=== PATIENT | male | born 1935 | race Caucasian/White ===

== ENCOUNTER → 2016-10-27 | Outpatient (CLI) | payer MEDICARE, OTHER ==
[~2016-10-27] MED LIST: ACET325T38 PO; ACET325T49 PO; ASP81CT; ASP81TEC PO; BETA1TAB15 PO; CIPR-225 PO; CLPD75T; DIGO250T PO; DLT180CCR; FENO54TA PO; FENO67CA PO; GABA600T2 PO; GBPN300C PO; HCT25T; HCT25T PO; HYDR-3583 PO; LEVO500T2 PO; LEVO500T69 PO; LSNP10T PO; MELA5CAP PO; METO-274 PO; METO100T5 PO; METO50TA7 PO; MTP100TCR; MULT-974 PO; NF-TYLARTH PO; NFNEB10T PO; NTR.4SL SL; PHEN-640 PO; PNT40TEC PO; RIVA20TA2 PO; ROSU10TA12; SIMV40TA4 PO; VLS80C; [UNRECOGNIZED DRUG - OTHER] PO; [UNRECOGNIZED DRUG - OTHER] PO; [UNRECOGNIZED DRUG - OTHER] PO
--- OUTSIDE RECORDS SUMMARY | 2016-10-27 11:17 | XMS REPORT | Continuity of Care Document ---
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 If you do not see the information that you expected, contact Release of Information in the Health Information Management department at [phone] for further assistance in locating additional records.[facility] Active Allergies and Adverse Reactions No Known [...] C-Vit Take 1 Cap by mouth Active Y-Xxpyzs-Eed-OM-3 daily. (OCUVITE) 440-57-3-150 qk-iiiw-xq-mg cap MULTIVITAMIN PO Take 1 Tab by [...] Encounters Date Type Specialty Providers Description 10/03/2016 [facility] Radiology Aron Gaines MD Encounter 10/03/2016 Office Visit Orthopedic Surgery Aron Gaines MD Postop check (Primary Dx) 09/29/2016 Orders Only Orthopedic Surgery Aron Gaines MD Surgery follow-up (Primary Dx) 08/29/2016 [facility] Radiology Aron Gaines MD Encounter 08/29/2016 Office Visit Orthopedic Surgery Aron Gaines MD Postop check (Primary Dx) 08/23/2016 Orders Only Orthopedic Surgery Aron Gaines MD Right foot pain (Primary Dx) 08/15/2016 [facility] Radiology Aron Gaines MD Encounter 08/15/2016 Office Visit Orthopedic Surgery Aron Gaines MD Postop check (Primary Dx) 08/11/2016 Orders Only Orthopedic Surgery Aron Gaines MD Right foot pain (Primary Dx) 08/09/2016 Anesthesia Anesthesiology Radha Bernardo MD Event 08/01/2016 [facility] Radiology Gabby Christina APRN Encounter 08/01/2016 Office [...] Taken Blood Pressure 142/95 08/15/2016 11:27 AM MAKE UP EDITOR Pulse 88 08/15/2016 11:27 AM MAKE UP EDITOR Temperature 36.3 C (97.4 F) 07/11/2016 11:05 AM CDT Respiratory Rate - - Height 1.676 m (5' 6") 08/29/2016 1:11 PM MAKE UP EDITOR Weight 92.987 kg (205 lb) 08/29/2016 1:11 PM MAKE UP EDITOR Body Mass Index 33.1 08/29/2016 1:11 PM MAKE UP EDITOR Oxygen Saturation 95% 07/11/2016 11:05 AM CDT Plan of Care Health Maintenance Due Date Last Done Comments Physical (Comprehensive) 1942 Exam Pertussis Vaccine 1945 Tetanus Vaccine 1951 Shingles Vaccine 1994 Prevnar/Pneumovax (#1) 1999 Influenza Vaccine 06/01/2016 Procedures from Last 3 Months Procedure Name Priority Date/Time Associated Diagnosis Comments ANESTHESIA PERIPHERAL Routine 08/09/2016 Results for this NERVE BLOCK 10:36 AM MAKE UP EDITOR procedure are in the results section. ANESTHESIA PERIPHERAL Routine 08/09/2016 Results for this NERVE BLOCK 10:36 AM MAKE UP EDITOR procedure are in the results section. Results [...] - Tue Oct 03, 2016 12:31 PM MAKE UP EDITOR AP, oblique, and lateral projections of the [...]
[2016-10-27 11:27] LABS: BASOPHILS # (AUTO) 0.1 10^3/uL (0.0-0.1); BASOPHILS % (AUTO) 1 % (0-10); EOSINOPHILS # (AUTO) 0.2 10^3/uL (0.0-0.3); EOSINOPHILS % (AUTO) 3 % (0-10); LYMPHOCYTES # (AUTO) 1.2 X 10^3 (1.0-4.0); LYMPHOCYTES % (AUTO) 21 % (12-44); MEAN CORPUSCULAR HEMOGLOBIN 30 PG (25-34); MEAN CORPUSCULAR HGB CONC 33 G/DL (32-36); MEAN CORPUSCULAR VOLUME 91 FL (80-99); MEAN PLATELET VOLUME 8.6 FL (7.4-10.4); MONOCYTES # (AUTO) 0.8 X 10^3 (0.0-1.0); MONOCYTES % (AUTO) 13 % (0-12); NEUTROPHILS # (AUTO) 3.5 X 10^3 (1.8-7.8); NEUTROPHILS % (AUTO) 62 % (42-75); PLATELET COUNT 212 10^3/uL (130-400); RED BLOOD COUNT 4.75 10^6/uL (4.35-5.85); RED CELL DISTRIBUTION WIDTH 13.1 % (10.0-14.5); WHITE BLOOD COUNT 5.7 10^3/uL (4.3-11.0)
[2016-10-27 11:45] LABS: ALANINE AMINOTRANSFERASE 20 U/L (0-55); ALBUMIN 4.4 G/DL (3.2-4.5); ANION GAP 8 MMOL/L (5-14); ASPARTATE AMINO TRANSFERASE 20 U/L (5-34); BILIRUBIN,TOTAL 0.7 MG/DL (0.1-1.0); BLOOD UREA NITROGEN 23 MG/DL (7-18); BUN/CREATININE RATIO 20; CALCIUM 9.3 MG/DL (8.5-10.1); CARBON DIOXIDE 27 MMOL/L (21-32); CHLORIDE 105 MMOL/L (98-107); CREATININE SERUM 1.14 MG/DL (0.60-1.30); GFR ESTIMATED > 60; GLUCOSE 108 MG/DL (70-105); POTASSIUM 4.2 MMOL/L (3.6-5.0); SODIUM 140 MMOL/L (135-145); TOTAL PROTEIN 6.9 G/DL (6.4-8.2)
--- NOTE | 2016-10-27 13:04 | Diagnostic Imaging Report ---
INDICATION: Claudication. TECHNIQUE: Noninvasive arterial study performed. FINDINGS: Segmental limb pressures showed no significant drop-off or abnormality of the waveforms. Ankle-brachial index was 1.0 on the left side and 0.91 on the right side. IMPRESSION: Slight diminishment in ankle brachial index of the right side. Segmental limb pressures showed no significant degradation of the waveform on this side. There is no other significant finding. Dictated by: Dictated on workstation # [id number]
[2016-10-28 07:58] LABS: ERYTHROCYTE SEDIMENTATION RATE 20 MM/HR
== END ==
LOC: RAD 11:12
PROVIDERS: ATTEND Internal Medicine
DX: I70.235 Atherosclerosis of native arteries of right leg with ulceration of other part of foot (principal)
CPT/HCPCS: 36415; 80053; 85025; 85652; 93923

== ENCOUNTER → 2017-01-18 | Outpatient (CLI) | payer MEDICARE, OTHER ==
[2017-01-18 09:36] LABS: BASOPHILS % (AUTO) 1 % (0-10); EOSINOPHILS # (AUTO) 0.1 10^3/uL (0.0-0.3); EOSINOPHILS % (AUTO) 3 % (0-10); LYMPHOCYTES # (AUTO) 1.1 X 10^3 (1.0-4.0); LYMPHOCYTES % (AUTO) 23 % (12-44); MEAN CORPUSCULAR HEMOGLOBIN 30 PG (25-34); MEAN CORPUSCULAR HGB CONC 33 G/DL (32-36); MEAN CORPUSCULAR VOLUME 91 FL (80-99); MONOCYTES # (AUTO) 0.7 X 10^3 (0.0-1.0); MONOCYTES % (AUTO) 15 % (0-12); NEUTROPHILS # (AUTO) 2.8 X 10^3 (1.8-7.8); NEUTROPHILS % (AUTO) 59 % (42-75); PLATELET COUNT 184 10^3/uL (130-400); RED BLOOD COUNT 4.79 10^6/uL (4.35-5.85); RED CELL DISTRIBUTION WIDTH 13.1 % (10.0-14.5); WHITE BLOOD COUNT 4.8 10^3/uL (4.3-11.0)
[2017-01-18 09:55] LABS: ERYTHROCYTE SEDIMENTATION RATE 5 MM/HR (0-30)
--- NOTE | 2017-01-18 12:48 | Diagnostic Imaging Report ---
3 views of the right foot. INDICATION: Nonhealing wound in the foot. FINDINGS: There is fusion hardware across the subtalar joints and proximal tarsal bones with plate and screws seen. There is suggestion of osseous fusion between the cuboid and calcaneus and at the subtalar joint. There is fusion hardware also between the talus and the navicular with uncertain fusion. Decreased bone density is seen overall as well as flattening of the plantar arch. There is bone destruction or focal erosion or periosteal reaction identified. No prior studies are available for comparison. No soft tissue air is seen. IMPRESSION: Post fusion changes in the hindfoot with suggestion of osteopenia and flattening of the plantar arch. No radiographic evidence of osteomyelitis. Dictated by: Dictated on workstation # [id number]
== END ==
LOC: RAD 09:03
PROVIDERS: ATTEND Internal Medicine
DX: I25.10 Atherosclerotic heart disease of native coronary artery without angina pectoris (principal); I70.235 Atherosclerosis of native arteries of right leg with ulceration of other part of foot; S91.301A Unspecified open wound, right foot, initial encounter; T81.31XA Disruption of external operation (surgical) wound, not elsewhere classified, initial encounter; R23.8 Other skin changes
CPT/HCPCS: 36415; 73630; 85025; 85652

== ENCOUNTER 2017-01-22 08:24 | Outpatient (RCR) | payer MEDICARE, OTHER ==
--- OUTSIDE RECORDS SUMMARY | 2016-10-26 08:09 | XMS REPORT | Continuity of Care Document ---
Author Author [facility] Organization [facility] 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 If you do not see the information that you expected, contact Release of Information in the Health Information Management department at [phone] for further assistance in locating additional records.[facility] Active Allergies and Adverse Reactions No Known Allergies Current Medications Prescription Sig. Disp. Refills Start End Date Status Date simvastatin (ZOCOR) 40 mg Take 40 mg by mouth 05/01/20 Active tablet daily. 16 XARELTO 20 mg tab tablet Take 20 mg by mouth at 03/28/20 Active bedtime daily. 16 metoprolol tartrate 100 mg twice daily. 03/02/20 Active (LOPRESSOR) 100 mg tablet 16 hydrochlorothiazide Take 12.5 mg by mouth 05/03/20 Active (HYDRODIURIL) 12.5 mg daily. 16 capsule gabapentin (NEURONTIN) 300 mg at bedtime daily. 03/02/20 Active 300 mg capsule 16 finasteride (PROSCAR) 5 Take 5 mg by mouth at 04/04/20 Active mg tablet bedtime daily. 16 fenofibrate(+) (TRIGLIDE) Take 54 mg by mouth at 03/02/20 Active 54 mg tablet bedtime daily. 16 aspirin EC 81 mg tablet Take 162 mg by mouth Active daily. Take with food. other medication Take 1 Dose by mouth Active daily. Arithomend losartan (COZAAR) 50 mg Take 50 mg by mouth Active tablet daily. Vit C-Vit Take 1 Cap by mouth Active G-Ymrgrq-Cta-OM-3 daily. (OCUVITE) 419-07-3-150 iu-krul-us-mg cap MULTIVITAMIN PO Take 1 Tab by mouth at Active bedtime daily. acetaminophen (TYLENOL) Take 2 Tabs by mouth 0 07/11/20 Active 325 mg tablet every 6 hours as needed. 16 oxyCODONE (ROXICODONE, Take 1-2 Tabs by mouth 110 Tab 0 07/11/20 Active OXY-IR) 5 mg tablet every 3 hours as needed 16 docusate (COLACE) 100 mg Take 1 Cap by mouth twice 180 Cap 3 07/11/20 Active capsule daily. 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 Most Recent Encounters Date Type Specialty Providers Description 10/03/2016 [facility] Radiology Aron Gaines MD Encounter 10/03/2016 Office Visit Orthopedic Surgery Aron Gaines MD Postop check (Primary Dx) 09/29/2016 Orders Only Orthopedic Surgery Aron Gaines MD Surgery follow-up (Primary Dx) 08/29/2016 [facility] Radiology Aron Gaines MD Encounter 08/29/2016 Office Visit Orthopedic Surgery Aron Gaines MD Postop check (Primary Dx) 08/23/2016 Orders Only Orthopedic Surgery Aron Gaines MD Right foot pain (Primary Dx) 08/15/2016 [facility] Radiology Aron Gaines MD Encounter 08/15/2016 Office Visit Orthopedic Surgery Aron Gaines MD Postop check (Primary Dx) 08/11/2016 Orders Only Orthopedic Surgery Aron Gaines MD Right foot pain (Primary Dx) 08/09/2016 Anesthesia Anesthesiology Radha Bernardo MD Event 08/01/2016 [facility] Radiology Gabby Christina APRN Encounter 08/01/2016 Office Visit Orthopedic Surgery Aron Gaines MD Postop check (Primary Dx) 07/28/2016 Orders Only Orthopedic Surgery Gabby Christina APRN Right foot pain (Primary Dx) Social History Tobacco Use Types Packs/Day Years Used Date Never Smoker Smokeless Tobacco: Never Used Alcohol Use Drinks/Week oz/Week Comments No Last Filed Vital Signs Vital Sign Reading Time Taken Blood Pressure 142/95 08/15/2016 11:27 AM COFFEE SHOP MANAGER Pulse 88 08/15/2016 11:27 AM COFFEE SHOP MANAGER Temperature 36.3 C (97.4 F) 07/11/2016 11:05 AM CDT Respiratory Rate - - Height 1.676 m (5' 6") 08/29/2016 1:11 PM COFFEE SHOP MANAGER Weight 92.987 kg (205 lb) 08/29/2016 1:11 PM COFFEE SHOP MANAGER Body Mass Index 33.1 08/29/2016 1:11 PM COFFEE SHOP MANAGER Oxygen Saturation 95% 07/11/2016 11:05 AM CDT Plan of Care Health Maintenance Due Date Last Done Comments Physical (Comprehensive) 1942 Exam Pertussis Vaccine 1945 Tetanus Vaccine 1951 Shingles Vaccine 1994 Prevnar/Pneumovax (#1) 1999 Influenza Vaccine 06/01/2016 Procedures from Last 3 Months Procedure Name Priority Date/Time Associated Diagnosis Comments ANESTHESIA PERIPHERAL Routine 08/09/2016 Results for this NERVE BLOCK 10:36 AM COFFEE SHOP MANAGER procedure are in the results section. ANESTHESIA PERIPHERAL Routine 08/09/2016 Results for this NERVE BLOCK 10:36 AM COFFEE SHOP MANAGER procedure are in the results section. Results from Last 3 Months FOOT COMP MIN 3 VIEWS RIGHT (10/03/2016 11:42 AM)Only the most recent of 4 results within the time period is included. 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 Joint line along the talonavicular and calcaneocuboid joints remains evident suggesting partial incomplete fusion. 2.Mild tibiotalar joint arthrosis. Arterial calcifications. 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 Osteopenia. Finalized by Collin Abdul M.D. on 10/03/2016 12:28 PM. Dictated by Collin Abdul M.D. on 10/03/2016 12:25 PM. Narrative AP, oblique, and lateral projections of the right foot. Clinical Indication: 81 years Male. Right foot surgical follow-up care. Comparison: Right foot radiographs 08/29/2016. Procedure Note Interface, Radiant Results - Tue Oct 03, 2016 12:31 PM COFFEE SHOP MANAGER AP, oblique, and lateral projections of the right foot. Clinical Indication: 81 years Male. Right foot surgical follow-up care. Comparison: Right foot radiographs 08/29/2016. IMPRESSION Findings/IMPRESSION: 1. 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 Joint line along the talonavicular and calcaneocuboid joints remains evident suggesting partial incomplete fusion. 2. Mild tibiotalar joint arthrosis. Arterial calcifications. 3. 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 Osteopenia. Finalized by Collin Abdul M.D. on 10/03/2016 12:28 PM. Dictated by Collin Abdul M.D. on 10/03/2016 12:25 PM. ANESTHESIA PERIPHERAL NERVE BLOCK (08/09/2016 10:36 AM) Narrative Radha Bernardo MD 08/09/2016 10:36 AM Anesthesia Procedure: Peripheral Nerve Block PERIPHERAL NERVE BLOCK Reason for block: at surgeon's request and post-op pain management Staff Anesthesiologist: RADHA BERNARDO Performed by: LESIA NELSON Preprocedure checklist performed: 2 patient identifiers, risks & benefits discussed, patient evaluated, timeout performed, consent obtained, patient being monitored and sterile drape Sterile technique: - Proper hand washing - Cap, mask - Sterile gloves - Skin prep for antisepsis Peripheral Nerve Block Procedure Patient position: supine Monitoring: BP, EKG and continuous pulse ox Block type: popliteal Laterality: right Injection technique: catheter Procedures: ultrasound guided Local infiltration: lidocaine Strength: 1%; Needle/cathether: Needle type: Tuohy Needle gauge: 18 G; Needle length: 3.5 in Needle location: ultrasound guidance Needle insertion depth: 4 cm Catheter at skin depth: 9 cm Procedure Outcome Injection assessment: incremental injection, negative aspiration for heme, no paresthesia on injection and local visualized surrounding nerve on ultrasound Observations: adequate block and patient sedated but conversant throughout block Additional notes: This is a late entry note, for a block that was done on the day of surgery 07/10/2016. Refer to nursing documentation for vitals and monitoring data during procedure. Anesthesia Procedure: Peripheral Nerve Block PERIPHERAL NERVE BLOCK Reason for block: at surgeon's request and post-op pain management Staff Anesthesiologist: RADHA BERNARDO Performed by: LESIA NELSON Preprocedure checklist performed: 2 patient identifiers, risks & benefits discussed, patient evaluated, timeout performed, consent obtained, patient being monitored and sterile drape Sterile technique: - Proper hand washing - Cap, mask - Sterile gloves - Skin prep for antisepsis Peripheral Nerve Block Procedure Patient position: supine Prep: ChloraPrep Monitoring: BP, EKG and continuous pulse ox Block type: saphenous Laterality: right Injection technique: single-shot Procedures: ultrasound guided Local infiltration: lidocaine Strength: 1%; Needle/cathether: Needle type: Tuohy Needle gauge: 18 G; Needle location: ultrasound guidance Procedure Outcome Injection assessment: negative aspiration for heme, no paresthesia on injection, incremental injection and local visualized surrounding nerve on ultrasound This is a late entry note, for a block that was done on the day of surgery 07/10/2016. ANESTHESIA PERIPHERAL NERVE BLOCK (08/09/2016 10:36 AM) Joe Bernardo MD 08/09/2016 10:36 AM Anesthesia Procedure: Peripheral Nerve Block PERIPHERAL NERVE BLOCK Reason for block: at surgeon's request and post-op pain management Staff Anesthesiologist: RADHA BERNARDO Performed by: LESIA NELSON Preprocedure checklist performed: 2 patient identifiers, risks & benefits discussed, patient evaluated, timeout performed, consent obtained, patient being monitored and sterile drape Sterile technique: - Proper hand washing - Cap, mask - Sterile gloves - Skin prep for antisepsis Peripheral Nerve Block Procedure Patient position: supine Monitoring: BP, EKG and continuous pulse ox Block type: popliteal Laterality: right Injection technique: catheter Procedures: ultrasound guided Local infiltration: lidocaine Strength: 1%; Needle/cathether: Needle type: Tuohy Needle gauge: 18 G; Needle length: 3.5 in Needle location: ultrasound guidance Needle insertion depth: 4 cm Catheter at skin depth: 9 cm Procedure Outcome Injection assessment: incremental injection, negative aspiration for heme, no paresthesia on injection and local visualized surrounding nerve on ultrasound Observations: adequate block and patient sedated but conversant throughout block Additional notes: This is a late entry note, for a block that was done on the day of surgery 07/10/2016. Refer to nursing documentation for vitals and monitoring data during procedure. Anesthesia Procedure: Peripheral Nerve Block PERIPHERAL NERVE BLOCK Reason for block: at surgeon's request and post-op pain management Staff Anesthesiologist: RADHA BERNARDO Performed by: LESIA NELSON Preprocedure checklist performed: 2 patient identifiers, risks & benefits discussed, patient evaluated, timeout performed, consent obtained, patient being monitored and sterile drape Sterile technique: - Proper hand washing - Cap, mask - Sterile gloves - Skin prep for antisepsis Peripheral Nerve Block Procedure Patient position: supine Prep: ChloraPrep Monitoring: BP, EKG and continuous pulse ox Block type: saphenous Laterality: right Injection technique: single-shot Procedures: ultrasound guided Local infiltration: lidocaine Strength: 1%; Needle/cathether: Needle type: Tuohy Needle gauge: 18 G; Needle location: ultrasound guidance Procedure Outcome Injection assessment: negative aspiration for heme, no paresthesia on injection, incremental injection and local visualized surrounding nerve on ultrasound This is a late entry note, for a block that was done on the day of surgery 07/10/2016.
[~2017-01-22 08:24] MED LIST changes: +RT-ALBUTEROL SULF 2.5 MG/3 ML PRE-MIX VIAL ONE
== END 2017-01-24 | disposition home or self-care (01) ==
LOC: WOUNDCARE 08:24
PROVIDERS: ATTEND Internal Medicine
DX: I25.10 Atherosclerotic heart disease of native coronary artery without angina pectoris (principal); I70.235 Atherosclerosis of native arteries of right leg with ulceration of other part of foot; T81.31XA Disruption of external operation (surgical) wound, not elsewhere classified, initial encounter
CPT/HCPCS: 11042; 11043; 15275; 87070; 87075; 87077; 87101; 87186; 87205; 97597; 99212

== ENCOUNTER 2017-03-01 08:32 | Outpatient (RCR) | payer MEDICARE, OTHER ==
[~2017-03-01 08:32] MED LIST changes: -RT-ALBUTEROL SULF 2.5 MG/3 ML PRE-MIX VIAL ONE
== END 2017-03-01 16:00 | disposition home or self-care (01) ==
LOC: WOUNDCARE 08:32
PROVIDERS: ATTEND Internal Medicine
DX: T81.31XA Disruption of external operation (surgical) wound, not elsewhere classified, initial encounter (principal); S91.301A Unspecified open wound, right foot, initial encounter; I70.235 Atherosclerosis of native arteries of right leg with ulceration of other part of foot; I25.10 Atherosclerotic heart disease of native coronary artery without angina pectoris
CPT/HCPCS: 15275; 99212

== ENCOUNTER 2017-05-07 04:53 | Inpatient (IN) | payer MEDICARE, OTHER ==
[~2017-05-07] VITALS: Ht 167.6 cm; Wt 101.3 kg
[2017-05-07] MEDS ORDERED: BETH25TA PO (05:02)
[2017-05-07] MEDS ORDERED: TAMS0.4C2 PO (05:02)
[2017-05-07] MEDS ORDERED: FINA5TAB6 PO (05:02)
[2017-05-07] MEDS ORDERED: RIVA20TA PO (05:02)
[2017-05-07] MEDS ORDERED: HYDR12.5 PO (05:02)
[2017-05-07] MEDS ORDERED: fentaNYL INJECTION 100 MCG/2 ML AMP IVP ONE (05:30)
--- NOTE | 2017-05-07 05:31 | ED Abdominal Pain ---
General Chief Complaint: Abdominal/GI Problems Stated Complaint: POSS DIVERTICULITIS Nursing Triage Note: c/o abdomen pain x 2 days Sepsis Screen: No Definite Risk Source of Information: Patient Exam Limitations: No Limitations (MEL JASON MD) History of Present Illness Time Seen By Provider: 05:06 Initial Comments This 81-year-old gentleman presents to the emergency room with diffuse abdominal pain that started on May 05. He had some vomiting that has now resolved. He denies any diarrhea or constipation. He is afebrile at present but reports a temperature of 100 yesterday. He reports having blood in his urine this morning. He is on Xarelto for history of A. fib. Pain is reported as 8/10. He denies any nausea at this time. He does have a history of diverticulitis and presumes this is the same. Patient has a history of colon cancer that was resected. He follows with Dr. Argueta at the cancer center. His wool brusher is Dr. Wilkerson in [place]. His primary care providers Dr. Duvall. (MEL JASON MD) Allergies and Home Medications Allergies Coded Allergies: NKANo Known Allergies (Verified Allergy, Unknown, 03/27/07) Home Medications Acetaminophen 325 Mg Tablet, 650 MG PO BID, (Reported) take 2 (325mg) tabs Bethanechol Chloride 25 Mg Tablet, #120 (Reported) Fenofibrate 54 Mg Tablet, 54 MG PO DAILY, (Reported) Finasteride 5 Mg Tablet, #90 (Reported) Gabapentin 300 Mg Cap, 300 MG PO BID, (Reported) Hydrochlorothiazide 12.5 Mg Capsule, #90 (Reported) Metoprolol Succinate 100 Mg Tab.er.24h, 100 MG PO BID, (Reported) Rivaroxaban 20 Mg Tablet, #90 (Reported) Simvastatin 40 Mg Tablet, 40 MG PO HS, (Reported) Tamsulosin HCl 0.4 Mg Cap.er.24h, #90 (Reported) Vit A/Vit C/Vit E/Zinc/Copper 1 Each Tablet, 1 EACH PO DAILY, (Reported) [Arithrimend] , 2 TAB PO DAILY OTC MED/TAKES FOR ARTHRITIS Prescribed by: ELAINE ACEVES on 04/28/15 1042 [Mk Men's Supplement] , 1 TAB PO DAILY OTC/LOCO CANDELARIO MEN'S VITAMIN Prescribed by: ELAINE ACEVES on 04/28/15 1042 Review of Systems Constitutional: see HPI EENTM: No Symptoms Reported Respiratory: No Symptoms Reported Cardiovascular: No Symptoms Reported Gastrointestinal: See HPI Genitourinary: See HPI Musculoskeletal: no symptoms reported Skin: no symptoms reported Psychiatric/Neurological: No Symptoms Reported Endocrine: No Symptoms Reported Hematologic/Lymphatic: See HPI (MEL JASON MD) Past Dffhqth-Wujvtg-Hpxnex Hx Patient Social History Alcohol Use: Denies Use Recreational Drug Use: No Smoking Status: Never a Smoker Recent Foreign Travel: No Contact w/Someone Who Travel: No Recent Infectious Disease Expo: No Recent Hopitalizations: No (MEL JASON MD) Immunizations Up To Date Tetanus Booster (TDap): Less than 5yrs PED Vaccines UTD: No Date of Pneumonia Vaccine: Jul 15, 2015 (MEL JASON MD) Seasonal Allergies Seasonal Allergies: No (MEL JASON MD) Surgeries HX Surgeries: Yes (hernia repair x 2, rt shoulder ball replaced, lt total shoulder, R foot sx, uro-lift prostate surgery) Surgeries: Bowel Surgery (colon cancer resection), Coronary Stent, Orthopedic (MEL JASON MD) Respiratory Hx Respiratory Disorders: Yes (CPAP at NOC, SOB WITH EXERTION R/T CARDIAC) Respiratory Disorders: Sleep Apnea (MEL JASON MD) Cardiovascular Hx Cardiac Disorders: Yes Cardiac Disorders: Atrial Fibrillation, Coronary Artery Disease, Heart Attack (MEL JASON MD) Neurological Hx Neurological Disorders: No (MEL JASON MD) Reproductive System Hx Reproductive Disorders: No (MEL JASON MD) Genitourinary Hx Genitourinary Disorders: Yes (urinary retention and "slow" to start) Genitourinary Disorders: Prostate Problems (MEL JASON MD) Gastrointestinal Hx Gastrointestinal Disorders: Yes (history of bowel resection from colon cancer. History of colitis.) Gastrointestinal Disorders: Diverticulosis (MEL JASON MD) Musculoskeletal Hx Musculoskeletal Disorders: Yes Musculoskeletal Disorders: Arthritis, Back Injury, Chronic Back Pain (MEL JASON MD) Endocrine Hx Endocrine Disorders: No (MEL JASON MD) HEENT HX ENT Disorders: Yes (bilateral cataracts removed) HEENT Disorders: Cataract (MEL JASON MD) Cancer Hx Cancer: Yes (hx of colon resection) Cancer: Colon (MEL JASON MD) Psychosocial Hx Psychiatric Problems: No (MEL JASON MD) Integumentary HX Skin/Integumentary Disorder: No (MEL JASON MD) Blood Transfusions Hx Blood Disorders: No (MEL JASON MD) Family Medical History Significant Family History: Heart Disease, Hypertension (MEL JASON MD) Physical Exam Vital Signs VS - Last 72 Hours, by Label 05/07/17 04:59 Temp 99.0 Pulse 96 Resp 18 B/P (MAP) 151/117 Pulse Ox 95 O2 Delivery Room Air (SARMAD BETANCOURT MD) Vital Signs Capillary Refill : Less Than 3 Seconds (MEL JASON MD) General Appearance: WD/WN, no apparent distress HEENT: PERRL/EOMI, normal ENT inspection Neck: normal inspection Respiratory: lungs clear, normal breath sounds, no respiratory distress, no accessory muscle use Cardiovascular: regular rate, rhythm, no edema, no murmur Gastrointestinal: normal bowel sounds, soft, tenderness (diffuse severe tenderness even to light percussion) Extremities: normal inspection, no pedal edema Neurologic/Psychiatric: lead mechanical 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 II-XII nml as tested, no motor/sensory deficits, alert, normal mood/affect, oriented x 3 Skin: normal color, warm/dry (MEL JASON MD) Focused Exam Lactic Acid Level Laboratory Tests Test 05/07/17 07:36 Lactic Acid Level 1.22 MMOL/L (0.50-2.00) (SARMAD BETANCOURT MD) Progress/Results/Core Measures Results/Orders Lab Results Laboratory Tests Test 05/07/17 05:25 05/07/17 06:04 05/07/17 07:36 Range/Units White Blood Count 17.5 H 4.3-11.0 10^3/uL Red Blood Count 4.88 4.35-5.85 10^6/uL Hemoglobin 14.7 13.3-17.7 G/DL Hematocrit 44 40-54 % Mean Corpuscular Volume 90 80-99 FL Mean Corpuscular Hemoglobin 30 25-34 PG Mean Corpuscular Hemoglobin Concent 34 32-36 G/DL Red Cell Distribution Width 13.3 10.0-14.5 % Platelet Count 163 130-400 10^3/uL Mean Platelet Volume 9.5 7.4-10.4 FL Neutrophils (%) (Auto) 86 H 42-75 % Lymphocytes (%) (Auto) 3 L 12-44 % Monocytes (%) (Auto) 10 0-12 % Eosinophils (%) (Auto) 0 0-10 % Basophils (%) (Auto) 0 0-10 % Neutrophils # (Auto) 15.1 H 1.8-7.8 X 10^3 Lymphocytes # (Auto) 0.6 L 1.0-4.0 X 10^3 Monocytes # (Auto) 1.8 H 0.0-1.0 X 10^3 Eosinophils # (Auto) 0.0 0.0-0.3 10^3/uL Basophils # (Auto) 0.0 0.0-0.1 10^3/uL Neutrophils % (Manual) 87 % Lymphocytes % (Manual) 1 % Monocytes % (Manual) 10 % Eosinophils % (Manual) 0 % Basophils % (Manual) 0 % Band Neutrophils 1 % Reactive Lymphocytes 1 % Blood Morphology Comment NORMAL Sodium Level 136 135-145 MMOL/L Potassium Level 3.7 3.6-5.0 MMOL/L Chloride Level 100 98-107 MMOL/L Carbon Dioxide Level 24 21-32 MMOL/L Anion Gap 12 5-14 MMOL/L Blood Urea Nitrogen 16 7-18 MG/DL Creatinine 1.11 0.60-1.30 MG/DL Estimat Glomerular Filtration Rate > 60 BUN/Creatinine Ratio 14 Glucose Level 112 H 70-105 MG/DL Calcium Level 9.5 8.5-10.1 MG/DL Total Bilirubin 3.6 H 0.1-1.0 MG/DL Aspartate Amino Transf (AST/SGOT) 28 5-34 U/L Alanine Aminotransferase (ALT/SGPT) 28 0-55 U/L Alkaline Phosphatase 92 40-136 U/L C-Reactive Protein High Sensitivity 23.99 H 0.00-0.50 MG/DL Total Protein 6.9 6.4-8.2 GM/DL Albumin 4.0 3.2-4.5 GM/DL Lipase 17 8-78 U/L Urine Color YELLOW Urine Clarity SLIGHTLY CLOUDY Urine pH 8 5-9 Urine Specific [place] 1.015 L 1.016-1.022 Urine Protein 1+ H NEGATIVE Urine Glucose (UA) NEGATIVE NEGATIVE Urine Ketones NEGATIVE NEGATIVE Urine Nitrite POSITIVE H NEGATIVE Urine Bilirubin NEGATIVE NEGATIVE Urine Urobilinogen NORMAL NORMAL MG/DL Urine Leukocyte Esterase 3+ H NEGATIVE Urine RBC (Auto) 1+ H NEGATIVE Urine RBC RARE /HPF Urine WBC 50-100 H /HPF Urine Squamous Epithelial Cells 2-5 /HPF Urine Crystals NONE /LPF Urine Bacteria LARGE H /HPF Urine Casts NONE /LPF Urine Mucus NEGATIVE /LPF Urine Culture Indicated YES Lactic Acid Level 1.22 0.50-2.00 MMOL/L (SARMAD BETANCOURT MD) My Orders Orders - SARMAD BETANCOURT MD Ct Abdomen/Pelvis W (05/07/17 06:26) Iohexol Injection (Omnipaque 350 Mg/Ml 1 (05/07/17 07:30) Blood Culture (05/07/17 07:27) Lactic Acid Analyzer (05/07/17 07:27) Us Gallbladder [id number] (05/07/17 07:30) Fentanyl Injection (Sublimaze Injection (05/07/17 07:35) Ceftriaxone Injection (Rocephin Injectio (05/07/17 08:15) (SARMAD BETANCOURT MD) Medications Given in ED Current Medications Medications Dose Ordered Sig/Partha Route Start Time Stop Time Status Last Admin Dose Admin Ceftriaxone Sodium 1000 mg/ Sodium Chloride 50 ml @ 100 mls/hr ONCE ONCE IV 05/07/17 08:15 05/07/17 08:44 DC 05/07/17 08:24 100 MLS/HR Fentanyl Citrate 50 mcg ONCE ONCE IVP 05/07/17 05:30 05/07/17 05:32 DC 05/07/17 05:29 50 MCG Iohexol 100 ml ONCE ONCE IV 05/07/17 07:30 05/07/17 07:31 DC 05/07/17 07:19 100 ML Sodium Chloride 1,000 ml @ 0 mls/hr Q0M ONCE IV 05/07/17 05:52 05/07/17 05:54 DC 05/07/17 06:07 0 MLS/HR (SARMAD BETANCOURT MD) Vital Signs/I&O Vital Sign - Last 12Hours 05/07/17 04:59 Temp 99.0 Pulse 96 Resp 18 B/P (MAP) 151/117 Pulse Ox 95 O2 Delivery Room Air (SARMAD BETANCOURT MD) Blood Pressure Mean: 128 Progress Note : Time: 05:37 Progress Note Patient's pain is now tolerable after fentanyl. Imaging will be determined after review of labs. (MEL JASON MD) Progress Note : Progress Note Assumed care from Dr. Urrutia at 0615. Patient reexamined and history obtained. Patient with continued pain. Labs pending. 0630: CT abdomen pelvis ordered. Monitor patient. 0725: CT report pending but gallstones noted on my review. We will add a gallbladder ultrasound. Patient has significant urinary tract infection with markedly elevated white count and CRP which may be both UTI and cholecystitis. Blood cultures and lactic acid ordered. We will initiate Rocephin IV after blood cultures drawn. Fentanyl 50 g IV ordered. Monitor patient. 0820: Gallbladder ultrasound shows multiple stones but unable to visualize common bile duct. There does appear to be a stone stuck at the gallbladder neck. I did discuss the case with Dr. Duvall, patient's primary care doctor. We will get surgical consult but she accepts patient for admission , inpatient status. Dr. Burgos paged. 0905: Discussed case with Dr. Burgos and he except consult. Patient and family agree with plan. (SARMAD BETANCOURT MD) Diagnostic Imaging Diagonstic Imaging: CT Plain Films/CT/US/NM/MRI: abdomen, pelvis Comments Cholelithiasis as before but with new mild to moderate gallbladder dilation and right upper quadrant fat stranding likely centered on the gallbladder, and a 5 mm stone possibly lodged within the gallbladder neck, proximal cystic duct. Mild circumferential wall thickening of the markedly distended urinary bladder without significant. Cystic fat stranding; mild prostatomegaly. Reviewed: Reviewed Night [facility] Study Diagonstic Imaging: Ultrasound Plain Films/CT/US/NM/MRI: abdomen Comments VIA [facility]. [place], [place] NAME: MICHELINE ORTIZ [facility] REC#: [id number] PT STATUS: REG ER : 1935 PHYSICIAN: SARMAD BETANCOURT MD ADMIT DATE: 05/07/17/ER Draft Date of Exam:05/07/17 US GALLBLADDER [id number] PROCEDURE: US Gallbladder. TECHNIQUE: Multiple Real-time grayscale images were obtained over the right upper quadrant in various projections. INDICATION: Right upper quadrant pain. COMPARISON: None. DISCUSSION: Sonographic evaluation of the right upper quadrant was performed. The liver appears normal in echotexture and size. No hepatic mass identified. Multiple stones are noted within the gallbladder including small non-mobile stones within the neck. No gallbladder wall thickening or pericholecystic fluid. No evidence of intrahepatic biliary duct dilatation. The common bile duct and pancreas are obscured due to overlying bowel gas. A positive sonographic Jackson sign was reported. The right kidney appears normal in echotexture and size without evidence of hydronephrosis or renal mass. The right kidney measures 11.9 cm. There is no ascites or abnormal bowel loops identified. IMPRESSION: Cholelithiasis with a positive sonographic Jackson sign. The common bile duct is obscured by bowel gas. There is no gallbladder wall thickening or pericholecystic fluid. The findings are nonspecific for acute cholecystitis. Recommend clinical correlation. A HIDA scan may be of further benefit. Dictated on workstation # [id number] Dict: 05/07/17 0831 Trans: 05/07/17 0835 [id number] Interpreted by: SUZANNE PARRY MD Electronically signed by: 7 on Sunday (SARMAD BETANCOURT MD) Departure Communication Time/Spoke to Admitting Phy: 08:20 Time/Spoke to Consulting Physi: 09:05 (SARMAD BETANCOURT MD) Impression Impression: Primary Impression: Urinary tract infection Qualified Codes: N30.00 - Acute cystitis without hematuria Additional Impression: Cholelithiasis with obstruction Qualified Codes: K80.21 - Calculus of gallbladder without cholecystitis with obstruction Disposition: ADMITTED INPATIENT Condition: Stable Decision to Admit Reason: Admit from ER (General) Decision to Admit/Date: May 07, 2017 Time/Decision to Admit Time: 08:20 (SARMAD BETANCOURT MD) Departure-Patient Inst. Referrals: TEQUILA DUVALL MD (PCP/Family) Primary Care Physician MEL JASON MD May 07, 2017 05:31 SARMAD BETANCOURT MD May 07, 2017 07:47
[2017-05-07 05:47] LABS: BASOPHILS % (AUTO) 0 % (0-10); EOSINOPHILS % (AUTO) 0 % (0-10); LYMPHOCYTES # (AUTO) 0.6 X 10^3 (1.0-4.0); LYMPHOCYTES % (AUTO) 3 % (12-44); MEAN CORPUSCULAR HEMOGLOBIN 30 PG (25-34); MEAN CORPUSCULAR HGB CONC 34 G/DL (32-36); MEAN CORPUSCULAR VOLUME 90 FL (80-99); MEAN PLATELET VOLUME 9.5 FL (7.4-10.4); MONOCYTES # (AUTO) 1.8 X 10^3 (0.0-1.0); MONOCYTES % (AUTO) 10 % (0-12); NEUTROPHILS # (AUTO) 15.1 X 10^3 (1.8-7.8); NEUTROPHILS % (AUTO) 86 % (42-75); PLATELET COUNT 163 10^3/uL (130-400); RED BLOOD COUNT 4.88 10^6/uL (4.35-5.85); RED CELL DISTRIBUTION WIDTH 13.3 % (10.0-14.5); WHITE BLOOD COUNT 17.5 10^3/uL (4.3-11.0)
[2017-05-07] MEDS ORDERED: NS IV 1000 ML 1,000 ML IV ONE (05:52)
[2017-05-07 06:03] LABS: BAND NEUTROPHILS 1 %; BASOPHILS % (MANUAL) 0 %; EOSINOPHILS % (MANUAL) 0 %; LYMPHOCYTES % (MANUAL) 1 %; NEUTROPHILS % (MANUAL) 87 %; REACTIVE LYMPHOCYTES 1 %
[2017-05-07 06:11] LABS: BILIRUBIN,URINE NEGATIVE (NEGATIVE); KETONES,URINE NEGATIVE (NEGATIVE); LEUKOCYTE ESTERASE ,URINE 3+ (NEGATIVE); NITRITE,URINE POSITIVE (NEGATIVE); PH,URINE 8 (5-9); PROTEIN,URINE 1+ (NEGATIVE); UROBILINOGEN,URINE NORMAL (NORMAL)
[2017-05-07 06:13] LABS: ALANINE AMINOTRANSFERASE 28 U/L (0-55); ANION GAP 12 MMOL/L (5-14); ASPARTATE AMINO TRANSFERASE 28 U/L (5-34); BILIRUBIN,TOTAL 3.6 MG/DL (0.1-1.0); BLOOD UREA NITROGEN 16 MG/DL (7-18); BUN/CREATININE RATIO 14; CALCIUM 9.5 MG/DL (8.5-10.1); CARBON DIOXIDE 24 MMOL/L (21-32); CHLORIDE 100 MMOL/L (98-107); CREATININE SERUM 1.11 MG/DL (0.60-1.30); GFR ESTIMATED > 60; GLUCOSE 112 MG/DL (70-105); LIPASE 17 U/L (8-78); POTASSIUM 3.7 MMOL/L (3.6-5.0); SODIUM 136 MMOL/L (135-145); TOTAL PROTEIN 6.9 GM/DL (6.4-8.2); hs C REACTIVE PROTEIN 23.99 MG/DL (0.00-0.50)
[2017-05-07 06:18] LABS: WBC,URINE 50-100 /HPF
[2017-05-07] MEDS ORDERED: IOHEXOL 350 MG/ML 100 ML (OMNIPAQUE 350) VIAL IV ONE (07:30)
[2017-05-07] MEDS ORDERED: fentaNYL INJECTION 100 MCG/2 ML AMP IVP STA (07:35)
[2017-05-07] MEDS ORDERED: cefTRIAXone INJECTION 1,000 MG in NS (IVPB) 50 ML IV ONE (08:15)
--- NOTE | 2017-05-07 08:35 | Diagnostic Imaging Report ---
PROCEDURE: US Gallbladder. TECHNIQUE: Multiple Real-time grayscale images were obtained over the right upper quadrant in various projections. INDICATION: Right upper quadrant pain. COMPARISON: None. DISCUSSION: Sonographic evaluation of the right upper quadrant was performed. The liver appears normal in echotexture and size. No hepatic mass identified. Multiple stones are noted within the gallbladder including small non-mobile stones within the neck. No gallbladder wall thickening or pericholecystic fluid. No evidence of intrahepatic biliary duct dilatation. The common bile duct and pancreas are obscured due to overlying bowel gas. A positive sonographic Jackson sign was reported. The right kidney appears normal in echotexture and size without evidence of hydronephrosis or renal mass. The right kidney measures 11.9 cm. There is no ascites or abnormal bowel loops identified. IMPRESSION: Cholelithiasis with a positive sonographic Jackson sign. The common bile duct is obscured by bowel gas. There is no gallbladder wall thickening or pericholecystic fluid. The findings are nonspecific for acute cholecystitis. Recommend clinical correlation. A HIDA scan may be of further benefit. Dictated by: Dictated on workstation # [id number]
--- NOTE | 2017-05-07 09:12 | Diagnostic Imaging Report ---
PROCEDURE: CT abdomen and pelvis with contrast. TECHNIQUE: Multiple contiguous axial images were obtained through the abdomen and pelvis after administration of intravenous contrast. INDICATION: Abdominal pain. FINDINGS: The lung bases demonstrate minimal atelectasis. The liver contour is lobulated which could relate to underlying chronic liver disease. The gallbladder is dilated with the multiple stones identified including a stone in the neck of the gallbladder. There is a fatty stranding and minimal amount of free fluid in the along the inferior aspect of the gallbladder. No significant wall thickening. The findings are concerning for early acute cholecystitis. The spleen is not enlarged. The adrenal glands and the pancreas appear unremarkable. The kidneys have symmetric enhancement and contrast excretion. There is a simple renal cyst measuring 2.5 cm in size. The abdominal aorta is normal in caliber. No para-aortic significantly enlarged lymph nodes are seen. The urinary bladder is mildly dilated. The prostate gland appears mildly enlarged with fiducial markers probably related to prostate cancer therapy in the past. There is a colonic anastomosis in the sigmoid region. No bowel obstruction. The appendix is normal. There is a tiny indirect left inguinal hernia. The osseous structures demonstrate prominent degenerative changes. IMPRESSION: 1. There are multiple gallstones including gallstone in the gallbladder neck. The gallbladder is dilated with surrounding fatty stranding concerning for early cholecystitis. 2. Hepatic steatosis. Dictated by: Dictated on workstation # [id number]
--- NOTE | 2017-05-07 09:36 | History & Physicial ---
History of Present Illness History of Present Illness Reason for visit/HPI PT IS AN 81 Y/O MALE WHO IS KNOWN TO ME FROM CLINIC. HE REPORTS THAT HE WAS FEELING POORLY ON SUNDAY. HE REPORTS NAUSEA, ABDOMINAL PAIN AND THEN IT STARTED TO IMPROVE, THEN LATE SUNDAY NIGHT, EARLY SUNDAY MORNING HE HAD A RECURRENCE OF HIS ABDOMINAL PAIN, NAUSEA, FEVER. HIS INSISTED ON LETICIA GOING TO THE EMERGENCY DEPARTMENT WHERE HE WAS FOUND TO HAVE ACUTE CHOLELITHIASIS WITH A STONE IN THE NECK OF THE GALLBLADDER, AND AN ACUTE URINARY TRACT INFECTION WITH ELEVATED CRP OF 23 AND WHITE COUNT OF 17, AND ELEVATED BILIRUBIN WELL. Date of Admission May 07, 2017 at 08:20 Date Seen by Provider: May 08, 2017 Time Seen by Provider: 18:30 I consulted on this patient on 05/07/17 18:30 Attending Physician Tequila Webster MD Admitting Physician Tequila Webster MD Consult Allergies and Home Medications Allergies Coded Allergies: NKANo Known Allergies (Verified Allergy, Unknown, 05/07/17) Home Medications Acetaminophen 325 Mg Tablet, 650 MG PO BID, (Reported) TAKES 2 (325MG) TABLETS Aspirin 81 Mg Tablet.dr, 162 MG PO DAILY, (Reported) TAKES 2 (81MG) TABLETS Bethanechol Chloride 25 Mg Tablet, 25 MG PO QID, (Reported) Fenofibrate 54 Mg Tablet, 54 MG PO HS, (Reported) Finasteride 5 Mg Tablet, 5 MG PO HS, (Reported) Gabapentin 300 Mg Capsule, 300 MG PO HS, (Reported) Hydrochlorothiazide 12.5 Mg Capsule, 12.5 MG PO DAILY, (Reported) Metoprolol Tartrate 100 Mg Tablet, 100 MG PO BID, (Reported) Rivaroxaban 20 Mg Tablet, 20 MG PO HS, (Reported) Simvastatin 40 Mg Tablet, 40 MG PO HS, (Reported) Tamsulosin HCl 0.4 Mg Cap.er.24h, 0.4 MG PO DAILY, (Reported) Vit C/Vit E/Lutein/Min/Interior-3 1 Each Capsule, 1 CAP PO DAILY, (Reported) [Arithrimend] , 2 TAB PO DAILY, (Reported) [[place] Men's Vit] , 1 TAB PO HS, (Reported) Past Vwcouns-Nsepmx-Sfjkjd Hx Patient Social History Marrital Status: Living Status: LIVES AT HOME WITH HIS SPOUSE Employed/Student: part-time employed ([employer]), retired ([employer]) Alcohol Use: Denies Use Recreational Drug Use: No Smoking Status: Never a Smoker 2nd Hand Smoke Exposure: No Physical Abuse Screen: No Sexual Abuse: No Recent Foreign Travel: No Contact w/other who traveled: No Recent Hopitalizations: No Recent Infectious Disease Expo: No Immunizations Up To Date Tetanus Booster (TDap): Less than 5yrs Date of Pneumonia Vaccine: Jul 15, 2015 Seasonal Allergies Seasonal Allergies: No Surgeries HX Surgeries: Yes (hernia repair x 2, rt shoulder ball replaced, lt total shoulder, R foot sx, uro-lift prostate surgery) Surgeries: Bowel Surgery (colon cancer resection), Coronary Stent, Orthopedic Respiratory Hx Respiratory Disorders: Yes (CPAP at NOC, SOB WITH EXERTION R/T CARDIAC) Cardiovascular Hx Cardiovascular Disorders: Yes Cardiac Disorders: Atrial Fibrillation, Coronary Artery Disease, Heart Attack Neurological Hx Neurological Disorders: No Reproductive System Hx Reproductive Disorders: No Sexually Transmitted Disease: No HIV/AIDS: No Genitourinary Hx Genitourinary Disorders: Yes (urinary retention and "slow" to start) Genitourinary Disorders: Prostate Problems Gastrointestinal Hx Gastrointestinal Disorders: Yes (history of bowel resection from colon cancer. History of colitis.) Gastrointestinal Disorders: Diverticulosis Musculoskeletal Hx Musculoskeletal Disorders: Yes Musculoskeletal Disorders: Arthritis, Back Injury, Chronic Back Pain Endocrine Hx Endocrine Disorders: No HEENT HX ENT Disorders: Yes (bilateral cataracts removed) HEENT Disorders: Cataract Cancer Hx Cancer: Yes (hx of colon resection) Cancer: Colon Psychosocial Hx Psychiatric Problems: No Integumentary HX Skin/Integumentary Disorder: No Blood Transfusions Hx Blood Disorders: No Adverse Reaction to a Blood Tr: No Reviewed Nursing Assessment Reviewed/Agree w Nursing PMH: Yes Family Medical History Significant Family History: Heart Disease, Hypertension Constitutional: chills, diaphoresis, fever, weakness EENTM: No hoarseness, No throat pain, No throat swelling Respiratory: No cough, No dyspnea on exertion, No short of breath Cardiovascular: No chest pain, No edema, No palpitations Gastrointestinal: RUQ, RLQ, abdominal pain, nausea Genitourinary: hematuria Musculoskeletal: No back pain, No joint pain, No muscle weakness Skin: No dryness, No rash Psychiatric/Neurological: Denies Anxiety, Denies Depressed, Weakness All Other Systems Reviewed Negative Unless Noted: Yes Physical Exam Vital Signs Vital Sign - Last 12Hours 05/07/17 04:59 Temp 99.0 Pulse 96 Resp 18 B/P (MAP) 151/117 Pulse Ox 95 O2 Delivery Room Air Capillary Refill : Less Than 3 Seconds General Appearance: No Apparent Distress, WD/WN Eyes: Bilateral Eye EOMI, Bilateral Eye Normal Inspection, Bilateral Eye PERRL HEENT: PERRL/EOMI, Pharynx Normal Neck: Full Range of Motion, Supple Respiratory: Chest Non Tender, Lungs Clear, Normal Breath Sounds, No Accessory Muscle Use, No Respiratory Distress Cardiovascular: Regular Rate, Rhythm, No Edema Gastrointestinal: Normal Bowel Sounds, Soft, Tenderness (RUQ, EPIGASTRIUM RLQ) Rectal: Deferred Back: No Vertebral Tenderness Extremity: Normal Capillary Refill, Non Tender, No Calf Tenderness, No Pedal Edema Neurologic/Psychiatric: Alert, Oriented x3, No Motor/Sensory Deficits, Normal Mood/Affect, fruit 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 BREWER - PLAN FOR HOLDING XARELTO X 48 HOURS, WAIT ON BILIRUBIN LEVELS, DR. BREWER HAS DISCUSSED WITH GI SPECIALIST - PLAN TO SEE IF BILIRUBIN LEVEL IMPROVES TOMORROW TO DETERMINE NEED FOR PRE-OPERATIVE ERCP. IF BILIRUBIN LEVEL IMPROVES, THEN WILL DO SURGERY FOR CHOLECYSTECTOMY AND INTRAOPERATIVE CHOLANGIOGRAM ON Sunday05/09/17. URINARY TRACT INFECTION - ON ROCEPHIN, MONITOR URINE CULTURE REPORT. ELEVATED CRP AND LEUKOCYTOSIS DUE TO ACUTE CHOLELITHIASIS AND UTI. HYPERTENSION - CONTINUE WITH METOPROLOL HYPERLIPIDEMIA - CONTINUE STATIN ATRIAL FIBRILLATION - HOLD XARELTO - CONTINUE WITH LOVENOX, RESTART XARELTO DAY AFTER SURGERY. CHRONIC ANTICOAGULANT USE (NOAC USE - XARELTO) - HOLD WHILE PLANNING ON SURGERY - RESTART DAY AFTER SURGERY. GI PROPHYLAXIS - PPI DVT PROPHYLAXIS - LOVENOX, SCD'S Problems: Admission Diagnosis ACUTE CHOLECYSTITIS CHOLELITHIASIS HYPERBILIRUBINEMIA URINARY TRACT INFECTION ELEVATED CRP LEUKOCYTOSIS HYPERTENSION HYPERLIPIDEMIA ATRIAL FIBRILLATION CHRONIC ANTICOAGULANT USE (NOAC USE - XARELTO) TEQUILA WEBSTER MD May 07, 2017 09:36
[2017-05-07] MEDS ORDERED: ONDANSETRON 4 MG/2 ML (SDV) Z0FRAN IVP PRN (09:45)
[2017-05-07] MEDS ORDERED: PROMETHAZINE INJ 25 MG/ML (PHENERGAN) AMP IVP PRN (09:45)
[2017-05-07] MEDS: NS IV 1000 ML 1,000 ML IV SCH ×2 (10:05→17:56)
[2017-05-07 10:10] VITALS: BP 150/82
[2017-05-07] MEDS ORDERED: SIMV40TA4 PO (10:14)
[2017-05-07] MEDS ORDERED: GABA-488 PO (10:14)
[2017-05-07] MEDS ORDERED: FENO54TA PO (10:14)
[2017-05-07] MEDS ORDERED: METO100T2 PO (10:14)
[2017-05-07] MEDS ORDERED: [UNRECOGNIZED DRUG - OTHER] PO (10:17)
[2017-05-07] MEDS ORDERED: ASPI-983 PO (10:27)
[2017-05-07] MEDS ORDERED: VIT1CAPS9 PO (10:27)
[2017-05-07] MEDS ORDERED: [UNRECOGNIZED DRUG - OTHER] PO (10:27)
[2017-05-07 12:13] VITALS: BP 118/73
[2017-05-07] MEDS: fentaNYL INJECTION 100 MCG/2 ML AMP IVP PRN (15:51)
[2017-05-07 16:00] VITALS: BP 125/71
[2017-05-07] MEDS: KETOROLAC 15 MG/ML VIAL IVP PRN ×2 (16:33→23:57)
[2017-05-07] MEDS: ALFUZOSIN HCL 10 MG TAB (UROXATRAL) PO SCH (17:56)
[2017-05-07] MEDS: ENOXAPARIN 40 MG/0.4 ML (LOVENOX) SYR SC SCH (17:56)
[2017-05-07] MEDS: BETHANECHOL 25 MG (URECHOLINE) TAB PO SCH ×2 (17:56→20:20)
[2017-05-07] MEDS ORDERED: PIPERACILLIN/TAZOBACTAM 4.5 GM/NS 100 ML IV NR ×2 (18:00)
--- NOTE | 2017-05-07 18:00 | Consultation ---
History of Present Illness History of Present Illness Patient Consulted On(amisha/time) 05/07/17 17:56 Date Seen by Provider: May 07, 2017 Time Seen by Provider: 16:25 Reason for Visit: abdominal pain fever and chills History of Present Illness acute onset of diffuse abdominal pain 3 days ago, followed by fever and chills, resulting in ER visit. Evaluation is indicative of possible urinary tract infection with complicated gallstone disease.bilirubin is elevated with normal transaminases and alkaline phosphatase. Allergies and Home Medications Allergies Coded Allergies: NKANo Known Allergies (Verified Allergy, Unknown, 05/07/17) Home Medications Acetaminophen 325 Mg Tablet, 650 MG PO BID, (Reported) TAKES 2 (325MG) TABLETS Aspirin 81 Mg Tablet.dr, 162 MG PO DAILY, (Reported) TAKES 2 (81MG) TABLETS Bethanechol Chloride 25 Mg Tablet, 25 MG PO QID, (Reported) Fenofibrate 54 Mg Tablet, 54 MG PO HS, (Reported) Finasteride 5 Mg Tablet, 5 MG PO HS, (Reported) Gabapentin 300 Mg Capsule, 300 MG PO HS, (Reported) Hydrochlorothiazide 12.5 Mg Capsule, 12.5 MG PO DAILY, (Reported) Metoprolol Tartrate 100 Mg Tablet, 100 MG PO BID, (Reported) Rivaroxaban 20 Mg Tablet, 20 MG PO HS, (Reported) Simvastatin 40 Mg Tablet, 40 MG PO HS, (Reported) Tamsulosin HCl 0.4 Mg Cap.er.24h, 0.4 MG PO DAILY, (Reported) Vit C/Vit E/Lutein/Min/[place]-3 1 Each Capsule, 1 CAP PO DAILY, (Reported) [Arithrimend] , 2 TAB PO DAILY, (Reported) [Seble Henley Men's Vit] , 1 TAB PO HS, (Reported) Past Cfqtzbf-Wcistg-Vdyvim Hx Patient Social History Alcohol Use: Denies Use Recreational Drug Use: No Smoking Status: Never a Smoker Recent Foreign Travel: No Contact w/Someone Who Travel: No Recent Infectious Disease Expo: No Recent Hopitalizations: Yes (JULY AT FOOT SURGERY RIGHT FOOT) Physical Abuse Screen: No Sexual Abuse: No Immunizations Up To Date Tetanus Booster (TDap): Less than 5yrs PED Vaccines UTD: No Date of Pneumonia Vaccine: Jul 15, 2015 Seasonal Allergies Seasonal Allergies: No Surgeries HX Surgeries: Yes (hernia repair x 2, rt shoulder ball replaced, lt total shoulder, R foot sx, uro-lift prostate surgery) Surgeries: Bowel Surgery (colon cancer resection), Coronary Stent, Orthopedic Respiratory Hx Respiratory Disorders: Yes (CPAP at NOC, SOB WITH EXERTION R/T CARDIAC) Respiratory Disorders: Sleep Apnea Cardiovascular Hx Cardiac Disorders: Yes Cardiac Disorders: Atrial Fibrillation, Coronary Artery Disease, Heart Attack Neurological Hx Neurological Disorders: No Reproductive System Hx Reproductive Disorders: No Genitourinary Hx Genitourinary Disorders: Yes (urinary retention and "slow" to start) Genitourinary Disorders: Prostate Problems Gastrointestinal Hx Gastrointestinal Disorders: Yes (history of bowel resection from colon cancer. History of colitis.) Gastrointestinal Disorders: Diverticulosis Musculoskeletal Hx Musculoskeletal Disorders: Yes Musculoskeletal Disorders: Arthritis, Back Injury, Chronic Back Pain Endocrine Hx Endocrine Disorders: No HEENT HX ENT Disorders: Yes (bilateral cataracts removed) HEENT Disorders: Cataract Cancer Hx Cancer: Yes (hx of colon resection) Cancer: Colon Psychosocial Hx Psychiatric Problems: No Integumentary HX Skin/Integumentary Disorder: No Blood Transfusions Hx Blood Disorders: No Family Medical History Significant Family History: Heart Disease, Hypertension Family Medial History: ALS (amyotrophic lateral sclerosis) 19 FATHER G8 BROTHER G8 SISTER Alzheimer's disease 19 FATHER FH: Alzheimers disease 19 FATHER Myocardial infarction 19 MOTHER Review of Systems-General Constitutional: chills, fever, malaise EENTM: no symptoms reported Respiratory: no symptoms reported Cardiovascular: no symptoms reported Gastrointestinal: RLQ, abdominal pain (RUQ) Genitourinary: dysuria, frequency Musculoskeletal: joint pain Skin: change in color Psychiatric/Neurological: No Symptoms Reported Physical Exam-General Problems Physical Exam Vital Signs Vital Sign - Last 12Hours 05/07/17 04:59 Temp 99.0 Pulse 96 Resp 18 B/P (MAP) 151/117 Pulse Ox 95 O2 Delivery Room Air Capillary Refill : Less Than 3 Seconds General Appearance: no apparent distress HEENT: normal ENT inspection Neck: non-tender Respiratory: lungs clear Cardiovascular: no JVD, irregularly irregular Gastrointestinal: non tender, soft, other Extremities: non-tender Neurologic/Psychiatric: alert, oriented x 3 Skin: jaundice Comments laparoscopic scars without any incisional hernia. No mass palpable Assessment/Plan Assessment/Plan Admission Diagnosis/Plan gentleman with gallstones and elevated bilirubin. Possible choledocholithiasis with early cholangitis to be considered. UTI, cultures pending. Reasonable to continue IV antibiotics and repeat his liver function tests in the morning. Should bilirubin returned to normal, he would undergo cholecystectomy; otherwise, endoscopic ultrasound plus or minus ERCP would be performed first. Clinical Quality Measures DVT/VTE Risk/Contraindication: VTE Present on Admission: No Risk Factor Score Per Nursin RFS Level Per Nursing on Admit: 4+=Very High ABDULAZIZ BREWER MD May 07, 2017 6:00 pm
[2017-05-07 19:53] VITALS: BP 103/61
[2017-05-07] MEDS: SIMvastatin 40 MG (ZOCOR) TAB PO SCH (20:19)
[2017-05-07] MEDS: FINASTERIDE (PROSCAR) 5 MG TAB PO SCH (20:20)
[2017-05-07] MEDS: meTOprolol TARTRATE 50 MG (LOPRESSOR) TAB PO SCH (20:20)
[2017-05-07] MEDS: ACETAMINOPHEN 325 MG TABLET/CAPLET (TYLENOL) PO SCH (20:20)
[2017-05-07] MEDS: PIPERACILLIN SODIUM/TAZOBACTAM 4.5 GM in NS (IVPB) 100 ML IV SCH (23:49)
[2017-05-08] VITALS: BP 105/63
[2017-05-08] MEDS: NS IV 1000 ML 1,000 ML IV SCH ×3 (02:08→15:22)
[2017-05-08 04:00] VITALS: BP 113/73
[2017-05-08 06:22] LABS: BASOPHILS % (AUTO) 0 % (0-10); EOSINOPHILS # (AUTO) 0.1 10^3/uL (0.0-0.3); EOSINOPHILS % (AUTO) 1 % (0-10); LYMPHOCYTES # (AUTO) 0.6 X 10^3 (1.0-4.0); LYMPHOCYTES % (AUTO) 5 % (12-44); MEAN CORPUSCULAR HEMOGLOBIN 30 PG (25-34); MEAN CORPUSCULAR HGB CONC 33 G/DL (32-36); MEAN CORPUSCULAR VOLUME 91 FL (80-99); MEAN PLATELET VOLUME 10.1 FL (7.4-10.4); MONOCYTES # (AUTO) 1.2 X 10^3 (0.0-1.0); MONOCYTES % (AUTO) 9 % (0-12); NEUTROPHILS # (AUTO) 10.5 X 10^3 (1.8-7.8); NEUTROPHILS % (AUTO) 85 % (42-75); PLATELET COUNT 133 10^3/uL (130-400); RED BLOOD COUNT 4.24 10^6/uL (4.35-5.85); RED CELL DISTRIBUTION WIDTH 13.4 % (10.0-14.5); WHITE BLOOD COUNT 12.4 10^3/uL (4.3-11.0)
[2017-05-08 06:49] LABS: ALBUMIN 3.2 GM/DL (3.2-4.5); BILIRUBIN,TOTAL 2.8 MG/DL (0.1-1.0); CALCIUM 8.7 MG/DL (8.5-10.1); CREATININE SERUM 1.29 MG/DL (0.60-1.30); POTASSIUM 3.9 MMOL/L (3.6-5.0); TOTAL PROTEIN 5.9 GM/DL (6.4-8.2)
[2017-05-08] MEDS: meTOprolol TARTRATE 50 MG (LOPRESSOR) TAB PO SCH ×2 (07:51→20:20)
[2017-05-08] MEDS: PIPERACILLIN SODIUM/TAZOBACTAM 4.5 GM in NS (IVPB) 100 ML IV SCH ×3 (07:51→23:20)
[2017-05-08] MEDS: ACETAMINOPHEN 325 MG TABLET/CAPLET (TYLENOL) PO SCH ×2 (07:51→20:20)
[2017-05-08] MEDS: BETHANECHOL 25 MG (URECHOLINE) TAB PO SCH ×4 (07:51→20:21)
[2017-05-08 08:00] VITALS: BP 151/69
--- NOTE | 2017-05-08 08:31 | Progress Note (SOAP) ---
Subjective Date Seen by Provider: May 08, 2017 Time Seen by Provider: 08:31 Subjective/Events-last exam PT REPORTS THAT HE IS FEELING A LITTLE BETTER, HE STILL HAS ABDOMINAL PAIN, MILD NAUSEA. STAFF REPORTS A FEVER LAST NIGHT, IMPROVED WITH TYLENOL AND TORADOL. Review of Systems General: Fatigue HEENT: No Head Aches Pulmonary: No Dyspnea, No Cough Cardiovascular: No: Chest Pain, Palpitations Gastrointestinal: Abdominal Pain, Nausea Genitourinary: No Dysuria Neurological: Weakness, No: Confusion Objective Exam Vital Signs Date Time Temp Pulse Resp B/P (MAP) Pulse Ox O2 Delivery O2 Flow Rate FiO2 05/08/17 04:00 97.8 77 16 113/73 95 NIV CPAP 05/08/17 00:00 98.3 77 20 105/63 96 NIV CPAP 05/07/17 21:00 99.3 05/07/17 19:53 99.5 96 20 103/61 92 Room Air 05/07/17 17:57 99.5 05/07/17 17:00 100.0 05/07/17 16:33 100.9 05/07/17 16:00 101.1 102 19 125/71 93 Room Air 05/07/17 12:13 100.7 85 18 118/73 90 Room Air 05/07/17 10:30 Room Air 05/07/17 10:10 99.7 64 20 150/82 91 Room Air 05/07/17 09:20 68 16 99 I & O 05/08/17 07:00 Intake Total 1885 ml Output Total 800 ml Balance 1085 ml Capillary Refill : Less Than 3 Seconds General Appearance: No Apparent Distress, WD/WN HEENT: PERRL/EOMI, Pharynx Normal Neck: Full Range of Motion, Supple Respiratory: Chest Non Tender, Lungs Clear, Normal Breath Sounds, No Respiratory Distress Cardiovascular: Regular Rate, Rhythm, No Edema Gastrointestinal: normal bowel sounds, tenderness (RUQ, RLQ, EPIGASTRIUM) Extremity: Normal Capillary Refill, No Calf Tenderness, No Pedal Edema Neurologic/Psychiatric: Alert, Oriented x3, No Motor/Sensory Deficits, Normal Mood/Affect Skin: Normal Color, Warm/Dry Lymphatic: No Adenopathy Results Lab Laboratory Tests 05/08/17 05:20: White Blood Count 12.4H, Red Blood Count 4.24L, Hemoglobin 12.7L, Hematocrit 39L , Mean Corpuscular Volume 91, Mean Corpuscular Hemoglobin 30, Mean Corpuscular Hemoglobin Concent 33, Red Cell Distribution Width 13.4, Platelet Count 133, Mean Platelet Volume 10.1, Neutrophils (%) (Auto) 85H, Lymphocytes (%) (Auto) 5L , Monocytes (%) (Auto) 9, Eosinophils (%) (Auto) 1, Basophils (%) (Auto) 0, Neutrophils # (Auto) 10.5H, Lymphocytes # (Auto) 0.6L, Monocytes # (Auto) 1.2H, Eosinophils # (Auto) 0.1, Basophils # (Auto) 0.0, Sodium Level 137, Potassium Level 3.9, Chloride Level 104, Carbon Dioxide Level 22, Anion Gap 11, Blood Urea Nitrogen 21H, Creatinine 1.29, Estimat Glomerular Filtration Rate 53, BUN/ Creatinine Ratio 16, Glucose Level 94, Calcium Level 8.7, Total Bilirubin 2.8H, Aspartate Amino Transf (AST/SGOT) 20, Alanine Aminotransferase (ALT/SGPT) 19, Alkaline Phosphatase 102, Total Protein 5.9L, Albumin 3.2 Microbiology 05/07/17 Urine Culture - Preliminary, Resulted Gram Negative David Probable Enterococcus Species Assessment/Plan Assessment/Plan Assess & Plan/Chief Complaint ACUTE CHOLECYSTITIS CHOLELITHIASIS HYPERBILIRUBINEMIA URINARY TRACT INFECTION ELEVATED CRP LEUKOCYTOSIS HYPERTENSION HYPERLIPIDEMIA ATRIAL FIBRILLATION 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 BREWER - PLAN FOR HOLDING XARELTO X 48 HOURS, WAIT ON BILIRUBIN LEVELS, DR. BREWER HAS DISCUSSED WITH GI SPECIALIST - WITH IMPROVED BILIRUBIN LEVEL TODAY, THE PLAN IS TO GO FORWARD WITH SURGERY FOR CHOLECYSTECTOMY AND INTRAOPERATIVE CHOLANGIOGRAM ON Sunday05/09/17. ENTEROCOCCAL URINARY TRACT INFECTION - ON ZOSYN MONITOR URINE SENSITIVITY ELEVATED CRP AND LEUKOCYTOSIS DUE TO ACUTE CHOLELITHIASIS AND UTI - IMPROVED WHITE COUNT. HYPERTENSION - CONTINUE WITH METOPROLOL HYPERLIPIDEMIA - CONTINUE STATIN ATRIAL FIBRILLATION - HOLD XARELTO - CONTINUE WITH LOVENOX, RESTART XARELTO DAY AFTER SURGERY. CHRONIC ANTICOAGULANT USE (NOAC USE - XARELTO) - HOLD WHILE PLANNING ON SURGERY - RESTART DAY AFTER SURGERY. GI PROPHYLAXIS - PPI DVT PROPHYLAXIS - LOVENOX, SCD'S Clinical Quality Measures DVT/VTE Risk/Contraindication: VTE Present on Admission: No Risk Factor Score Per Nursin RFS Level Per Nursing on Admit: 4+=Very High TEQUILA WEBSTER MD May 08, 2017 08:31
--- NOTE | 2017-05-08 08:53 | Progress Note (SOAP) ---
Subjective Date Seen by Provider: May 08, 2017 Time Seen by Provider: 08:15 Subjective/Events-last exam fever last night. Enterococcus cultured from urine. Sensitivity pending. Review of Systems General: Malaise HEENT: No Head Aches, No Eye Pain, No Ear Pain, No Dysphasia, No Sinus Congestion, No Post Nasal Drip, No Sore Throat Pulmonary: No Dyspnea, No Cough, No Pleuritic Chest Pain Cardiovascular: No: Chest Pain, Edema, Lt Headedness, Orthopnea, Palpitations, Paroxysmal Noc. Dyspnea Gastrointestinal: No: Abdominal Pain, Constipation, Diarrhea, Hematochezia, Melena, Nausea, Vomiting Genitourinary: Frequency Musculoskeletal: No: arm pain, back pain, foot pain, hand pain, leg pain, neck pain, other, shoulder pain Neurological: No: Change in speech, Confusion, Incoordination, Numbness, Other , Seizures, Weakness Objective Exam Vital Signs Date Time Temp Pulse Resp B/P (MAP) Pulse Ox O2 Delivery O2 Flow Rate FiO2 05/08/17 08:00 99.8 96 20 151/69 95 Room Air 05/08/17 04:00 97.8 77 16 113/73 95 NIV CPAP 05/08/17 00:00 98.3 77 20 105/63 96 NIV CPAP 05/07/17 21:00 99.3 05/07/17 19:53 99.5 96 20 103/61 92 Room Air 05/07/17 17:57 99.5 05/07/17 17:00 100.0 05/07/17 16:33 100.9 05/07/17 16:00 101.1 102 19 125/71 93 Room Air 05/07/17 12:13 100.7 85 18 118/73 90 Room Air 05/07/17 10:30 Room Air 05/07/17 10:10 99.7 64 20 150/82 91 Room Air 05/07/17 09:20 68 16 99 I & O 05/08/17 07:00 Intake Total 1885 ml Output Total 800 ml Balance 1085 ml Capillary Refill : Less Than 3 Seconds General Appearance: No Apparent Distress HEENT: Normal ENT Inspection Neck: Normal Inspection, Supple Respiratory: Lungs Clear Cardiovascular: Irregularly Irregular Gastrointestinal: non tender, soft Extremity: Normal Inspection Neurologic/Psychiatric: Alert, Oriented x3 Skin: Normal Color, Warm/Dry Results Lab Laboratory Tests 05/08/17 05:20: White Blood Count 12.4H, Red Blood Count 4.24L, Hemoglobin 12.7L, Hematocrit 39L , Mean Corpuscular Volume 91, Mean Corpuscular Hemoglobin 30, Mean Corpuscular Hemoglobin Concent 33, Red Cell Distribution Width 13.4, Platelet Count 133, Mean Platelet Volume 10.1, Neutrophils (%) (Auto) 85H, Lymphocytes (%) (Auto) 5L , Monocytes (%) (Auto) 9, Eosinophils (%) (Auto) 1, Basophils (%) (Auto) 0, Neutrophils # (Auto) 10.5H, Lymphocytes # (Auto) 0.6L, Monocytes # (Auto) 1.2H, Eosinophils # (Auto) 0.1, Basophils # (Auto) 0.0, Sodium Level 137, Potassium Level 3.9, Chloride Level 104, Carbon Dioxide Level 22, Anion Gap 11, Blood Urea Nitrogen 21H, Creatinine 1.29, Estimat Glomerular Filtration Rate 53, BUN/ Creatinine Ratio 16, Glucose Level 94, Calcium Level 8.7, Total Bilirubin 2.8H, Aspartate Amino Transf (AST/SGOT) 20, Alanine Aminotransferase (ALT/SGPT) 19, Alkaline Phosphatase 102, Total Protein 5.9L, Albumin 3.2 Microbiology 05/07/17 Urine Culture - Preliminary, Resulted Gram Negative David Probable Enterococcus Species Assessment/Plan Assessment/Plan Assess & Plan/Chief Complaint gentleman with gallstones and elevated bilirubin. Possible choledocholithiasis with early cholangitis to be considered. UTI, cultures pending. Reasonable to continue IV antibiotics and repeat his liver function tests in the morning. Should bilirubin returned to normal, he would undergo cholecystectomy; otherwise, endoscopic ultrasound plus or minus ERCP would be performed first. enterococcus UTI. On antibiotics. Gallstones with elevated bilirubin. I discussed the role of endoscopic ultrasound and preoperative ERCP with Dr. Farrukh Lockhart, one of the gastroenterologists in this area. He feels that it'll be reasonable to proceed with cholecystectomy and cholangiogram first. Should stones be discovered intraoperatively, he will be referred for therapeutic ERCP. Final Diagnosis gallstones. Elevated bilirubin. Urinary tract infection. Clinical Quality Measures DVT/VTE Risk/Contraindication: VTE Present on Admission: No Risk Factor Score Per Nursin RFS Level Per Nursing on Admit: 4+=Very High ABDULAZIZ BREWER MD May 08, 2017 8:53 am
[2017-05-08] MEDS ORDERED: cefTRIAXone INJECTION 1,000 MG in NS (IVPB) 50 ML IV SCH (09:00)
[2017-05-08] MEDS: PANTOPRAZOLE 40 MG/10 ML (PROTONIX) VIAL IV SCH (09:49)
[2017-05-08] MEDS: LACTOBACILLUS Acidoph/Bulgar (LACTINEX/FLORANEX) TAB PO SCH ×2 (11:26→15:22)
[2017-05-08 12:00] VITALS: BP 132/75
[2017-05-08] MEDS: KETOROLAC 15 MG/ML VIAL IVP PRN ×2 (13:49→20:20)
[2017-05-08] MEDS: fentaNYL INJECTION 100 MCG/2 ML AMP IVP PRN (14:38)
[2017-05-08 16:00] VITALS: BP 111/74
[2017-05-08] MEDS: ALFUZOSIN HCL 10 MG TAB (UROXATRAL) PO SCH (17:30)
[2017-05-08] MEDS: ENOXAPARIN 40 MG/0.4 ML (LOVENOX) SYR SC SCH (17:30)
[2017-05-08 20:00] VITALS: BP 110/67
[2017-05-08] MEDS: SIMvastatin 40 MG (ZOCOR) TAB PO SCH (20:21)
[2017-05-08] MEDS: FINASTERIDE (PROSCAR) 5 MG TAB PO SCH (20:21)
[2017-05-08] MEDS: GABAPENTIN 300 MG (NEURONTIN) CAP PO SCH (20:21)
[2017-05-09] VITALS (7 sets, daily range): BP systolic 110–172; BP diastolic 62–98
[2017-05-09] MEDS: NS IV 1000 ML 1,000 ML IV SCH ×3 (02:15→16:27)
[2017-05-09 05:43] LABS: MEAN PLATELET VOLUME 9.7 FL (7.4-10.4); RED BLOOD COUNT 4.32 10^6/uL (4.35-5.85); RED CELL DISTRIBUTION WIDTH 13.6 % (10.0-14.5); WHITE BLOOD COUNT 11.2 10^3/uL (4.3-11.0)
[2017-05-09 06:04] LABS: ALBUMIN 3.4 GM/DL (3.2-4.5); BILIRUBIN,TOTAL 2.9 MG/DL (0.1-1.0); CALCIUM 8.8 MG/DL (8.5-10.1); CREATININE SERUM 1.32 MG/DL (0.60-1.30); POTASSIUM 3.3 MMOL/L (3.6-5.0); TOTAL PROTEIN 6.6 GM/DL (6.4-8.2)
[2017-05-09] MEDS: LACTOBACILLUS Acidoph/Bulgar (LACTINEX/FLORANEX) TAB PO SCH ×3 (06:33→16:27)
[2017-05-09] MEDS: PIPERACILLIN SODIUM/TAZOBACTAM 4.5 GM in NS (IVPB) 100 ML IV SCH ×3 (07:41→23:07)
[2017-05-09] MEDS ORDERED: metroNIDAZOLE 500MG/100ML IVPB 100 ML IV NR (08:00)
[2017-05-09] MEDS ORDERED: ceFAZolin INJECTION 1,000 MG in NS (IVPB) 50 ML IV NR (08:00)
[2017-05-09] MEDS: PANTOPRAZOLE 40 MG/10 ML (PROTONIX) VIAL IV SCH (08:30)
--- NOTE | 2017-05-09 08:36 | Progress Note (SOAP) ---
Subjective Date Seen by Provider: May 09, 2017 Time Seen by Provider: 08:30 Subjective/Events-last exam PT REPORTS THAT HE IS STILL FEEING QUITE A BIT OF DISCOMFORT IN HIS ABDOMEN, BUT IT IS BETTER SINCE HE HAS NOT EATEN SINCE MIDNIGHT. HE REPORTS NO CHEST PAIN, NO SHORTNESS OF BREATH, NO DIZZINESS, NO HEADACHES, NO SENSATION OF FEVER. Review of Systems General: Fatigue HEENT: No Head Aches, No Dysphasia, No Sore Throat Pulmonary: No Dyspnea, No Cough Cardiovascular: No: Chest Pain, Edema Gastrointestinal: Abdominal Pain, No: Nausea Genitourinary: No Dysuria Musculoskeletal: No: back pain Neurological: Weakness, No: Confusion Objective Exam Vital Signs Date Time Temp Pulse Resp B/P (MAP) Pulse Ox O2 Delivery O2 Flow Rate FiO2 05/09/17 04:00 97.6 76 24 121/73 96 Room Air 05/09/17 00:00 98.0 68 20 110/66 93 NIV CPAP 05/08/17 20:20 101.2 05/08/17 20:00 101.2 89 20 110/67 94 Room Air 05/08/17 16:40 99.1 05/08/17 16:00 100.0 96 19 111/74 93 Room Air 05/08/17 15:25 100.0 05/08/17 13:49 100.9 05/08/17 12:00 99.7 90 24 132/75 96 Room Air I & O 05/09/17 07:00 Intake Total 3790 ml Output Total 150 ml Balance 3640 ml Capillary Refill : Less Than 3 Seconds General Appearance: No Apparent Distress, WD/WN HEENT: PERRL/EOMI, Pharynx Normal Neck: Full Range of Motion, Supple Respiratory: Chest Non Tender, Lungs Clear, Normal Breath Sounds Cardiovascular: Regular Rate, Rhythm Gastrointestinal: normal bowel sounds, soft, tenderness (OVER EPIGASTRIUM) Extremity: Normal Capillary Refill, No Calf Tenderness, No Pedal Edema Neurologic/Psychiatric: Alert, Oriented x3, No Motor/Sensory Deficits, Normal Mood/Affect Skin: Warm/Dry Lymphatic: No Adenopathy Results Lab Laboratory Tests 05/09/17 05:19: White Blood Count 11.2H, Red Blood Count 4.32L, Hemoglobin 12.8L, Hematocrit 39L , Mean Corpuscular Volume 90, Mean Corpuscular Hemoglobin 30, Mean Corpuscular Hemoglobin Concent 33, Red Cell Distribution Width 13.6, Platelet Count 164, Mean Platelet Volume 9.7, Sodium Level 137, Potassium Level 3.3L, Chloride Level 106, Carbon Dioxide Level 20L, Anion Gap 11, Blood Urea Nitrogen 28H, Creatinine 1.32H, Estimat Glomerular Filtration Rate 52, BUN/Creatinine Ratio 21 , Glucose Level 103, Calcium Level 8.8, Total Bilirubin 2.9H, Aspartate Amino Transf (AST/SGOT) 27, Alanine Aminotransferase (ALT/SGPT) 24, Alkaline Phosphatase 141H, Total Protein 6.6, Albumin 3.4 Microbiology 05/07/17 Blood Culture - Preliminary, Resulted No growth 05/07/17 Urine Culture - Final, Complete Escherichia Coli Enterococcus Faecalis Assessment/Plan Assessment/Plan Assess & Plan/Chief Complaint ACUTE CHOLECYSTITIS CHOLELITHIASIS HYPERBILIRUBINEMIA URINARY TRACT INFECTION - ENTEROCOCCAL AND ECOLI ELEVATED CRP LEUKOCYTOSIS HYPERTENSION HYPERLIPIDEMIA ATRIAL FIBRILLATION 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 BREWER - PLAN FOR HOLDING XARELTO X 48 HOURS, WAIT ON BILIRUBIN LEVELS, DR. BREWER HAS DISCUSSED WITH GI SPECIALIST - WITH IMPROVED BILIRUBIN LEVEL TODAY, THE PLAN IS TO GO FORWARD WITH SURGERY FOR CHOLECYSTECTOMY AND INTRAOPERATIVE CHOLANGIOGRAM TODAY (Sunday05/09/17). ENTEROCOCCAL AND ECOLI URINARY TRACT INFECTION - ON ZOSYN AND ADD LEVAQUIN ELEVATED CRP AND LEUKOCYTOSIS DUE TO ACUTE CHOLELITHIASIS AND UTI - IMPROVED WHITE COUNT. HYPERTENSION - CONTINUE WITH METOPROLOL HYPERLIPIDEMIA - CONTINUE STATIN ATRIAL FIBRILLATION - HOLD XARELTO - CONTINUE WITH LOVENOX, RESTART XARELTO DAY AFTER SURGERY. CHRONIC ANTICOAGULANT USE (NOAC USE - XARELTO) - HOLD WHILE PLANNING ON SURGERY - RESTART DAY AFTER SURGERY. GI PROPHYLAXIS - PPI DVT PROPHYLAXIS - LOVENOX, SCD'S Clinical Quality Measures DVT/VTE Risk/Contraindication: VTE Present on Admission: No Risk Factor Score Per Nursin RFS Level Per Nursing on Admit: 4+=Very High TEQUILA WEBSTER MD May 09, 2017 08:36
[2017-05-09] MEDS ORDERED: LEVOFLOXACIN 500 MG/100 ML IV 100 ML IV NR (09:00)
--- NOTE | 2017-05-09 09:01 | Progress Note-Pre Operative ---
Pre-Operative Progress Note H&P Reviewed The H&P was reviewed, patient examined and no changes noted. Date Seen by Provider: May 08, 2017 Time Seen by Provider: 08:12 Date H&P Reviewed: May 09, 2017 Time H&P Reviewed: 09:01 Pre-Operative Diagnosis: gallstones with elevated liver enzymes ABDULAZIZ BREWER MD May 09, 2017 9:01 am
[2017-05-09] MEDS ORDERED: BUP/EPI 0.5% 1:200,000 (MARCAINE) 10ML VIAL IJ ONE ×2 (09:15→10:59)
[2017-05-09] MEDS ORDERED: ROCURONIUM 50 MG/5 ML (ZEMURON) VIAL IV ONE (10:24)
[2017-05-09] MEDS ORDERED: LIDOCAINE JELLY 2% (XYLOCAINE) 5 ML TUBE ONE (10:24)
[2017-05-09] MEDS ORDERED: LIDOCAINE PF 2% 5 ML (XYLOCAINE) VIAL ONE (10:24)
[2017-05-09] MEDS ORDERED: LACTATED RINGERS 1,000 ML IV ONE ×2 (10:24→11:14)
[2017-05-09] MEDS ORDERED: proPOfol 200 MG/20 ML (DIPRIVAN) VIAL IV ONE (10:24)
[2017-05-09] MEDS ORDERED: ONDANSETRON 4 MG/2 ML (SDV) Z0FRAN ONE ×2 (10:24→13:08)
[2017-05-09] MEDS ORDERED: MIDAZOLAM 2 MG/2 ML (VERSED) VIAL ONE (10:25)
[2017-05-09] MEDS: LACTATED RINGERS 1,000 ML IV PRN ×2 (10:25→11:32)
[2017-05-09] MEDS ORDERED: fentaNYL INJECTION 100 MCG/2 ML AMP ONE ×2 (10:26→11:01)
[2017-05-09] MEDS ORDERED: LABETALOL HCL 20 MG/4 ML VIAL ONE (11:07)
[2017-05-09] MEDS ORDERED: ISOFLURANE (FORANE) 15 ML/15 MIN INHALATION ONE ×2 (12:18→12:26)
[2017-05-09] MEDS ORDERED: NEOSTIGMINE (BLOXIVERZ ) 1 MG/1ML 10 ML VIAL ONE (12:32)
[2017-05-09] MEDS ORDERED: morphine INJ 10 MG/ML 1ML (SYR OR VIAL) ONE (12:32)
[2017-05-09] MEDS ORDERED: GLYCOPYRROLATE 0.2 MG/ML (ROBINUL) 2 ML VIAL ONE (12:32)
[2017-05-09] MEDS: meTOprolol TARTRATE 50 MG (LOPRESSOR) TAB PO SCH ×2 (12:49→20:01)
[2017-05-09] MEDS: BETHANECHOL 25 MG (URECHOLINE) TAB PO SCH ×4 (12:50→20:01)
[2017-05-09] MEDS: ACETAMINOPHEN 325 MG TABLET/CAPLET (TYLENOL) PO SCH ×2 (12:50→20:01)
[2017-05-09] MEDS ORDERED: MEPERIDINE (DEMEROL) INJ 50 MG/ML IVP PRN (13:00)
[2017-05-09] MEDS ORDERED: ONDANSETRON 4 MG/2 ML (SDV) Z0FRAN IVP PRN (13:00)
[2017-05-09] MEDS: morphine INJ 10 MG/ML 1ML (SYR OR VIAL) IVP PRN ×2 (13:18→13:23)
--- NOTE | 2017-05-09 14:39 | Operative Report ---
Operative Report Date of Procedure/Surgery May 09, 2017 Surgeon (s) ABDULAZIZ BREWER MD Title Searcher (s): not applicable Post-Operative Diagnosis gangrenous cholecystitis with a phlegmon Procedure Performed robotic-assisted cholecystectomy Description of Procedure Anesthesia Type: General Estimated blood loss (mL): 400 mL Specimen(s) collected/removed gangrenous gallbladder Description of the Procedure Indication for procedure: This gentleman has been admitted with a combination of enterococcus UTI and gallstones. With regard to the latter, he was offered cholecystectomy with minimally invasive technique and robotic assistance, combined possibly with cholangiogram and depending on the anatomic features. It is notable that his bilirubin was elevated with a tendency to improve. Informed consent was obtained after reviewing the operative details and complications of postoperative bile leak, bleeding due to the use of coagulants and the potential for postoperative ERCP. Description of the procedure: He was placed supine on the operative table and general anesthesia induced using an endotracheal tube. Ancef and Flagyl were administered intravenously as prophylaxis against wound infection. Abdomen was prepared and draped in the usual sterile manner. Due to previous surgery around his umbilicus, I elected to establish pneumoperitoneum using a Veress needle introduced over the left subcostal margin. Intra-abdominal pressure was maintained at 15 mmHg, using carbon dioxide insufflation. A 5 mm trocar was placed and anatomy visualized using a 30, conventional laparoscope. Omentum was adherent to the undersurface of the mesh, that had been used for hernia repair. Under direct view, I placed an 8 mm trocar over the left-sided abdomen and took down the omental adhesions. Subsequently, I was able to place a 12 mm trocar inferior to the umbilicus to facilitate using the robotic dimensional camera. An additional 8 mm trocar was placed over the right side of abdomen and the patient turned in the reverse Trendelenburg position. The robotic system was docked in place. Laparoscopic survey confirmed a phlegmon over the right subhepatic region. By gentle blunt dissection, I was able to displace the omentum and revealed an acutely gangrenous gallbladder. It was decompressed to facilitate dissection. Turbid bile was encountered. By a combination of blunt and sharp dissection, the neck of the gallbladder was isolated leading to the cystic duct. Thickened tissue around this region was controlled using the vessel sealing device. Cystic duct was rather sharp and controlled using locking clips. Cystic artery itself was thrombosed and managed using the vessel sealing device. Cholecystectomy was completed using a combination of cautery and the vessel sealer gallbladder was then placed in an Endo Catch bag and removed via the subumbilical trocar site. The fascia over this incision had to be extended to the right lateral side, to facilitate retrieving the large gallbladder. A 15 Swiss Marcelino-Reina drain was left in the subhepatic space, in anticipation of bile leak. It was secured with 2-0 silk sutures. The fascia over the subumbilical incision was closed using #1 Vicryl. Skin incisions were closed using 4-0 Vicryl, in a subcuticular fashion. 0.25 percent Marcaine with epinephrine was infiltrated along the incisions, both pre-preemptively and at the conclusion of the operation. He tolerated the procedure well, was extubated in the operating room and taken to the recovery room in a stable condition Findings of the Procedure see operative report Allergies and Home Medications Allergies Coded Allergies: NKANo Known Allergies (Verified Allergy, Unknown, 05/07/17) Home Medications Acetaminophen 325 Mg Tablet, 650 MG PO BID, (Reported) TAKES 2 (325MG) TABLETS Aspirin 81 Mg Tablet.dr, 162 MG PO DAILY, (Reported) TAKES 2 (81MG) TABLETS Bethanechol Chloride 25 Mg Tablet, 25 MG PO QID, (Reported) Fenofibrate 54 Mg Tablet, 54 MG PO HS, (Reported) Finasteride 5 Mg Tablet, 5 MG PO HS, (Reported) Gabapentin 300 Mg Capsule, 300 MG PO HS, (Reported) Hydrochlorothiazide 12.5 Mg Capsule, 12.5 MG PO DAILY, (Reported) Metoprolol Tartrate 100 Mg Tablet, 100 MG PO BID, (Reported) Rivaroxaban 20 Mg Tablet, 20 MG PO HS, (Reported) Simvastatin 40 Mg Tablet, 40 MG PO HS, (Reported) Tamsulosin HCl 0.4 Mg Cap.er.24h, 0.4 MG PO DAILY, (Reported) Vit C/Vit E/Lutein/Min/[place]-3 1 Each Capsule, 1 CAP PO DAILY, (Reported) [Arithrimend] , 2 TAB PO DAILY, (Reported) [Seble Reyna's Vit] , 1 TAB PO HS, (Reported) ABDULAZIZ BREWER MD May 09, 2017 2:39 pm
[2017-05-09] MEDS: ENOXAPARIN 40 MG/0.4 ML (LOVENOX) SYR SC SCH (17:35)
[2017-05-09] MEDS: ALFUZOSIN HCL 10 MG TAB (UROXATRAL) PO SCH (17:35)
[2017-05-09] MEDS: GABAPENTIN 300 MG (NEURONTIN) CAP PO SCH (20:01)
[2017-05-09] MEDS: FINASTERIDE (PROSCAR) 5 MG TAB PO SCH (20:01)
[2017-05-09] MEDS: KETOROLAC 15 MG/ML VIAL IVP PRN (20:01)
[2017-05-09] MEDS: SIMvastatin 40 MG (ZOCOR) TAB PO SCH (20:01)
[2017-05-10] MEDS: NS IV 1000 ML 1,000 ML IV SCH (01:36)
[2017-05-10] MEDS: KETOROLAC 15 MG/ML VIAL IVP PRN (02:07)
[2017-05-10 04:18] VITALS: BP 108/72
[2017-05-10] MEDS: LACTOBACILLUS Acidoph/Bulgar (LACTINEX/FLORANEX) TAB PO SCH ×3 (05:34→16:40)
[2017-05-10 06:20] LABS: MEAN PLATELET VOLUME 9.7 FL (7.4-10.4); RED BLOOD COUNT 3.7 10^6/uL (4.35-5.85); RED CELL DISTRIBUTION WIDTH 13.7 % (10.0-14.5); WHITE BLOOD COUNT 6.5 10^3/uL (4.3-11.0)
[2017-05-10 06:39] LABS: ALANINE AMINOTRANSFERASE 30 U/L (0-55); ALBUMIN 2.9 GM/DL (3.2-4.5); ANION GAP 10 MMOL/L (5-14); ASPARTATE AMINO TRANSFERASE 46 U/L (5-34); BILIRUBIN,TOTAL 2.3 MG/DL (0.1-1.0); BLOOD UREA NITROGEN 26 MG/DL (7-18); BUN/CREATININE RATIO 25; CALCIUM 8.5 MG/DL (8.5-10.1); CARBON DIOXIDE 19 MMOL/L (21-32); CHLORIDE 109 MMOL/L (98-107); CREATININE SERUM 1.05 MG/DL (0.60-1.30); GFR ESTIMATED > 60; GLUCOSE 96 MG/DL (70-105); SODIUM 138 MMOL/L (135-145); TOTAL PROTEIN 5.5 GM/DL (6.4-8.2)
[2017-05-10 08:00] VITALS: BP 123/71
[2017-05-10] MEDS: meTOprolol TARTRATE 50 MG (LOPRESSOR) TAB PO SCH ×2 (08:03→20:09)
[2017-05-10] MEDS: BETHANECHOL 25 MG (URECHOLINE) TAB PO SCH ×4 (08:03→20:09)
[2017-05-10] MEDS: ACETAMINOPHEN 325 MG TABLET/CAPLET (TYLENOL) PO SCH ×2 (08:03→20:08)
[2017-05-10] MEDS: PIPERACILLIN SODIUM/TAZOBACTAM 4.5 GM in NS (IVPB) 100 ML IV SCH ×2 (08:25→16:40)
[2017-05-10] MEDS: PANTOPRAZOLE 40 MG (PROTONIX) TAB PO SCH (08:25)
--- NOTE | 2017-05-10 08:56 | Progress Note (SOAP) ---
Subjective Date Seen by Provider: May 10, 2017 Time Seen by Provider: 08:56 Subjective/Events-last exam PT STATES THAT HE IS FEELING A LITTLE BETTER. HE STATES THAT HIS PAIN IS IMPROVED. HE REPORTS THAT HIS NAUSEA IS BETTER, HIS ABDOMINAL PAIN IS BETTER OVERALL. Review of Systems General: No Chills, Fatigue HEENT: No Head Aches Pulmonary: No Dyspnea, Cough Cardiovascular: No: Chest Pain Gastrointestinal: Abdominal Pain, No: Nausea Genitourinary: No Dysuria Neurological: Weakness Objective Exam Vital Signs Date Time Temp Pulse Resp B/P (MAP) Pulse Ox O2 Delivery O2 Flow Rate FiO2 05/10/17 08:00 94 Room Air 05/10/17 08:00 98.1 93 20 123/71 94 Room Air 05/10/17 04:18 98.6 77 16 108/72 94 NIV CPAP 05/09/17 23:03 96.2 86 16 110/62 96 NIV CPAP 05/09/17 22:03 97.4 90 05/09/17 21:00 96 Nasal Cannula 3.00 05/09/17 20:44 100.1 103 05/09/17 20:43 100.1 05/09/17 20:43 100.1 05/09/17 20:01 101.7 05/09/17 19:42 101.7 108 20 155/88 96 Nasal Cannula 3.00 05/09/17 15:44 Nasal Cannula 3.00 05/09/17 15:39 100.0 113 19 115/84 96 Room Air 05/09/17 13:55 98.9 106 20 172/98 97 Room Air I & O 05/10/17 07:00 Intake Total 3750 ml Output Total 550 ml Balance 3200 ml Capillary Refill : Less Than 3 Seconds General Appearance: No Apparent Distress, WD/WN HEENT: PERRL/EOMI, Pharynx Normal Neck: Full Range of Motion, Supple Respiratory: Chest Non Tender, Lungs Clear, Normal Breath Sounds Cardiovascular: Regular Rate, Rhythm Gastrointestinal: soft, other (FAINT BOWEL SOUNDS) Extremity: No Pedal Edema Neurologic/Psychiatric: Alert, Oriented x3, No Motor/Sensory Deficits, Normal Mood/Affect Skin: Warm/Dry Lymphatic: No Adenopathy Results Lab Laboratory Tests 05/10/17 05:18: White Blood Count 6.5, Red Blood Count 3.70L, Hemoglobin 10.9L, Hematocrit 34L, Mean Corpuscular Volume 91, Mean Corpuscular Hemoglobin 30, Mean Corpuscular Hemoglobin Concent 32, Red Cell Distribution Width 13.7, Platelet Count 167, Mean Platelet Volume 9.7, Sodium Level 138, Potassium Level 4.0, Chloride Level 109H, Carbon Dioxide Level 19L, Anion Gap 10, Blood Urea Nitrogen 26H, Creatinine 1.05, Estimat Glomerular Filtration Rate > 60, BUN/Creatinine Ratio 25, Glucose Level 96, Calcium Level 8.5, Total Bilirubin 2.3H, Aspartate Amino Transf (AST/SGOT) 46H, Alanine Aminotransferase (ALT/SGPT) 30, Alkaline Phosphatase 109, Total Protein 5.5L, Albumin 2.9L Microbiology 05/07/17 Blood Culture - Preliminary, Resulted No growth 05/08/17 MRSA Screen - Final, Complete MRSA not isolated 05/07/17 Urine Culture - Final, Complete Escherichia Coli Enterococcus Faecalis Assessment/Plan Assessment/Plan Assess & Plan/Chief Complaint ACUTE CHOLECYSTITIS CHOLELITHIASIS HYPERBILIRUBINEMIA URINARY TRACT INFECTION - ENTEROCOCCAL AND ECOLI ELEVATED CRP LEUKOCYTOSIS HYPERTENSION HYPERLIPIDEMIA ATRIAL FIBRILLATION 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 BREWER - PLAN FOR HOLDING XARELTO X 48 HOURS, WAIT ON BILIRUBIN LEVELS, DR. BREWER HAS DISCUSSED WITH GI SPECIALIST - WITH IMPROVED BILIRUBIN LEVEL POST OP DAY #1. ENTEROCOCCAL AND ECOLI URINARY TRACT INFECTION - ON ZOSYN ELEVATED CRP AND LEUKOCYTOSIS DUE TO ACUTE CHOLELITHIASIS AND UTI - IMPROVED WHITE COUNT. HYPERTENSION - CONTINUE WITH METOPROLOL HYPERLIPIDEMIA - CONTINUE STATIN ATRIAL FIBRILLATION - HOLD XARELTO - CONTINUE WITH LOVENOX, RESTART XARELTO. CHRONIC ANTICOAGULANT USE (NOAC USE - XARELTO) - RESTART ON 05/11/17 GI PROPHYLAXIS - PPI DVT PROPHYLAXIS - LOVENOX, SCD'S Clinical Quality Measures DVT/VTE Risk/Contraindication: VTE Present on Admission: No Risk Factor Score Per Nursin RFS Level Per Nursing on Admit: 4+=Very High TEQUILA WEBSTER MD May 10, 2017 08:56
[2017-05-10] MEDS ORDERED: LEVOFLOXACIN 250 MG/50 ML IVPB 50 ML IV SCH (09:00)
--- NOTE | 2017-05-10 09:58 | Progress Note-Standard ---
Standard Progress Note Progress Notes/Assess & Plan Date Seen by Provider: May 10, 2017 Time Seen by Provider: 09:21 Progress/Assessment & Plan doing well. No bile in the drain. LFTs improving. Minimal postoperative tenderness along the incisions. Possible discharge tomorrow with drain in place. Final Diagnosis Escherichia coli urinary infection. Gangrenous cholecystitis ABDULAZIZ BREWER MD May 10, 2017 9:58 am
[2017-05-10] MEDS ORDERED: LEVOFLOXACIN 250 MG TAB (LEVAQUIN) PO SCH (11:00)
[2017-05-10 12:00] VITALS: BP 137/93
--- NOTE | 2017-05-10 13:22 | Anesthesia-General Post-Op ---
General Patient Condition Mental Status/LOC: Same as Preop Cardiovascular: Satisfactory Nausea/Vomiting: Absent Respiratory: Satisfactory Pain: Controlled Complications: Absent Post Op Complications Complications None Follow Up Care/Instructions Patient Instructions None needed. Anesthesia/Patient Condition Patient Condition Patient is doing well, no complaints, stable vital signs, no apparent adverse anesthesia problems. No complications reported per nursing. FRANTZ STOREY CRNA May 10, 2017 13:22
[2017-05-10 15:35] VITALS: BP 151/89
[2017-05-10] MEDS: ENOXAPARIN 40 MG/0.4 ML (LOVENOX) SYR SC SCH (17:50)
[2017-05-10] MEDS: ALFUZOSIN HCL 10 MG TAB (UROXATRAL) PO SCH (17:50)
[2017-05-10 19:42] VITALS: BP 132/81
[2017-05-10] MEDS: GABAPENTIN 300 MG (NEURONTIN) CAP PO SCH (20:08)
[2017-05-10] MEDS: SIMvastatin 40 MG (ZOCOR) TAB PO SCH (20:09)
[2017-05-10] MEDS: FINASTERIDE (PROSCAR) 5 MG TAB PO SCH (20:09)
[2017-05-11 00:03] VITALS: BP 135/85
[2017-05-11 04:00] VITALS: BP 138/94
[2017-05-11 05:14] LABS: MEAN PLATELET VOLUME 9.4 FL (7.4-10.4); RED BLOOD COUNT 3.63 10^6/uL (4.35-5.85); RED CELL DISTRIBUTION WIDTH 13.6 % (10.0-14.5); WHITE BLOOD COUNT 6.4 10^3/uL (4.3-11.0)
[2017-05-11 05:45] LABS: ALANINE AMINOTRANSFERASE 34 U/L (0-55); ALBUMIN 2.8 GM/DL (3.2-4.5); ANION GAP 9 MMOL/L (5-14); ASPARTATE AMINO TRANSFERASE 39 U/L (5-34); BILIRUBIN,TOTAL 1.4 MG/DL (0.1-1.0); BLOOD UREA NITROGEN 23 MG/DL (7-18); BUN/CREATININE RATIO 24; CALCIUM 8.4 MG/DL (8.5-10.1); CARBON DIOXIDE 20 MMOL/L (21-32); CHLORIDE 111 MMOL/L (98-107); CREATININE SERUM 0.95 MG/DL (0.60-1.30); GFR ESTIMATED > 60; GLUCOSE 91 MG/DL (70-105); SODIUM 140 MMOL/L (135-145); TOTAL PROTEIN 5.5 GM/DL (6.4-8.2)
[2017-05-11] MEDS: LACTOBACILLUS Acidoph/Bulgar (LACTINEX/FLORANEX) TAB PO SCH (06:02)
[2017-05-11] MEDS: PANTOPRAZOLE 40 MG (PROTONIX) TAB PO SCH (06:02)
[2017-05-11 07:36] VITALS: BP 136/81
[2017-05-11] MEDS: BETHANECHOL 25 MG (URECHOLINE) TAB PO SCH (08:20)
[2017-05-11] MEDS: PIPERACILLIN SODIUM/TAZOBACTAM 4.5 GM in NS (IVPB) 100 ML IV SCH ×3 (08:20)
[2017-05-11] MEDS: meTOprolol TARTRATE 50 MG (LOPRESSOR) TAB PO SCH (08:20)
[2017-05-11] MEDS: ACETAMINOPHEN 325 MG TABLET/CAPLET (TYLENOL) PO SCH (08:21)
--- NOTE | 2017-05-11 10:30 | Discharge Summary ---
Diagnosis/Chief Complaint Date of Admission May 07, 2017 at 08:20 Date of Discharge Discharge Date: May 11, 2017 Discharge Time: 1030 Admission Diagnosis Admission Diagnosis ACUTE CHOLECYSTITIS CHOLELITHIASIS HYPERBILIRUBINEMIA URINARY TRACT INFECTION ELEVATED CRP LEUKOCYTOSIS HYPERTENSION HYPERLIPIDEMIA ATRIAL FIBRILLATION CHRONIC ANTICOAGULANT USE (NOAC USE - XARELTO) Discharge Diagnosis ACUTE CHOLECYSTITIS CHOLELITHIASIS HYPERBILIRUBINEMIA URINARY TRACT INFECTION - ENTEROCOCCAL AND ECOLI ELEVATED CRP LEUKOCYTOSIS HYPERTENSION HYPERLIPIDEMIA ATRIAL FIBRILLATION CHRONIC ANTICOAGULANT USE (NOAC USE - XARELTO) Reason Hospital Visit PT IS AN 81 Y/O MALE WHO IS KNOWN TO ME FROM CLINIC. HE REPORTS THAT HE WAS FEELING POORLY ON SUNDAY. HE REPORTS NAUSEA, ABDOMINAL PAIN AND THEN IT STARTED TO IMPROVE, THEN LATE SUNDAY NIGHT, EARLY SUNDAY MORNING HE HAD A RECURRENCE OF HIS ABDOMINAL PAIN, NAUSEA, FEVER. HIS INSISTED ON LETICIA GOING TO THE EMERGENCY DEPARTMENT WHERE HE WAS FOUND TO HAVE ACUTE CHOLELITHIASIS WITH A STONE IN THE NECK OF THE GALLBLADDER, AND AN ACUTE URINARY TRACT INFECTION WITH ELEVATED CRP OF 23 AND WHITE COUNT OF 17, AND ELEVATED BILIRUBIN WELL. Discharge Summary Consultations DR. BREWER Discharge Physical Examination Allergies: Coded Allergies: NKANo Known Allergies (Verified Allergy, Unknown, 05/07/17) Vitals & I&Os Vital Signs Date Time Temp Pulse Resp B/P (MAP) Pulse Ox O2 Delivery O2 Flow Rate FiO2 05/11/17 07:36 99.4 95 20 136/81 93 Room Air 05/09/17 21:00 3.00 General Appearance: Alert, Oriented X3, Cooperative, No Acute Distress HEENT: Atraumatic, PERRLA, Mucous Memb Moist/[place] Respiratory: Clear to Auscultation, Normal Air Movement Cardiovascular: Regular Rate Abdominal: Normal Bowel Sounds, Soft, No Tenderness Extremities: No Clubbing, No Cyanosis Skin: Other (ERYTHEMA AROUND WOUNDS) Neuro: Cranial Nerves 3-12 NL Psych/Mental Status: Mental Status NL, Mood NL Hospital Course ACUTE CHOLECYSTITIS CHOLELITHIASIS HYPERBILIRUBINEMIA URINARY TRACT INFECTION - ENTEROCOCCAL AND ECOLI ELEVATED CRP LEUKOCYTOSIS HYPERTENSION HYPERLIPIDEMIA ATRIAL FIBRILLATION 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 BREWER -POST OP DAY #2 - PLAN TO KEEP IN HOSPITAL FOR CONTINUED IV ANTIBIOTICS AND THERAPY - DISCHARGE TO SWING BED TODAY. ENTEROCOCCAL AND ECOLI URINARY TRACT INFECTION - ON ZOSYN ELEVATED CRP AND LEUKOCYTOSIS DUE TO ACUTE CHOLELITHIASIS AND UTI - IMPROVED WHITE COUNT. HYPERTENSION - CONTINUE WITH METOPROLOL HYPERLIPIDEMIA - CONTINUE STATIN ATRIAL FIBRILLATION - HOLD XARELTO - CONTINUE WITH LOVENOX, RESTART XARELTO. CHRONIC ANTICOAGULANT USE (NOAC USE - XARELTO) - RESTART ON 05/11/17 GI PROPHYLAXIS - PPI DVT PROPHYLAXIS - LOVENOX, SCD'S Pending Labs Laboratory Tests 05/11/17 04:50: White Blood Count 6.4, Red Blood Count 3.63, Hemoglobin 10.8, Hematocrit 33, Mean Corpuscular Volume 90, Mean Corpuscular Hemoglobin 30, Mean Corpuscular Hemoglobin Concent 33, Red Cell Distribution Width 13.6, Platelet Count 181, Mean Platelet Volume 9.4, Sodium Level 140, Potassium Level 4.0, Chloride Level 111, Carbon Dioxide Level 20, Anion Gap 9, Blood Urea Nitrogen 23, Creatinine 0.95, Estimat Glomerular Filtration Rate > 60, BUN/Creatinine Ratio 24, Glucose Level 91, Calcium Level 8.4, Total Bilirubin 1.4, Aspartate Amino Transf (AST/ SGOT) 39, Alanine Aminotransferase (ALT/SGPT) 34, Alkaline Phosphatase 132, Total Protein 5.5, Albumin 2.8 Discharge Condition at discharge IMPROVING Instructions to patient/family Please see electonic discharge instructions given to patient. Discharge Medications Reviewed and agree with Discharge Medication list on patient's Discharge Instruction sheet Clinical Quality Measures DVT/VTE Risk/Contraindication: VTE Present on Admission: No Risk Factor Score Per Nursin RFS Level Per Nursing on Admit: 4+=Very High TEQUILA WEBSTER MD May 11, 2017 10:30
== END 2017-05-11 10:13 | disposition swing bed (61) | DRG 418 ==
LOC: EDUNIT# 04:53 → ER 04:56 → 4TH 08:20 → ENPENDDIS 05-11 10:30
PROVIDERS: ADMIT Family Medicine; ATTEND Family Medicine
PROC: 8E0W4CZ Robotic Assisted Procedure of Trunk Region, Percutaneous Endoscopic Approach (ICD-10-PCS; 2017-05-09)
PROC: 0FT44ZZ Resection of Gallbladder, Percutaneous Endoscopic Approach (ICD-10-PCS; principal; 2017-05-09 10:38)
DX: K80.00 Calculus of gallbladder with acute cholecystitis without obstruction (principal); N39.0 Urinary tract infection, site not specified; B95.2 Enterococcus as the cause of diseases classified elsewhere; I48.91 Unspecified atrial fibrillation; K57.90 Diverticulosis of intestine, part unspecified, without perforation or abscess without bleeding; I25.10 Atherosclerotic heart disease of native coronary artery without angina pectoris; I25.2 Old myocardial infarction; G47.30 Sleep apnea, unspecified; N42.9 Disorder of prostate, unspecified; R33.9 Retention of urine, unspecified; R39.11 Hesitancy of micturition; M19.91 Primary osteoarthritis, unspecified site; M54.9 Dorsalgia, unspecified; Z85.038 Personal history of other malignant neoplasm of large intestine; Z87.19 Personal history of other diseases of the digestive system; Z79.01 Long term (current) use of anticoagulants; Z95.5 Presence of coronary angioplasty implant and graft; Z96.612 Presence of left artificial shoulder joint
CPT/HCPCS: 36415; 74177; 76705; 80053; 81000; 83605; 83690; 85007; 85025; 85027; 86141; 87040; 87077; 87081; 87088; 87186; 88304; 94664; 96361; 96374; 96375; 96376

== ENCOUNTER 2017-05-11 10:00 | Inpatient (IN) | payer MEDICARE, OTHER ==
[~2017-05-11] VITALS: Ht 167.6 cm; Wt 101.3 kg
[~2017-05-11 10:00] MED LIST changes: +ASPI-983 PO; +BETH25TA PO; +FINA5TAB6 PO; +GABA-488 PO; +HYDR12.5 PO; +METO100T2 PO; +RIVA20TA PO; +TAMS0.4C2 PO; +VIT1CAPS9 PO; +[UNRECOGNIZED DRUG - OTHER] PO
[2017-05-11] MEDS ORDERED: ONDANSETRON 4 MG/2 ML (SDV) Z0FRAN IVP PRN (10:45)
[2017-05-11] MEDS ORDERED: fentaNYL INJECTION 100 MCG/2 ML AMP IVP PRN (10:45)
[2017-05-11] MEDS ORDERED: PIPERACILLIN SODIUM/TAZOBACTAM 4.5 GM in NS (IVPB) 100 ML IV SCH (10:45)
[2017-05-11] MEDS ORDERED: PROMETHAZINE INJ 25 MG/ML (PHENERGAN) AMP IVP PRN (10:45)
--- NOTE | 2017-05-11 10:47 | History & Physicial ---
History of Present Illness History of Present Illness Reason for visit/HPI PT IS AN 81 Y/O MALE WHO IS KNOWN TO ME FROM CLINIC. HE REPORTS THAT HE WAS FEELING POORLY ON SUNDAY. HE REPORTS NAUSEA, ABDOMINAL PAIN AND THEN IT STARTED TO IMPROVE, THEN LATE SUNDAY NIGHT, EARLY SUNDAY MORNING HE HAD A RECURRENCE OF HIS ABDOMINAL PAIN, NAUSEA, FEVER. HIS INSISTED ON LETICIA GOING TO THE EMERGENCY DEPARTMENT WHERE HE WAS FOUND TO HAVE ACUTE CHOLELITHIASIS WITH A STONE IN THE NECK OF THE GALLBLADDER, AND AN ACUTE URINARY TRACT INFECTION WITH ELEVATED CRP OF 23 AND WHITE COUNT OF 17, AND ELEVATED BILIRUBIN WELL. Date of Admission 05/11/17 Date Seen by Provider: May 11, 2017 Time Seen by Provider: 10:43 I consulted on this patient on 05/11/17 10:42 Attending Physician Mary Ann Duvall MD Admitting Physician Mary Ann Duvall MD Consult Allergies and Home Medications Allergies Coded Allergies: NKANo Known Allergies (Verified Allergy, Unknown, 05/07/17) Home Medications Acetaminophen 325 Mg Tablet, 650 MG PO BID, (Reported) TAKES 2 (325MG) TABLETS Aspirin 81 Mg Tablet.dr, 162 MG PO DAILY, (Reported) TAKES 2 (81MG) TABLETS Bethanechol Chloride 25 Mg Tablet, 25 MG PO QID, (Reported) Fenofibrate 54 Mg Tablet, 54 MG PO HS, (Reported) Finasteride 5 Mg Tablet, 5 MG PO HS, (Reported) Gabapentin 300 Mg Capsule, 300 MG PO HS, (Reported) Hydrochlorothiazide 12.5 Mg Capsule, 12.5 MG PO DAILY, (Reported) Metoprolol Tartrate 100 Mg Tablet, 100 MG PO BID, (Reported) Rivaroxaban 20 Mg Tablet, 20 MG PO HS, (Reported) Simvastatin 40 Mg Tablet, 40 MG PO HS, (Reported) Tamsulosin HCl 0.4 Mg Cap.er.24h, 0.4 MG PO DAILY, (Reported) Vit C/Vit E/Lutein/Min/[place]-3 1 Each Capsule, 1 CAP PO DAILY, (Reported) [Arithrimend] , 2 TAB PO DAILY, (Reported) [Shanika Men's Vit] , 1 TAB PO HS, (Reported) Past Wshyxoq-Gtonuy-Yyamsm Hx Patient Social History Marrital Status: Living Status: LIVES AT HOME WITH SPOUSE Employed/Student: part-time employed ([employer]), retired 2nd Hand Smoke Exposure: No Physical Abuse Screen: No Sexual Abuse: No Recent Foreign Travel: No Contact w/other who traveled: No Recent Hopitalizations: Yes (JULY AT FOOT SURGERY RIGHT FOOT) Recent Infectious Disease Expo: No Immunizations Up To Date Tetanus Booster (TDap): Less than 5yrs Date of Pneumonia Vaccine: Jul 15, 2015 Seasonal Allergies Seasonal Allergies: No Surgeries HX Surgeries: Yes Surgeries: Bowel Surgery, Coronary Stent, Gallbladder, Orthopedic Respiratory Hx Respiratory Disorders: Yes (CPAP at NOC, SOB WITH EXERTION R/T CARDIAC) Cardiovascular Hx Cardiovascular Disorders: Yes Cardiac Disorders: Atrial Fibrillation, Coronary Artery Disease, Heart Attack Neurological Hx Neurological Disorders: No Reproductive System Hx Reproductive Disorders: No Sexually Transmitted Disease: No HIV/AIDS: No Genitourinary Hx Genitourinary Disorders: Yes (urinary retention and "slow" to start) Genitourinary Disorders: Prostate Problems Gastrointestinal Hx Gastrointestinal Disorders: Yes (history of bowel resection from colon cancer. History of colitis.) Gastrointestinal Disorders: Diverticulosis Musculoskeletal Hx Musculoskeletal Disorders: Yes Musculoskeletal Disorders: Arthritis, Back Injury, Chronic Back Pain Endocrine Hx Endocrine Disorders: No HEENT HX ENT Disorders: Yes (bilateral cataracts removed) HEENT Disorders: Cataract Cancer Hx Cancer: Yes (hx of colon resection) Cancer: Colon Psychosocial Hx Psychiatric Problems: No Integumentary HX Skin/Integumentary Disorder: No Blood Transfusions Hx Blood Disorders: No Adverse Reaction to a Blood Tr: No Reviewed Nursing Assessment Reviewed/Agree w Nursing PMH: Yes Family Medical History Significant Family History: Heart Disease, Hypertension Family Hx: ALS (amyotrophic lateral sclerosis) 19 FATHER G8 BROTHER G8 SISTER Alzheimer's disease 19 FATHER FH: Alzheimers disease 19 FATHER Myocardial infarction 19 MOTHER Constitutional: No dizziness, fever, No malaise, No weakness EENTM: No hoarseness, No mouth pain, No mouth swelling, No throat swelling Respiratory: cough, No dyspnea on exertion Cardiovascular: No chest pain, No edema Gastrointestinal: abdominal pain, No constipation, No diarrhea, No nausea Genitourinary: no symptoms reported Skin: other (REDNESS AROUND INCISION SITES) Psychiatric/Neurological: Denies Anxiety All Other Systems Reviewed Negative Unless Noted: Yes Physical Exam Vital Signs Capillary Refill : General Appearance: No Apparent Distress, WD/WN Eyes: Bilateral Eye EOMI, Bilateral Eye Normal Inspection, Bilateral Eye PERRL HEENT: PERRL/EOMI, Pharynx Normal Neck: Full Range of Motion, Supple Respiratory: Chest Non Tender, Lungs Clear, Normal Breath Sounds, No Accessory Muscle Use, No Respiratory Distress Cardiovascular: Regular Rate, Rhythm Gastrointestinal: Normal Bowel Sounds, Soft, Other (TTP OVER INCISION SITES) Rectal: Deferred Back: Normal Inspection, No CVA Tenderness, No Vertebral Tenderness Extremity: Normal Capillary Refill, Non Tender, No Calf Tenderness, No Pedal Edema Neurologic/Psychiatric: Alert, Oriented x3, No Motor/Sensory Deficits, Normal Mood/Affect, community recreation coordinator II-XII Norm as Tested Skin: Erythema (AROUND INCISION SITES) Lymphatic: No Adenopathy Assessment/Plan Assessment and Plan ACUTE CHOLECYSTITIS CHOLELITHIASIS HYPERBILIRUBINEMIA URINARY TRACT INFECTION - ENTEROCOCCAL AND ECOLI ELEVATED CRP LEUKOCYTOSIS HYPERTENSION HYPERLIPIDEMIA ATRIAL FIBRILLATION 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 BREWER - - WITH IMPROVED BILIRUBIN LEVEL POST OP DAY #2 ON 05/11/17. - PATIENT TO START ON SWING BED WITH PHYSICAL THERAPY, REC THERAPY. ENTEROCOCCAL AND ECOLI URINARY TRACT INFECTION - ON ZOSYN ELEVATED CRP AND LEUKOCYTOSIS DUE TO ACUTE CHOLELITHIASIS AND UTI - IMPROVED WHITE COUNT. HYPERTENSION - CONTINUE WITH METOPROLOL HYPERLIPIDEMIA - CONTINUE STATIN ATRIAL FIBRILLATION - RESTART XARELTO. CHRONIC ANTICOAGULANT USE (NOAC USE - XARELTO) - RESTARTED ON 05/11/17 GI PROPHYLAXIS - PPI DVT PROPHYLAXIS - , SCD'S Problems: Admission Diagnosis ACUTE CHOLECYSTITIS CHOLELITHIASIS HYPERBILIRUBINEMIA URINARY TRACT INFECTION - ENTEROCOCCAL AND ECOLI ELEVATED CRP LEUKOCYTOSIS HYPERTENSION HYPERLIPIDEMIA ATRIAL FIBRILLATION CHRONIC ANTICOAGULANT USE (NOAC USE - XARELTO) MARY ANN DUVALL MD May 11, 2017 10:47
--- OUTSIDE RECORDS SUMMARY | 2017-05-11 10:56 | XMS REPORT | Clinical Summary ---
Author Author [facility] Organization [facility] Address Unknown Phone Unavailable Care Team Providers Care Textile Machine Operator Name Role Phone PCP Unavailable Source Comments Some departments are not documenting in the electronic medical record. If you do not see the information that you expected, contact Release of Information in the Health Information Management department at [phone] for further assistance in locating additional records.[facility] Allergies No Known Allergies Current Medications Prescription Sig. [...] C-Vit Take 1 Cap by mouth Active O-Gglgah-Kwh-OM-3 daily. (OCUVITE) [id number] yk-slxq-sp-mg cap MULTIVITAMIN PO Take 1 Tab by [...] 07/10/2016 Traumatic arthritis of right foot 05/18/2016 Social History Tobacco Use Types Packs/Day Years Used Date Never Smoker Smokeless Tobacco: Never Used Alcohol Use Drinks/Week oz/Week Comments No Sex Assigned at Date Recorded Not on file Last Filed Vital Signs Vital Sign Reading Time Taken Blood Pressure 142/95 08/15/2016 11:27 AM DRY CHAIN OFFBEARER Pulse 88 08/15/2016 11:27 AM DRY CHAIN OFFBEARER Temperature 36.3 C (97.4 F) 07/11/2016 11:05 AM CDT Respiratory Rate - - Oxygen Saturation 95% 07/11/2016 11:05 AM CDT Inhaled Oxygen - - Concentration Weight 93 kg (205 lb) 08/29/2016 1:11 PM DRY CHAIN OFFBEARER Height 167.6 cm (5' 6") 08/29/2016 1:11 PM DRY CHAIN OFFBEARER Body Mass Index 33.09 08/29/2016 1:11 PM DRY CHAIN OFFBEARER Plan of Treatment Health Maintenance Due Date Last Done Comments PHYSICAL (COMPREHENSIVE) 1941 EXAM PERTUSSIS VACCINE 1945 TETANUS VACCINE 1951 SHINGLES VACCINE 1994 PREVNAR/PNEUMOVAX (#1) 1999 INFLUENZA VACCINE 06/01/2017 Implants Implanted Type Area Dairy Feed Sales Consultant Device Expiration Model / Identifier Date Serial / Lot Medtronic Pacemaker Bone Screw 3.5mm X 26mm Right: DARCI:DARCI [id number] / Implanted: Qty: 1 on 07/10/2016 by Foot INSTR N/A / Aron Gaines MD N/A Screw Bone T10 3.5 X 30mm Right: DARCI [id number] / Implanted: Qty: 1 on 07/10/2016 by Foot N/A / Aron Gaines MD N/A 4.1x40 Cp Screw Right: DARCI [id number] / Implanted: Qty: 1 on 07/10/2016 by Foot N/A / Aron Gaines MD N/A Midfoot Cp Plate-Short Right: DARCI [id number] / Implanted: Qty: 1 on 07/10/2016 by Foot N/A / Aron Gaines MD N/A Midfoot Cp Plate-Long Right: DARCI [id number] / Implanted: Qty: 1 on 07/10/2016 by Foot N/A / Aron Gaines MD N/A Filler Bone Void 3ml Cancellous Right: [employer] 11/20/2016 ABS-2004-0 Demineralized Bone Matrix Foot 3 / Implanted: Qty: 1 on 07/10/2016 by [id number] Aron Gaines MD 8 / [id number] Graft Bone Augment 3cc Right: [facility] 05/31/2017 [id number] Implanted: Qty: 1 on 07/10/2016 by Foot 0 / Aron Gaines MD [id number] / [id number] Screw Bone 6/7mm 4mm 80mm Acutrak Right: [employer] 10/17/2022 AP- [id number] Titanium .094in Femur Foot GRP:ACUMED / Implanted: Qty: 2 on 07/10/2016 by [id number] / Aron Gaines MD [id number] Screw Locking T10 3.5 X 28mm Right: DARCI [id number] / Implanted: Qty: 1 on 07/10/2016 by Foot N/A / Aron Gaines MD N/A 3.5x26 Locking Screw Right: DARCI [id number] / Implanted: Qty: 2 on 07/10/2016 by Foot N/A / Aron Gaines MD N/A Screw Bone T10 Full Thread 3.5mm / Right: DARCI:DARCI [id number] / L24mm Foot INSTR N/A / Implanted: Qty: 1 on 07/10/2016 by N/A Aron Gaines MD Screw Bone T10 Full Thread 3.5mm / Right: DARCI:DARCI [id number] / L28mm Foot INSTR N/A / Implanted: Qty: 1 on 07/10/2016 by N/A Aron Gaines MD 4.1x36 Cp Screw Right: DARCI [id number] / Implanted: Qty: 1 on 07/10/2016 by Foot N/A / Aron Gaines MD N/A Screw Locking T10 3.5 X 24mm Right: DARCI [id number] / Implanted: Qty: 1 on 07/10/2016 by Foot N/A / Aron Gaines MD N/A Results Not on filefrom Last 3 Months
--- NOTE | 2017-05-11 11:40 | Physical Therapy Evaluation ---
PT Evaluation-General Medical Diagnosis Admission Date May 11, 2017 at 10:14 Medical Diagnosis: cholecystectomy Onset Date: May 04, 2017 Therapy Diagnosis Therapy Diagnosis: impaired mobility, strength, endurance Height/Weight Height (Feet): 5 Height (Inches): 6.00 Weight (Pounds): 223 Weight (Ounces): 5.0 Referral Physician: Mary Ann Duvall MD Reason for Referral: Evaluation/Treatment Medical History Pertinent Medical History: Atrial Fib, Arthritis, CAD, [place] Additional Medical History prostate problems, bowel resection for colon CA, colitis, diverticulosis, back injury, chronic back pain, cataracts, surg (bowel, coronary stent, gallbladder, orthopedic) Current History went to ER with nausea, pain, fever, had acute cholelethiasis and UTI Reviewed History: Yes Social History Current Living Status: Spouse Entry Into Home: Stairs With Railing PT Steps Into Home: 3 Prior/Core FIM Prior Level of Function Functional [place] Measure 0=Not Assessed/NA 4=Minimal Assistance 1=Total Assistance 5=Supervision or Setup 2=Maximal Assistance 6=Modified [place] 3=Moderate Assistance 7=Complete [place] Bed Mobility: 7 Transfers (B,C,W/C) (FIM): 7 Gait: 7 PT Evaluation-Current Subjective Patient in bed pre tx, agrees to PT, has pain of 2/10 in abdomen. Pt/Family Goals Patient in recliner post tx with nurse call, ludivina, in the room. Objective Patient Orientation: Normal For Age Attachments: IV ROM/Strength ROM Lower Extremities WNL Strenght Lower Extremities 4/5 gross bilateral lower extremities Neuromuscular (Tone, Coordination, Reflexes) WNL Sensory Vision: Functional Hearing: Functional Sensation Right Lower Extremit: Intact Sensation Left Lower Extremity: Intact Transfers Functional [place] Measure 0=Not Assessed/NA 4=Minimal Assistance 1=Total Assistance 5=Supervision or Setup 2=Maximal Assistance 6=Modified [place] 3=Moderate Assistance 7=Complete [place] Transfers (B, C, W/C) (FIM): 5 Scootin Rollin Supine to/from Sit: 6 Sit to/from Stand: 5 Sit to Lying (QC): 6 Lying to Sitting/Side of Bed(Q: 6 Sit to Stand (QC): 4 Patient performs bed mobility with mod I, sit to stand with SBA Gait Does the Patient Walk?: Yes Mode of Locomotion: Walk Anticipated Mode of Locomotion: Walk Gait (FIM): 5 Distance: 400' Walk 50 ft with 2 Turns(QC): 4 Walk 150 ft (QC): 4 Gait Level of Assist: 5 Gait Persons Needed: 1 Gait Assistive Device: None Comments/Gait Description Patient can ambulate 400' with only pushing his IV pole with SBA, including 50' with at least 2 turns of 90 degrees. Balance Sitting Static: Normal Sitting Dynamic: Normal Standing Static: Good Standing Dynamic: Good Treatment seated lower extremity exercises x20 (AP, LAQ, hip flexion) Assessment/Needs Patient has impaired mobility, strength, endurance post abdominal surgery. Rehab Potential: Fair PT Care Home Goals Single Stayer Operator Goals PT Care Home Goals Time Frame: May 18, 2017 Transfers (B,C,W/C) (FIM): 6 Sit to Lying (QC): 6 Lying-Sitting on Side/Bed(QC): 6 Sit to Stand (QC): 6 Rollin Chair/Rbr-ql-Hafms Xfer(QC): 6 Gait (FIM): 7 Distance: 500' Walk 50ft with 2 Turns (QC): 6 Walk 150 ft (QC): 6 Gait Assistive Device: None PT Plan Problem List Problem List: Activity Tolerance, Functional Strength, Safety, Balance, Gait, Transfer Treatment/Plan Treatment Plan: Continue Plan of Care Treatment Plan: Bed Mobility, Education, Functional Activity [place], Functional Strength, Gait, Safety, Therapeutic Exercise, Transfers Treatment Duration: May 18, 2017 Frequency: 6 times per week Estimated Hrs Per Day: .25 hour per day (15-30 min) Patient and/or Family Agrees t: Yes Safety Risks/Education Patient Education: Gait Training, Transfer Techniques, Correct Positioning, Safety Issues Teaching Recipient: Patient Teaching Methods: Demonstration, Discussion Response to Teaching: Reinforcement Needed Discharge Recommendations Plan Patient will perform bed mobility and transfer training, balance and endurance training, functional strengthening, stair training, gait training, and education , to improve functional mobility and independence at home. Therapy D/C Recommendations: Home w/ Family Support Time/GCodes Time In: 1115 Time Out: 1145 Total Billed Treatment Time: 30 Total Billed Treatment 1 visit EVL 15' GT 15' KATHERINE SEAY PT May 11, 2017 11:40
--- NOTE | 2017-05-11 11:41 | Progress Note-Standard ---
Standard Progress Note Progress Notes/Assess & Plan Date Seen by Provider: May 11, 2017 Time Seen by Provider: 11:41 Progress/Assessment & Plan continues to improve. Afebrile. Tolerating diet. No bile in the drain. Liver function improving. Final Diagnosis acute gangrenous cholecystitis. Enterococcus and Escherichia coli UTI. ABDULAZIZ BREWER MD May 11, 2017 11:41 am
[2017-05-11] MEDS: LACTOBACILLUS Acidoph/Bulgar (LACTINEX/FLORANEX) TAB PO SCH ×2 (11:44→16:30)
[2017-05-11] MEDS: BETHANECHOL 25 MG (URECHOLINE) TAB PO SCH ×3 (13:22→22:27)
--- NOTE | 2017-05-11 15:58 | Diagnostic Imaging Report ---
INDICATION: Cough. COMPARISON: 08/18/2013. FINDINGS: Trace right pleural effusion. Patchy bibasilar airspace opacities are greater on the left. No pneumothorax. Stable cardiomegaly with left pectoral transvenous pacemaker. Bilateral shoulder arthroplasties are noted. IMPRESSION: 1. Patchy bibasilar airspace opacities are likely due to atelectasis; however, an infectious bronchiolitis could have this appearance. 2. Trace right pleural effusion. Dictated by: Dictated on workstation # [id number]
[2017-05-11] MEDS: PIPERACILLIN SODIUM/TAZOBACTAM 4.5 GM in NS (IVPB) 100 ML IV SCH ×2 (16:32→23:55)
[2017-05-11] MEDS: ALFUZOSIN HCL 10 MG TAB (UROXATRAL) PO SCH (19:21)
[2017-05-11] MEDS: RIVAROXABAN 20 MG TABLET (XARELTO) PO SCH (19:21)
[2017-05-11 22:25] VITALS: BP 150/88
[2017-05-11] MEDS: meTOprolol TARTRATE 50 MG (LOPRESSOR) TAB PO SCH (22:27)
[2017-05-11] MEDS: SIMvastatin 40 MG (ZOCOR) TAB PO SCH (22:27)
[2017-05-11] MEDS: FINASTERIDE (PROSCAR) 5 MG TAB PO SCH (22:27)
[2017-05-11] MEDS: GABAPENTIN 300 MG (NEURONTIN) CAP PO SCH (22:27)
[2017-05-11] MEDS: ACETAMINOPHEN 325 MG TABLET/CAPLET (TYLENOL) PO SCH (22:28)
[2017-05-12 05:25] LABS: RED BLOOD COUNT 3.82 10^6/uL (4.35-5.85); RED CELL DISTRIBUTION WIDTH 13.8 % (10.0-14.5); WHITE BLOOD COUNT 7.5 10^3/uL (4.3-11.0)
[2017-05-12 05:51] LABS: ALANINE AMINOTRANSFERASE 37 U/L (0-55); ALBUMIN 3.1 GM/DL (3.2-4.5); ANION GAP 11 MMOL/L (5-14); ASPARTATE AMINO TRANSFERASE 36 U/L (5-34); BILIRUBIN,TOTAL 1.6 MG/DL (0.1-1.0); BLOOD UREA NITROGEN 18 MG/DL (7-18); BUN/CREATININE RATIO 22; CALCIUM 8.8 MG/DL (8.5-10.1); CARBON DIOXIDE 21 MMOL/L (21-32); CHLORIDE 110 MMOL/L (98-107); CREATININE SERUM 0.81 MG/DL (0.60-1.30); GFR ESTIMATED > 60; GLUCOSE 95 MG/DL (70-105); POTASSIUM 3.8 MMOL/L (3.6-5.0); SODIUM 142 MMOL/L (135-145); TOTAL PROTEIN 5.9 GM/DL (6.4-8.2)
[2017-05-12 06:00] VITALS: BP 160/80
[2017-05-12] MEDS: PANTOPRAZOLE 40 MG (PROTONIX) TAB PO SCH (06:07)
[2017-05-12] MEDS: LACTOBACILLUS Acidoph/Bulgar (LACTINEX/FLORANEX) TAB PO SCH ×3 (06:07→17:29)
[2017-05-12] MEDS: PIPERACILLIN SODIUM/TAZOBACTAM 4.5 GM in NS (IVPB) 100 ML IV SCH ×2 (08:59→17:30)
[2017-05-12] MEDS: BETHANECHOL 25 MG (URECHOLINE) TAB PO SCH ×4 (08:59→21:21)
[2017-05-12] MEDS: meTOprolol TARTRATE 50 MG (LOPRESSOR) TAB PO SCH ×2 (08:59→21:21)
[2017-05-12] MEDS: ACETAMINOPHEN 325 MG TABLET/CAPLET (TYLENOL) PO SCH ×2 (08:59→21:21)
--- NOTE | 2017-05-12 08:59 | Progress Note (SOAP) ---
Subjective Time Seen by Provider: 08:55 Subjective/Events-last exam tingling in his gallbladder. UTI. Patient feeling much better. Patient in atrial fibrillation and has been on xarelta for a long time. Patient voices no complaints Objective Exam Vital Signs Date Time Temp Pulse Resp B/P (MAP) Pulse Ox O2 Delivery O2 Flow Rate FiO2 05/12/17 06:00 97.7 76 18 160/80 96 Room Air 05/11/17 22:25 78 150/88 05/11/17 20:00 Room Air 05/11/17 18:29 18 Room Air I & O 05/12/17 07:00 Intake Total 1600 ml Output Total 18 ml Balance 1582 ml Capillary Refill : General Appearance: No Apparent Distress, WD/WN HEENT: Normal ENT Inspection Neck: Full Range of Motion, Normal Inspection Respiratory: Lungs Clear, Normal Breath Sounds, No Accessory Muscle Use, No Respiratory Distress Cardiovascular: Irregularly Irregular Results Lab Laboratory Tests 05/12/17 04:59: White Blood Count 7.5, Red Blood Count 3.82L, Hemoglobin 11.3L, Hematocrit 35L, Mean Corpuscular Volume 91, Mean Corpuscular Hemoglobin 30, Mean Corpuscular Hemoglobin Concent 32, Red Cell Distribution Width 13.8, Platelet Count 229, Mean Platelet Volume 9.0, Sodium Level 142, Potassium Level 3.8, Chloride Level 110H, Carbon Dioxide Level 21, Anion Gap 11, Blood Urea Nitrogen 18, Creatinine 0.81, Estimat Glomerular Filtration Rate > 60, BUN/Creatinine Ratio 22, Glucose Level 95, Calcium Level 8.8, Total Bilirubin 1.6H, Aspartate Amino Transf (AST/ SGOT) 36H, Alanine Aminotransferase (ALT/SGPT) 37, Alkaline Phosphatase 163H, Total Protein 5.9L, Albumin 3.1L Assessment/Plan Assessment/Plan Assess & Plan/Chief Complaint gangrenous gallbladder. Atrial fibrillation.. Atelectasis versus bronchiolitis LAI WALKER DO May 12, 2017 08:59
--- NOTE | 2017-05-12 11:29 | Physical Therapy Daily Note ---
PT Daily Note-Current Subjective Pt. states he is doing well and expects to go home Mon. No pain, but not sleeping well here at the hospital Pain Numeric Pain Scale: 0-No Pain Mental Status Patient Orientation: Normal For Age Transfers Functional Price Measure 0=Not Assessed/NA 4=Minimal Assistance 1=Total Assistance 5=Supervision or Setup 2=Maximal Assistance 6=Modified [place] 3=Moderate Assistance 7=Complete IndependenceIRFPAI Quality Coding Scale 6 Independent with activity with or without an assistive device 5 Patient requires set up or clean up by helper. Patient completes activity by themselves 4 Supervision or touching assist (CGA). [place] provide cues , steadying assist 3 The helper provides less than half the effort to complete the activity 2 The helper provides more than half the effort to complete the activity 1 Dependent. The helper does all the effort to complete an activity 7 Patient refused to complete or attempt activity 9 The patient did not perform the activity before the current illness or injury 88 Not attempted due to Medical conditions or safety concerns all TRFs Mod I. Gait Training no AD. pt pushes IV indep, needed min assist to tex one shoe. Has slight wind swept gait but no LOB, 400ft. in bed after Rx sitting EOB Exercises Supine Ex: Heel Slides, Hip abd/add Supine Reps: 10 Seated Therapy Exercises: Ankle pumps, Sit to stand, Long arc quads, Hip flexion Seated Reps: 10 Assessment Current Status: Excellent Progress good safe mobility PT Cyanide Furnace Operator Goals Cyanide Furnace Operator Goals PT Nursing Home Goals Time Frame: May 18, 2017 Transfers (B,C,W/C) (FIM): 6 Gait (FIM): 7 Distance: 500' Gait Assistive Device: None PT Plan Treatment/Plan Treatment Plan: Continue Plan of Care Treatment Plan: Bed Mobility, Education, Functional Activity [place], Functional Strength, Gait, Safety, Therapeutic Exercise, Transfers Treatment Duration: May 18, 2017 Frequency: 6 times per week Estimated Hrs Per Day: .25 hour per day (15-30 min) Patient and/or Family Agrees t: Yes Safety Risks/Education Patient Education: Gait Training, Transfer Techniques, Safety Issues (gait with IV safety) Teaching Recipient: Patient Teaching Methods: Demonstration, Discussion Response to Teaching: Verbalize Understanding, Return Demonstration Time/GCodes Time In: 1105 Time Out: 1120 Total Billed Treatment Time: 15 Total Billed Treatment 1,GT15m G Codes Necessary: No BETH KHAN SWIMMING POOL INSTALLER AND SERVICER May 12, 2017 11:29
--- NOTE | 2017-05-12 12:19 | Progress Note-Standard ---
Standard Progress Note Progress Notes/Assess & Plan Date Seen by Provider: May 12, 2017 Time Seen by Provider: 12:19 Progress/Assessment & Plan continues to improve. Afebrile. Tolerating diet. No bile in the drain. Liver function improving. clinically much improved. No bile in the drain but bilirubin and alkaline phosphatase are elevated. The concern for choledocholithiasis is real and therefore endoscopic ultrasound would be arranged as an outpatient during the beginning of the week. Final Diagnosis gangrenous cholecystitis. UTI. ABDULAZIZ BREWER MD May 12, 2017 12:19 pm
[2017-05-12] MEDS: ALFUZOSIN HCL 10 MG TAB (UROXATRAL) PO SCH (17:29)
[2017-05-12] MEDS: RIVAROXABAN 20 MG TABLET (XARELTO) PO SCH (17:29)
[2017-05-12 18:19] VITALS: BP 138/94
[2017-05-12 21:17] VITALS: BP 156/82
[2017-05-12] MEDS: FINASTERIDE (PROSCAR) 5 MG TAB PO SCH (21:21)
[2017-05-12] MEDS: SIMvastatin 40 MG (ZOCOR) TAB PO SCH (21:21)
[2017-05-12] MEDS: GABAPENTIN 300 MG (NEURONTIN) CAP PO SCH (21:21)
[2017-05-13] MEDS: PIPERACILLIN SODIUM/TAZOBACTAM 4.5 GM in NS (IVPB) 100 ML IV SCH ×4 (01:32→23:18)
[2017-05-13 06:00] VITALS: BP 154/94
[2017-05-13 06:29] LABS: BASOPHILS % (AUTO) 1 % (0-10); EOSINOPHILS # (AUTO) 0.3 10^3/uL (0.0-0.3); EOSINOPHILS % (AUTO) 4 % (0-10); LYMPHOCYTES # (AUTO) 0.7 X 10^3 (1.0-4.0); LYMPHOCYTES % (AUTO) 10 % (12-44); MEAN CORPUSCULAR HEMOGLOBIN 30 PG (25-34); MEAN CORPUSCULAR HGB CONC 33 G/DL (32-36); MEAN CORPUSCULAR VOLUME 91 FL (80-99); MEAN PLATELET VOLUME 8.8 FL (7.4-10.4); MONOCYTES # (AUTO) 0.8 X 10^3 (0.0-1.0); MONOCYTES % (AUTO) 11 % (0-12); NEUTROPHILS # (AUTO) 5.3 X 10^3 (1.8-7.8); NEUTROPHILS % (AUTO) 75 % (42-75); PLATELET COUNT 241 10^3/uL (130-400); RED BLOOD COUNT 3.82 10^6/uL (4.35-5.85); WHITE BLOOD COUNT 7.1 10^3/uL (4.3-11.0)
[2017-05-13] MEDS: PANTOPRAZOLE 40 MG (PROTONIX) TAB PO SCH (06:43)
[2017-05-13] MEDS: LACTOBACILLUS Acidoph/Bulgar (LACTINEX/FLORANEX) TAB PO SCH ×3 (06:43→16:14)
[2017-05-13 06:50] LABS: ALANINE AMINOTRANSFERASE 35 U/L (0-55); ALBUMIN 3.1 GM/DL (3.2-4.5); ANION GAP 11 MMOL/L (5-14); ASPARTATE AMINO TRANSFERASE 28 U/L (5-34); BILIRUBIN,TOTAL 1.4 MG/DL (0.1-1.0); BLOOD UREA NITROGEN 13 MG/DL (7-18); BUN/CREATININE RATIO 16; CALCIUM 8.8 MG/DL (8.5-10.1); CARBON DIOXIDE 21 MMOL/L (21-32); CHLORIDE 107 MMOL/L (98-107); GFR ESTIMATED > 60; GLUCOSE 91 MG/DL (70-105); POTASSIUM 3.8 MMOL/L (3.6-5.0); SODIUM 139 MMOL/L (135-145)
--- NOTE | 2017-05-13 08:16 | Progress Note (SOAP) ---
Subjective Time Seen by Provider: 08:15 Subjective/Events-last exam patient clinically feeling better and doing better. Gangrenous gallbladder. UTI. patient still getting drainage from the drain. Blood tests improving. To get a chest x-ray today Objective Exam Vital Signs Date Time Temp Pulse Resp B/P (MAP) Pulse Ox O2 Delivery O2 Flow Rate FiO2 05/13/17 06:00 99.1 93 18 154/94 94 Room Air 05/12/17 21:17 80 156/82 05/12/17 19:45 Room Air 05/12/17 18:19 99.5 78 18 138/94 95 Room Air I & O 05/13/17 07:00 Intake Total 1120 ml Output Total 50 ml Balance 1070 ml Capillary Refill : General Appearance: No Apparent Distress, WD/WN HEENT: Normal ENT Inspection Neck: Full Range of Motion, Normal Inspection Respiratory: Lungs Clear, Normal Breath Sounds, No Accessory Muscle Use, No Respiratory Distress, Other (uses BiPAP) Cardiovascular: Regular Rate, Rhythm, No Murmur Results Lab Laboratory Tests 05/13/17 05:45 Laboratory Tests 05/13/17 05:45: White Blood Count 7.1, Red Blood Count 3.82L, Hemoglobin 11.5L, Hematocrit 35L, Mean Corpuscular Volume 91, Mean Corpuscular Hemoglobin 30, Mean Corpuscular Hemoglobin Concent 33, Red Cell Distribution Width 14.0, Platelet Count 241, Mean Platelet Volume 8.8, Neutrophils (%) (Auto) 75, Lymphocytes (%) (Auto) 10L , Monocytes (%) (Auto) 11, Eosinophils (%) (Auto) 4, Basophils (%) (Auto) 1, Neutrophils # (Auto) 5.3, Lymphocytes # (Auto) 0.7L, Monocytes # (Auto) 0.8, Eosinophils # (Auto) 0.3, Basophils # (Auto) 0.0, Sodium Level 139, Potassium Level 3.8, Chloride Level 107, Carbon Dioxide Level 21, Anion Gap 11, Blood Urea Nitrogen 13, Creatinine 0.80, Estimat Glomerular Filtration Rate > 60, BUN/ Creatinine Ratio 16, Glucose Level 91, Calcium Level 8.8, Total Bilirubin 1.4H, Aspartate Amino Transf (AST/SGOT) 28, Alanine Aminotransferase (ALT/SGPT) 35, Alkaline Phosphatase 170H, Total Protein 6.0L, Albumin 3.1L Radiology NAME: MICHELINE ORTIZ [facility] REC#: [id number] PT STATUS: ADM IN : 1935 PHYSICIAN: TEQUILA WEBSTER MD ADMIT DATE: 05/11/17/ Signed Date of Exam: 05/11/17 CHEST PA/LAT (2 VIEW) INDICATION: Cough. COMPARISON: 08/18/2013. FINDINGS: Trace right pleural effusion. Patchy bibasilar airspace opacities are greater on the left. No pneumothorax. Stable cardiomegaly with left pectoral transvenous pacemaker. Bilateral shoulder arthroplasties are noted. IMPRESSION: 1. Patchy bibasilar airspace opacities are likely due to atelectasis; however, an infectious bronchiolitis could have this appearance. 2. Trace right pleural effusion. Dictated by: Dictated on workstation # [id number] Dict: 05/11/17 1554 Trans: 05/11/17 1614 Interpreted by: GUILLE SMITH MD Electronically signed by: GUILLE SMITH MD 05/11/17 1614 Assessment/Plan Assessment/Plan Assess & Plan/Chief Complaint gangrenous gallbladder. Atrial fibrillation.. Atelectasis versus bronchiolitis. . 05/13. Patient moving his gallbladder. Atrial fibrillation. Patient feeling better. Atelectasis versus bronchiolitis. Chest x-ray ordered today LAI WALKER DO May 13, 2017 08:16
[2017-05-13] MEDS: ACETAMINOPHEN 325 MG TABLET/CAPLET (TYLENOL) PO SCH ×2 (08:33→20:26)
[2017-05-13] MEDS: meTOprolol TARTRATE 50 MG (LOPRESSOR) TAB PO SCH ×2 (08:33→20:26)
[2017-05-13] MEDS: BETHANECHOL 25 MG (URECHOLINE) TAB PO SCH ×4 (08:33→20:26)
--- NOTE | 2017-05-13 10:29 | Diagnostic Imaging Report ---
INDICATION: Atelectasis versus pneumonia COMPARISON STUDY: Chest from 2 days ago. FINDINGS: Frontal and lateral views of the chest demonstrate improving atelectasis in the left lung base. Small pleural effusions are present. Cardiomegaly is stable. Cardiac pacemaker remains in place. The vascularity is normal. Postoperative changes are present in both shoulders. IMPRESSION: The mild atelectasis has improved. Cardiomegaly and small pleural effusions are stable. Dictated by: Dictated on workstation # [id number]
[2017-05-13] MEDS: ALFUZOSIN HCL 10 MG TAB (UROXATRAL) PO SCH (17:08)
[2017-05-13] MEDS: RIVAROXABAN 20 MG TABLET (XARELTO) PO SCH (17:08)
[2017-05-13 17:13] VITALS: BP 160/85
--- NOTE | 2017-05-13 20:03 | Progress Note-Standard ---
Standard Progress Note Progress Notes/Assess & Plan Date Seen by Provider: May 13, 2017 Time Seen by Provider: 19:15 Progress/Assessment & Plan continues to improve. Afebrile. Tolerating diet. No bile in the drain. Liver function improving. clinically much improved. No bile in the drain but bilirubin and alkaline phosphatase are elevated. The concern for choledocholithiasis is real and therefore endoscopic ultrasound would be arranged as an outpatient during the beginning of the week. no bile in the drain. Discharge tomorrow morning with plans for endoscopic ultrasound on Sunday Final Diagnosis gangrenous cholecystitis. Elevated liver enzymes. UTI. ABDULAZIZ BREWER MD May 13, 2017 8:03 pm
[2017-05-13] MEDS: SIMvastatin 40 MG (ZOCOR) TAB PO SCH (20:26)
[2017-05-13] MEDS: GABAPENTIN 300 MG (NEURONTIN) CAP PO SCH (20:26)
[2017-05-13] MEDS: FINASTERIDE (PROSCAR) 5 MG TAB PO SCH (20:44)
[2017-05-14] MEDS: PANTOPRAZOLE 40 MG (PROTONIX) TAB PO SCH (05:07)
[2017-05-14] MEDS: LACTOBACILLUS Acidoph/Bulgar (LACTINEX/FLORANEX) TAB PO SCH (05:07)
[2017-05-14 05:51] VITALS: BP 165/83
[2017-05-14 06:48] LABS: BASOPHILS % (AUTO) 1 % (0-10); EOSINOPHILS # (AUTO) 0.2 10^3/uL (0.0-0.3); EOSINOPHILS % (AUTO) 3 % (0-10); LYMPHOCYTES # (AUTO) 0.8 X 10^3 (1.0-4.0); LYMPHOCYTES % (AUTO) 11 % (12-44); MEAN CORPUSCULAR HEMOGLOBIN 30 PG (25-34); MEAN CORPUSCULAR HGB CONC 32 G/DL (32-36); MEAN CORPUSCULAR VOLUME 91 FL (80-99); MEAN PLATELET VOLUME 8.8 FL (7.4-10.4); MONOCYTES # (AUTO) 0.8 X 10^3 (0.0-1.0); MONOCYTES % (AUTO) 10 % (0-12); NEUTROPHILS # (AUTO) 5.5 X 10^3 (1.8-7.8); NEUTROPHILS % (AUTO) 75 % (42-75); PLATELET COUNT 274 10^3/uL (130-400); RED BLOOD COUNT 3.63 10^6/uL (4.35-5.85); RED CELL DISTRIBUTION WIDTH 13.8 % (10.0-14.5); WHITE BLOOD COUNT 7.4 10^3/uL (4.3-11.0)
[2017-05-14 07:07] LABS: ALANINE AMINOTRANSFERASE 26 U/L (0-55); ALBUMIN 3.1 GM/DL (3.2-4.5); ANION GAP 10 MMOL/L (5-14); ASPARTATE AMINO TRANSFERASE 20 U/L (5-34); BILIRUBIN,TOTAL 0.9 MG/DL (0.1-1.0); BLOOD UREA NITROGEN 11 MG/DL (7-18); BUN/CREATININE RATIO 14; CALCIUM 8.8 MG/DL (8.5-10.1); CARBON DIOXIDE 21 MMOL/L (21-32); CHLORIDE 108 MMOL/L (98-107); CREATININE SERUM 0.77 MG/DL (0.60-1.30); GFR ESTIMATED > 60; GLUCOSE 95 MG/DL (70-105); POTASSIUM 3.8 MMOL/L (3.6-5.0); SODIUM 139 MMOL/L (135-145); TOTAL PROTEIN 5.7 GM/DL (6.4-8.2)
[2017-05-14] MEDS ORDERED: LEVO500T2 PO (08:36)
[2017-05-14] MEDS ORDERED: ACID1TAB PO (08:36)
[2017-05-14] MEDS ORDERED: CEFT1VIA58 IM (08:36)
--- NOTE | 2017-05-14 08:41 | D/C HH Face to Face Order ---
D/C Face to Face Orders Instructions for Patient Patient Instructions/FollowUp: FOLLOW UP WITH DR. BREWER ON SUNDAY FOLLOW UP WITH DR. KOVACS ON SUNDAY - FOR OUTPATIENT ERCP FOLLOW UP WITH DR. WEBSTER IN 2 WEEKS Physician to follow Patient: DARIN Discharge Diet for Home: Low Fat/Low Cholesterol Patient Data-Allergies,Ht & Wt Patient Allergies: Coded Allergies: NKANo Known Allergies (Verified Allergy, Unknown, 05/07/17) Height (Feet): 5 Height (Inches): 6.00 Weight (Pounds): 223 Weight (Ounces): 5.0 Home Health Need/Face to Face Date of Face to Face: May 14, 2017 Clinical Findings: Generalized weakness and fatigue I have seen Pt [id number]: Yes Discharged To: Home Diagnosis/Conditions: CHOLELITHIASIS ELEVATED ALKALINE PHOSPHATASE HYPERTENSION WEAKNESS AMER[place] DRAIN IN PLACE RIGHT UPPER QUAD Problems/Diagnosis/Condition: Patient is Homebound due to: Muscle weakness Homebound Status Due to the above stated illness, injury or surgical procedure (medical condition or diagnosis) and associated clinical findings, the patient is homebound because of his/her inability to leave home except with aid of a supportive device and/or person AND leaving the home requires a considerable and taxing effort or is medically contraindicated. Pt req the following assistanc: Aid of another person Home Health Nursing Orders Home Health Services Order: Nursing Services, Physical Therapy-Evaluate & Treat PT NEEDS ROCEPHIN INJECTION 1 GRAM DAILY X 3 DAYS - STARTING ON 05/15/17 HOME HEALTH NURSE TO TEACH FAMILY HOW TO EMPTY AMERICO DRAIN IN RIGHT UPPER ABDOMEN, RECORD DRAIN OUTPUT, CHANGE DRESSING PRN Home Health Infusion Therapy Line Start Date: May 13, 2017 Line Start Time: 729 Certify Stmt I certify that this patient is under my care and that I, a nurse practitioner or a physician; a desk assistant working with me, had a face to face encounter that - meets the physician face to face encounter requirements with this patient as dated. TEQUILA WEBSTER MD May 14, 2017 08:41
[2017-05-14] MEDS: PIPERACILLIN SODIUM/TAZOBACTAM 4.5 GM in NS (IVPB) 100 ML IV SCH (08:51)
[2017-05-14] MEDS: meTOprolol TARTRATE 50 MG (LOPRESSOR) TAB PO SCH (08:52)
[2017-05-14] MEDS: BETHANECHOL 25 MG (URECHOLINE) TAB PO SCH (08:52)
[2017-05-14] MEDS: ACETAMINOPHEN 325 MG TABLET/CAPLET (TYLENOL) PO SCH (08:52)
--- NOTE | 2017-05-14 09:14 | Discharge Summary ---
Diagnosis/Chief Complaint Date of Admission May 11, 2017 at 10:14 Date of Discharge Discharge Date: May 14, 2017 Discharge Time: 1030 Admission Diagnosis Admission Diagnosis ACUTE CHOLECYSTITIS CHOLELITHIASIS HYPERBILIRUBINEMIA URINARY TRACT INFECTION - ENTEROCOCCAL AND ECOLI ELEVATED CRP LEUKOCYTOSIS HYPERTENSION HYPERLIPIDEMIA ATRIAL FIBRILLATION CHRONIC ANTICOAGULANT USE (NOAC USE - XARELTO) Discharge Diagnosis ACUTE CHOLECYSTITIS CHOLELITHIASIS HYPERBILIRUBINEMIA ELEVATED ALKALINE PHOSPHATASE URINARY TRACT INFECTION - ENTEROCOCCAL AND ECOLI ELEVATED CRP LEUKOCYTOSIS HYPERTENSION HYPERLIPIDEMIA ATRIAL FIBRILLATION CHRONIC ANTICOAGULANT USE (NOAC USE - XARELTO) Reason Hospital Visit PT IS AN 81 Y/O MALE WHO IS KNOWN TO ME FROM CLINIC. HE REPORTS THAT HE WAS FEELING POORLY ON SUNDAY. HE REPORTS NAUSEA, ABDOMINAL PAIN AND THEN IT STARTED TO IMPROVE, THEN LATE SUNDAY NIGHT, EARLY SUNDAY MORNING HE HAD A RECURRENCE OF HIS ABDOMINAL PAIN, NAUSEA, FEVER. HIS INSISTED ON LETICIA GOING TO THE EMERGENCY DEPARTMENT WHERE HE WAS FOUND TO HAVE ACUTE CHOLELITHIASIS WITH A STONE IN THE NECK OF THE GALLBLADDER, AND AN ACUTE URINARY TRACT INFECTION WITH ELEVATED CRP OF 23 AND WHITE COUNT OF 17, AND ELEVATED BILIRUBIN WELL. Discharge Summary Procedures: CHOLECYSTECTOMY, INTRAOPERATIVE CHOLANGIOGRAM Consultations DR. BREWER Discharge Physical Examination Allergies: Coded Allergies: NKANo Known Allergies (Verified Allergy, Unknown, 05/07/17) Vitals & I&Os Vital Signs Date Time Temp Pulse Resp B/P (MAP) Pulse Ox O2 Delivery O2 Flow Rate FiO2 05/14/17 05:51 97.8 72 20 165/83 95 Room Air 05/13/17 19:46 2.50 General Appearance: Alert, Oriented X3, Cooperative HEENT: Atraumatic, PERRLA Respiratory: Clear to Auscultation, Normal Air Movement Cardiovascular: Regular Rate Abdominal: Normal Bowel Sounds, Soft Extremities: No Clubbing, Normal Pulses Skin: No Rashes Neuro: Normal Speech, Cranial Nerves 3-12 NL Psych/Mental Status: Mental Status NL, Mood NL Hospital Course ACUTE CHOLECYSTITIS CHOLELITHIASIS HYPERBILIRUBINEMIA URINARY TRACT INFECTION - ENTEROCOCCAL AND ECOLI ELEVATED CRP LEUKOCYTOSIS HYPERTENSION HYPERLIPIDEMIA ATRIAL FIBRILLATION 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 BREWER - - WITH IMPROVED BILIRUBIN LEVEL POST OP DAY #2 ON 05/11/17 - THEN THE NUMBERS INCREASED ON POST-OP DAY #2 AND 3, AND HAS IMPROVED ON DAY OF DISCHARGE DOWN TO NORMAL, WITH AN ALKALINE PHOSPHATASE THAT IS STILL SLIGHTLY ELEVATED. PT WAS PLACED ON SWING BED WITH CONTINUED NEED FOR ANTIBIOTICS, PHYSICAL THERAPY, REC THERAPY AND HE HAS HAD IMPROVEMENT IN HIS SYMPTOMS. ENTEROCOCCAL AND ECOLI URINARY TRACT INFECTION - ON ZOSYN INPATIENT - DAY #7 OF ANTIBIOTICS - WILL USE ROCEPHIN INJECTIONS AND LEVAQUIN ORALLY X 3 MORE DAYS FOR A TOTAL OF 10 DAYS ANTIBIOTIC THERAPY. ELEVATED CRP AND LEUKOCYTOSIS DUE TO ACUTE CHOLELITHIASIS AND UTI - IMPROVED WHITE COUNT - DOWN TO NORMAL LEVELS. HYPERTENSION - CONTINUE WITH METOPROLOL HYPERLIPIDEMIA - CONTINUE STATIN ATRIAL FIBRILLATION - RESTARTED XARELTO - HOWEVER, WITH PLANS FOR ERCP TOMORROW - WILL HAVE PATIENT HOLD XARELTO AND ASPIRIN TONIGHT (05/14/17) AND TOMORROW (05/15/17). CHRONIC ANTICOAGULANT USE (NOAC USE - XARELTO) - RESTARTED ON 05/11/17 - HOLD AND 05/15 GI PROPHYLAXIS - PPI DVT PROPHYLAXIS - , SCD'S WHILE IN HOSPITAL, PT ON XARELTO ORALLY CHRONICALLY DISCHARGE TO HOME WITH HOME HEALTH FOR ROCEPHIN INJECTIONS, DRAIN MONITORING AND PHYSICAL THERAPY - WHEN DISCHARGED FROM HOME HEALTH WILL RESTART THERAPY AT [facility]. Pending Labs Laboratory Tests 05/14/17 06:09: White Blood Count 7.4, Red Blood Count 3.63, Hemoglobin 10.7, Hematocrit 33, Mean Corpuscular Volume 91, Mean Corpuscular Hemoglobin 30, Mean Corpuscular Hemoglobin Concent 32, Red Cell Distribution Width 13.8, Platelet Count 274, Mean Platelet Volume 8.8, Neutrophils (%) (Auto) 75, Lymphocytes (%) (Auto) 11, Monocytes (%) (Auto) 10, Eosinophils (%) (Auto) 3, Basophils (%) (Auto) 1, Neutrophils # (Auto) 5.5, Lymphocytes # (Auto) 0.8, Monocytes # (Auto) 0.8, Eosinophils # (Auto) 0.2, Basophils # (Auto) 0.0, Sodium Level 139, Potassium Level 3.8, Chloride Level 108, Carbon Dioxide Level 21, Anion Gap 10, Blood Urea Nitrogen 11, Creatinine 0.77, Estimat Glomerular Filtration Rate > 60, BUN/ Creatinine Ratio 14, Glucose Level 95, Calcium Level 8.8, Total Bilirubin 0.9, Aspartate Amino Transf (AST/SGOT) 20, Alanine Aminotransferase (ALT/SGPT) 26, Alkaline Phosphatase 172, Total Protein 5.7, Albumin 3.1 Discharge Condition at discharge IMPROVING Instructions to patient/family Please see electonic discharge instructions given to patient. Discharge Medications Reviewed and agree with Discharge Medication list on patient's Discharge Instruction sheet Medication List: Active Scripts Active Floranex Tablet (L. Acidophilus/Bulgaricus) 1 Each Tablet 1 Tab.chew PO AC 10 Days Ceftriaxone (Ceftriaxone Sodium) 1 Gm Vial 1 Gm IM DAILY 3 Days TO BE ADMINISTERED BY DR. EDUARDO Hager (Levofloxacin) 500 Mg Tablet 500 Mg PO DAILY Reported [Arithrimend] 2 Tab PO DAILY Aspirin EC (Aspirin) 81 Mg Tablet.dr 162 Mg PO DAILY TAKES 2 (81MG) TABLETS Ocuvite Softgel (Vit C/Vit E/Lutein/Min/Shevlin-3) 1 Each Capsule 1 Cap PO DAILY [Seble Henley Axel's Vit] 1 Tab PO HS Fenofibrate 54 Mg Tablet 54 Mg PO HS Gabapentin 300 Mg Capsule 300 Mg PO HS Simvastatin 40 Mg Tablet 40 Mg PO HS Metoprolol Tartrate 100 Mg Tablet 100 Mg PO BID Bethanechol Chloride 25 Mg Tablet 25 Mg PO QID Hydrochlorothiazide 12.5 Mg Capsule 12.5 Mg PO DAILY Finasteride 5 Mg Tablet 5 Mg PO HS Tamsulosin HCl 0.4 Mg Cap.er.24h 0.4 Mg PO DAILY Xarelto (Rivaroxaban) 20 Mg Tablet 20 Mg PO HS Acetaminophen 325 Mg Tablet 650 Mg PO BID TAKES 2 (325MG) TABLETS TEQUILA WEBSTER MD May 14, 2017 09:14
--- NOTE | 2017-05-14 10:37 | Physical Therapy Daily Note ---
PT Daily Note-Current Subjective Patient agrees to PT. Pain Numeric Pain Scale: 0-No Pain Location: No Pain Reported Mental Status Patient Orientation: Normal For Age Attachments: Drains, IV Transfers Functional [place] Measure 0=Not Assessed/NA 4=Minimal Assistance 1=Total Assistance 5=Supervision or Setup 2=Maximal Assistance 6=Modified [place] 3=Moderate Assistance 7=Complete IndependenceIRFPAI Quality Coding Scale 6 Independent with activity with or without an assistive device 5 Patient requires set up or clean up by helper. Patient completes activity by themselves 4 Supervision or touching assist (CGA). [place] provide cues , steadying assist 3 The helper provides less than half the effort to complete the activity 2 The helper provides more than half the effort to complete the activity 1 Dependent. The helper does all the effort to complete an activity 7 Patient refused to complete or attempt activity 9 The patient did not perform the activity before the current illness or injury 88 Not attempted due to Medical conditions or safety concerns Transfers (B, C, W/C) (FIM): 7 Scootin Roll Left to Right (QC): 6 Supine to/from Sit: 7 Sit to/from Stand: 7 Sit to Lying (QC): 6 Sit to Stand (QC): 6 Gait Training Does the Patient Walk?: Yes Gait (FIM): 7 Distance (FIM): 3=150 ft Distance: 400' Walk 50 ft with 2 Turns(QC): 6 Walk 150 ft (QC): 6 Gait Level of Assist: 7 Gait Assistive Device: None safe and functional Assessment Current Status: Excellent Progress Patient is currently at independent PLOF with all gross motor skills and will dismiss to home on this date. PT Shelter Goals Interior Surface Insulation Worker Goals PT Shelter Goals Time Frame: May 18, 2017 Transfers (B,C,W/C) (FIM): 6 (met 05/14/17) Sit to Lying (QC): 6 (met 05/14/17) Lying-Sitting on Side/Bed(QC): 6 (met 05/14) Sit to Stand (QC): 6 (met 05/14/17) Rollin (met 05/14/17) Chair/[id number] Xfer(QC): 6 (met 05/14/17) Gait (FIM): 7 (met 05/14/17) Distance: 500' Walk 50ft with 2 Turns (QC): 6 (met 05/14/17) Walk 150 ft (QC): 6 (met 05/14/17) Gait Assistive Device: None PT Plan Treatment/Plan Treatment Plan: Discontinue PT, goals met Treatment Plan: Bed Mobility, Education, Functional Activity [place], Functional Strength, Gait, Safety, Therapeutic Exercise, Transfers Treatment Duration: May 18, 2017 Frequency: 6 times per week Estimated Hrs Per Day: .25 hour per day (15-30 min) Patient and/or Family Agrees t: Yes Time/GCodes Time In: 1005 Time Out: 1020 Total Billed Treatment Time: 15 Total Billed Treatment 1 visit FA 15 min VIGNESH JONES PT May 14, 2017 10:37
--- NOTE | 2017-05-14 10:38 | Therapy Team Discharge Summary ---
Therapy Discharge Summary Discharge Recommendations Date of Discharge Therapy D/C Recommendations: Home w/ Family Support Physical Therapy Patient is currently at independent PLOF with all gross motor skills. Patient has no c/o or concerns with mobility or strength. All Goals attained. PT Aircraft Charter Dispatcher Goals Aircraft Charter Dispatcher Goals PT Aircraft Charter Dispatcher Goals Time Frame: May 18, 2017 Transfers (B,C,W/C) (FIM): 6 (met 05/14/17) Sit to Lying (QC): 6 (met 05/14/17) Lying-Sitting on Side/Bed(QC): 6 (met 05/14) Sit to Stand (QC): 6 (met 05/14/17) Rollin (met 05/14/17) Chair/[id number] Xfer(QC): 6 (met 05/14/17) Gait (FIM): 7 (met 05/14/17) Distance: 500' Walk 50ft with 2 Turns (QC): 6 (met 05/14/17) Walk 150 ft (QC): 6 (met 05/14/17) Gait Assistive Device: None OT Aircraft Charter Dispatcher Goals Aircraft Charter Dispatcher Goals 1=Demonstrate adherence to instructed precautions during ADL tasks. 2=Patient will verbalize/demonstrate understanding of assistive devices/ modifications for ADL. 3=Patient will improve strength/tolerance for activity to enable patient to perform ADL's. VIGNESH DOAN PT May 14, 2017 10:38
[2017-05-14 12:58] VITALS: BP 165/83
== END 2017-05-14 12:58 | disposition home health service (06) | DRG 949 ==
LOC: 4TH 10:14 → ENPENDDIS 05-14 10:30
PROVIDERS: ADMIT Family Medicine; ATTEND Family Medicine
DX: Z48.815 Encounter for surgical aftercare following surgery on the digestive system (principal); N39.0 Urinary tract infection, site not specified; J98.11 Atelectasis; B95.2 Enterococcus as the cause of diseases classified elsewhere; R74.8 Abnormal levels of other serum enzymes; I48.91 Unspecified atrial fibrillation; K57.90 Diverticulosis of intestine, part unspecified, without perforation or abscess without bleeding; I25.10 Atherosclerotic heart disease of native coronary artery without angina pectoris; G47.30 Sleep apnea, unspecified; N42.9 Disorder of prostate, unspecified; R33.9 Retention of urine, unspecified; R39.11 Hesitancy of micturition; M19.91 Primary osteoarthritis, unspecified site; M54.9 Dorsalgia, unspecified; I25.2 Old myocardial infarction; Z85.038 Personal history of other malignant neoplasm of large intestine; Z87.19 Personal history of other diseases of the digestive system; Z79.01 Long term (current) use of anticoagulants; Z95.5 Presence of coronary angioplasty implant and graft; Z96.612 Presence of left artificial shoulder joint
CPT/HCPCS: 36415; 71020; 80053; 85025; 85027

== ENCOUNTER 2017-07-09 09:51 | Outpatient (RCR) | payer MEDICARE, OTHER ==
[~2017-07-09 09:51] MED LIST changes: +ACID1TAB PO; +CEFT1VIA58 IM; -METO-274 PO; +METO-395 PO; +METO100T12 PO; -METO100T2 PO
[2017-07-09 10:20] LABS: BASOPHILS % (AUTO) 1 % (0-10); EOSINOPHILS # (AUTO) 0.1 10^3/uL (0.0-0.3); EOSINOPHILS % (AUTO) 3 % (0-10); HEMATOCRIT 42 % (40-54); HEMOGLOBIN 13.5 G/DL (13.3-17.7); LYMPHOCYTES # (AUTO) 1.2 X 10^3 (1.0-4.0); LYMPHOCYTES % (AUTO) 22 % (12-44); MEAN CORPUSCULAR HEMOGLOBIN 29 PG (25-34); MEAN CORPUSCULAR HGB CONC 32 G/DL (32-36); MEAN CORPUSCULAR VOLUME 91 FL (80-99); MEAN PLATELET VOLUME 9.2 FL (7.4-10.4); MONOCYTES # (AUTO) 0.7 X 10^3 (0.0-1.0); MONOCYTES % (AUTO) 13 % (0-12); NEUTROPHILS # (AUTO) 3.3 X 10^3 (1.8-7.8); NEUTROPHILS % (AUTO) 62 % (42-75); PLATELET COUNT 194 10^3/uL (130-400); RED BLOOD COUNT 4.61 10^6/uL (4.35-5.85); RED CELL DISTRIBUTION WIDTH 13.5 % (10.0-14.5); WHITE BLOOD COUNT 5.2 10^3/uL (4.3-11.0)
[2017-07-09 10:37] LABS: ALBUMIN 4.1 GM/DL (3.2-4.5); BILIRUBIN,TOTAL 0.6 MG/DL (0.1-1.0); CALCIUM 9.4 MG/DL (8.5-10.1); CREATININE SERUM 1.18 MG/DL (0.60-1.30); POTASSIUM 4.3 MMOL/L (3.6-5.0)
== END 2017-10-07 | disposition home or self-care (01) ==
LOC: ONC 09:51
PROVIDERS: ATTEND Internal Medicine Hematology & Oncology
DX: Z08 Encounter for follow-up examination after completed treatment for malignant neoplasm (principal); Z85.038 Personal history of other malignant neoplasm of large intestine; I48.91 Unspecified atrial fibrillation; I12.9 Hypertensive chronic kidney disease with stage 1 through stage 4 chronic kidney disease, or unspecified chronic kidney disease; N18.3 Chronic kidney disease, stage 3 (moderate); E78.00 Pure hypercholesterolemia, unspecified; I25.10 Atherosclerotic heart disease of native coronary artery without angina pectoris; Z90.49 Acquired absence of other specified parts of digestive tract; Z79.01 Long term (current) use of anticoagulants; Z79.82 Long term (current) use of aspirin
CPT/HCPCS: 36415; 80053; 82378; 85025; 99213

== ENCOUNTER → 2018-04-01 | Outpatient (CLI) | payer MEDICARE, OTHER | LOC: RT 07:54 | PROVIDERS: ATTEND Nurse Practitioner Family | DX: R06.00 Dyspnea, unspecified (principal) | CPT/HCPCS: 94060; 94726; 94729 ==

== ENCOUNTER 2018-07-09 08:48 | Outpatient (RCR) | payer MEDICARE, OTHER ==
[~2018-07-09 08:48] MED LIST changes: -CEFT1VIA58 IM; +CFTR1V IM
[2018-07-09 09:12] LABS: BASOPHILS % (AUTO) 0 % (0-10); EOSINOPHILS # (AUTO) 0.1 10^3/uL (0.0-0.3); EOSINOPHILS % (AUTO) 2 % (0-10); HEMATOCRIT 42 % (40-54); LYMPHOCYTES # (AUTO) 0.9 X 10^3 (1.0-4.0); LYMPHOCYTES % (AUTO) 18 % (12-44); MEAN CORPUSCULAR HEMOGLOBIN 31 PG (25-34); MEAN CORPUSCULAR HGB CONC 33 G/DL (32-36); MEAN CORPUSCULAR VOLUME 92 FL (80-99); MEAN PLATELET VOLUME 8.9 FL (7.4-10.4); MONOCYTES # (AUTO) 0.6 X 10^3 (0.0-1.0); MONOCYTES % (AUTO) 13 % (0-12); NEUTROPHILS # (AUTO) 3.2 X 10^3 (1.8-7.8); NEUTROPHILS % (AUTO) 66 % (42-75); PLATELET COUNT 175 10^3/uL (130-400); RED BLOOD COUNT 4.59 10^6/uL (4.35-5.85); RED CELL DISTRIBUTION WIDTH 13.6 % (10.0-14.5); WHITE BLOOD COUNT 4.8 10^3/uL (4.3-11.0)
[2018-07-09 09:38] LABS: ALANINE AMINOTRANSFERASE 27 U/L (0-55); ALBUMIN 4.3 GM/DL (3.2-4.5); ALKALINE PHOSPHATASE 55 U/L (40-136); BILIRUBIN,TOTAL 0.9 MG/DL (0.1-1.0); BUN/CREATININE RATIO 20; CALCIUM 9.5 MG/DL (8.5-10.1); CARBON DIOXIDE 25 MMOL/L (21-32); CHLORIDE 107 MMOL/L (98-107); CREATININE SERUM 1.11 MG/DL (0.60-1.30); GFR ESTIMATED > 60; GLUCOSE 119 MG/DL (70-105); SODIUM 138 MMOL/L (135-145); TOTAL PROTEIN 6.7 GM/DL (6.4-8.2)
== END 2018-10-07 | disposition home or self-care (01) ==
LOC: ONC 08:48
PROVIDERS: ATTEND Internal Medicine Hematology & Oncology
DX: Z08 Encounter for follow-up examination after completed treatment for malignant neoplasm (principal); Z85.038 Personal history of other malignant neoplasm of large intestine; I48.91 Unspecified atrial fibrillation; I12.9 Hypertensive chronic kidney disease with stage 1 through stage 4 chronic kidney disease, or unspecified chronic kidney disease; N18.3 Chronic kidney disease, stage 3 (moderate); E78.00 Pure hypercholesterolemia, unspecified; I25.10 Atherosclerotic heart disease of native coronary artery without angina pectoris; Z90.49 Acquired absence of other specified parts of digestive tract; Z79.01 Long term (current) use of anticoagulants; Z79.82 Long term (current) use of aspirin
CPT/HCPCS: 36415; 80053; 82378; 85025; 99213

== ENCOUNTER → 2018-08-05 | Outpatient (CLI) | payer MEDICARE, OTHER ==
[~2018-08-05] MED LIST changes: +IOHEXOL 350 MG/ML 150 ML (OMNIPAQUE 350) VIAL IV ONE; +NS 250 ML (IVPB) BAG IV ONE; +RECEIVED CONTRAST (Hold Metformin) IV SCH; +RT-ALBUTEROL SULF 2.5 MG/3 ML PRE-MIX VIAL INH ONE
[2018-08-05 12:27] LABS: BUN/CREATININE RATIO 17; CREATININE SERUM 1.15 MG/DL (0.60-1.30); GFR ESTIMATED > 60
--- NOTE | 2018-08-05 17:05 | Diagnostic Imaging Report ---
PROCEDURE: CT angiography of the chest with contrast. TECHNIQUE: Multiple contiguous axial images were obtained through the chest after uneventful bolus administration of intravenous contrast. 2D reconstructed CTA MIP acquisitions were also performed. INDICATION: Atrial fibrillation. COMPARISON: Comparison is made with prior exam from 04/15/2013. FINDINGS: Left chest wall cardiac pacemaker is in place. Pulmonary arterial system is without thromboembolism. No filling defects are seen within the central, lobar, or segmental branches. The thoracic aorta is calcified but nonaneurysmal. Heart does show some mild enlargement. Pulmonary veins are unremarkable. No pericardial or pleural fluid is seen. There is some atelectasis or scarring in the medial portion of the left lower lobe. There is also minimal scarring or atelectasis in the lingula. No other significant abnormality is seen. Liver does show some hepatic steatosis. IMPRESSION: Left basilar scarring or subsegmental atelectasis. CT angiogram of the chest is otherwise unremarkable. Dictated by: Dictated on workstation # [id number]
== END ==
LOC: RAD 11:58
PROVIDERS: ATTEND Nurse Practitioner Family
DX: I48.91 Unspecified atrial fibrillation (principal); G47.30 Sleep apnea, unspecified
CPT/HCPCS: 36415; 71275; 82565; 84520; 94060; 94726; 94729

== ENCOUNTER 2019-01-15 20:40 | Outpatient (CLI) | payer MEDICARE, OTHER ==
[~2019-01-15 20:40] MED LIST changes: -IOHEXOL 350 MG/ML 150 ML (OMNIPAQUE 350) VIAL IV ONE; -NS 250 ML (IVPB) BAG IV ONE; +OCUVITE SOFTGE1 EACH PO; -RECEIVED CONTRAST (Hold Metformin) IV SCH; -RIVA20TA PO; -RT-ALBUTEROL SULF 2.5 MG/3 ML PRE-MIX VIAL INH ONE; -VIT1CAPS9 PO
== END 2019-01-16 06:36 | disposition home or self-care (01) ==
LOC: SLEEP 20:40
PROVIDERS: ATTEND Nurse Practitioner Family
DX: G47.33 Obstructive sleep apnea (adult) (pediatric) (principal); R06.3 Periodic breathing; R06.00 Dyspnea, unspecified; I48.91 Unspecified atrial fibrillation
CPT/HCPCS: 95811

== ENCOUNTER → 2019-07-09 | Outpatient (CLI) | payer MEDICARE, OTHER ==
[2019-07-09 09:05] LABS: BASOPHILS % (AUTO) 1 % (0-10); EOSINOPHILS # (AUTO) 0.2 10^3/uL (0.0-0.3); EOSINOPHILS % (AUTO) 3 % (0-10); HEMATOCRIT 41 % (40-54); HEMOGLOBIN 13.5 G/DL (13.3-17.7); LYMPHOCYTES # (AUTO) 0.9 X 10^3 (1.0-4.0); LYMPHOCYTES % (AUTO) 18 % (12-44); MEAN CORPUSCULAR HEMOGLOBIN 30 PG (25-34); MEAN CORPUSCULAR HGB CONC 33 G/DL (32-36); MEAN CORPUSCULAR VOLUME 93 FL (80-99); MEAN PLATELET VOLUME 9.2 FL (7.4-10.4); MONOCYTES # (AUTO) 0.6 X 10^3 (0.0-1.0); MONOCYTES % (AUTO) 13 % (0-12); NEUTROPHILS # (AUTO) 3.2 X 10^3 (1.8-7.8); NEUTROPHILS % (AUTO) 65 % (42-75); PLATELET COUNT 161 10^3/uL (130-400); RED CELL DISTRIBUTION WIDTH 13.2 % (10.0-14.5); WHITE BLOOD COUNT 4.9 10^3/uL (4.3-11.0)
[2019-07-09 09:21] LABS: ALANINE AMINOTRANSFERASE 23 U/L (0-55); ALBUMIN 4.3 GM/DL (3.2-4.5); ALKALINE PHOSPHATASE 74 U/L (40-136); BUN/CREATININE RATIO 15; CALCIUM 9.7 MG/DL (8.5-10.1); CARBON DIOXIDE 24 MMOL/L (21-32); CHLORIDE 107 MMOL/L (98-107); CREATININE SERUM 1.15 MG/DL (0.60-1.30); GFR ESTIMATED > 60; GLUCOSE 122 MG/DL (70-105); POTASSIUM 4.1 MMOL/L (3.6-5.0); SODIUM 140 MMOL/L (135-145); TOTAL PROTEIN 6.8 GM/DL (6.4-8.2)
== END ==
LOC: EDSTATUS 10-08 08:51 → ONC 08:53
PROVIDERS: ATTEND Internal Medicine Hematology & Oncology
DX: Z08 Encounter for follow-up examination after completed treatment for malignant neoplasm (principal); Z85.038 Personal history of other malignant neoplasm of large intestine; I48.91 Unspecified atrial fibrillation; I12.9 Hypertensive chronic kidney disease with stage 1 through stage 4 chronic kidney disease, or unspecified chronic kidney disease; N18.3 Chronic kidney disease, stage 3 (moderate); E78.00 Pure hypercholesterolemia, unspecified; I25.10 Atherosclerotic heart disease of native coronary artery without angina pectoris; Z90.49 Acquired absence of other specified parts of digestive tract; Z79.01 Long term (current) use of anticoagulants; Z79.82 Long term (current) use of aspirin
CPT/HCPCS: 36415; 80053; 82378; 85025; 99213

== ENCOUNTER → 2019-09-22 | Outpatient (CLI) | payer MEDICARE, OTHER ==
[~2019-09-22] MED LIST changes: +HOLD METFORMIN - RECEIVED CONTRAST 20 ML VIAL IV SCH; +IOHEXOL 350 MG/ML 100 ML (OMNIPAQUE 350) VIAL IV ONE; +NS 100 ML (IVPB) BAG IV ONE
[2019-09-22 13:24] LABS: CREATININE SERUM 0.99 MG/DL (0.60-1.30); GFR ESTIMATED > 60
--- NOTE | 2019-09-22 16:38 | Diagnostic Imaging Report ---
CLINICAL INDICATION: Patient with right ear infection, has no hearing. Patient with some hearing loss in the left ear. EXAM: Axial CT scan of the IACs performed without and with 75 mL of Omnipaque 350 IV contrast. Coronal and sagittal reformatted images are created. Auto Exposure Controls were utilized during the CT exam to meet ALARA standards for radiation dose reduction. COMPARISON: None. FINDINGS: There is a ymjrs-nk-bclpoftv amount of fluid in the right mastoid air cells. There is a small amount of thickening in the epitympanum region and Prussak's space. There are no erosions of the scutum seen. There is retracted appearance of the tympanic membrane. There is soft tissue thickening involving the right external auditory canal which is occluded. Bilateral IACs show no enhancing mass or retrocochlear abnormality. The remainder of the right temporal bone structures/IACs are unremarkable. The left temporal bone/IAC are unremarkable. The left mastoid air cells are clear. The IACs, inner ears, left middle ear, and left external auditory canal are unremarkable. The oval and round windows are patent. There is no evidence of semicircular canal dehiscence. No evidence of aberrant vascular structures. The vestibular canals have normal appearance bilaterally. There is mild mucosal thickening involving right maxillary sinus and ethmoid sinus. There is minimal mucosal thickening involving the sphenoid sinus. IMPRESSION: 1: There is a kwpqo-jz-nejodonk amount of fluid in the right mastoid air cells and minimal fluid or density in the epitympanum of the right middle ear in Prussak's space. There is no evidence of bony erosions. This may just be related to an infectious or inflammatory process. 2: There is soft tissue thickening and occlusion of the right external auditory canal. This may also be cause for hearing loss on the right. Otitis externa on the right may be considered. 3: There is no abnormal IV contrast enhancement or retrocochlear mass seen on this exam. Dictated by: Dictated on workstation # [id number]
== END ==
LOC: RAD 12:05
DX: H60.61 Unspecified chronic otitis externa, right ear (principal); H91.92 Unspecified hearing loss, left ear; H61.391 Other acquired stenosis of right external ear canal; R23.8 Other skin changes
CPT/HCPCS: 36415; 70482; 82565

== ENCOUNTER 2019-12-01 08:21 | Outpatient (RCR) | payer MEDICARE, OTHER ==
[2019-10-22 13:00] VITALS: BP 152/93
[2019-10-23 08:25] VITALS: BP 154/94
[2019-10-23] MEDS: cefTRIAXone 2,000 MG/SWFI 20 ML IV PUSH IV SCH ×2 (08:47)
[2019-10-24 08:27] VITALS: BP 139/94
[2019-10-24] MEDS: cefTRIAXone 2,000 MG/SWFI 20 ML IV PUSH IV SCH ×2 (08:35)
[2019-10-25] MEDS: cefTRIAXone 2,000 MG/SWFI 20 ML IV PUSH IV SCH ×2 (08:36)
[2019-10-25 08:45] VITALS: BP 131/81
[2019-10-25] MEDS: CATHETER FLUSH 10 ML SYR IV PRN (08:45)
[2019-10-26] MEDS: CATHETER FLUSH 10 ML SYR IV PRN (08:55)
[2019-10-26] MEDS: cefTRIAXone 2,000 MG/SWFI 20 ML IV PUSH IV SCH ×2 (08:55)
[2019-10-26 09:00] VITALS: BP 143/84
[2019-10-27 08:54] VITALS: BP 165/100
[2019-10-27] MEDS: cefTRIAXone 2,000 MG/SWFI 20 ML IV PUSH IV SCH ×2 (08:54)
[2019-10-27] MEDS: CATHETER FLUSH 10 ML SYR IV PRN (08:54)
[2019-10-28 08:53] VITALS: BP 166/105
[2019-10-28] MEDS: cefTRIAXone 2,000 MG/SWFI 20 ML IV PUSH IV SCH ×2 (09:01)
[2019-10-28] MEDS: CATHETER FLUSH 10 ML SYR IV PRN (09:02)
[2019-10-28 09:06] LABS: HEMOGLOBIN 12.5 G/DL (13.3-17.7); MEAN PLATELET VOLUME 9.3 FL (7.4-10.4); RED CELL DISTRIBUTION WIDTH 14.1 % (10.0-14.5); WHITE BLOOD COUNT 4.6 10^3/uL (4.3-11.0)
[2019-10-28 09:26] LABS: BUN/CREATININE RATIO 19; CALCIUM 9.5 MG/DL (8.5-10.1); CARBON DIOXIDE 23 MMOL/L (21-32); CHLORIDE 107 MMOL/L (98-107); CREATININE SERUM 0.86 MG/DL (0.60-1.30); GFR ESTIMATED > 60; GLUCOSE 140 MG/DL (70-105); POTASSIUM 4.4 MMOL/L (3.6-5.0); SODIUM 139 MMOL/L (135-145)
[2019-10-29] MEDS: cefTRIAXone 2,000 MG/SWFI 20 ML IV PUSH IV SCH ×2 (08:37)
[2019-10-29 08:40] VITALS: BP 170/108
[2019-10-30] MEDS: cefTRIAXone 2,000 MG/SWFI 20 ML IV PUSH IV SCH ×2 (08:45)
[2019-10-30] MEDS: CATHETER FLUSH 10 ML SYR IV PRN (08:45)
[2019-10-30 08:52] VITALS: BP 153/100
[2019-10-31] MEDS: cefTRIAXone 2,000 MG/SWFI 20 ML IV PUSH IV SCH ×2 (08:34)
[2019-10-31] MEDS: CATHETER FLUSH 10 ML SYR IV PRN (08:42)
[2019-10-31 08:47] VITALS: BP 133/94
[2019-11-01 08:50] VITALS: BP 129/80
[2019-11-01] MEDS: cefTRIAXone 2,000 MG/SWFI 20 ML IV PUSH IV SCH ×2 (09:02)
[2019-11-02 08:45] VITALS: BP 160/95
[2019-11-02] MEDS: cefTRIAXone 2,000 MG/SWFI 20 ML IV PUSH IV SCH ×2 (08:51)
[2019-11-03] MEDS: cefTRIAXone 2,000 MG/SWFI 20 ML IV PUSH IV SCH ×2 (08:29)
[2019-11-03] MEDS: CATHETER FLUSH 10 ML SYR IV PRN (08:29)
[2019-11-03 08:37] VITALS: BP 163/95
[2019-11-04] MEDS: CATHETER FLUSH 10 ML SYR IV PRN (08:37)
[2019-11-04] MEDS: cefTRIAXone 2,000 MG/SWFI 20 ML IV PUSH IV SCH ×2 (08:37)
[2019-11-04 08:50] VITALS: BP 142/87
[2019-11-04 09:00] LABS: BASOPHILS % (AUTO) 1 % (0-10); EOSINOPHILS # (AUTO) 0.1 10^3/uL (0.0-0.3); EOSINOPHILS % (AUTO) 2 % (0-10); HEMATOCRIT 39 % (40-54); HEMOGLOBIN 12.4 G/DL (13.3-17.7); LYMPHOCYTES # (AUTO) 0.9 X 10^3 (1.0-4.0); LYMPHOCYTES % (AUTO) 18 % (12-44); MEAN CORPUSCULAR HEMOGLOBIN 30 PG (25-34); MEAN CORPUSCULAR HGB CONC 32 G/DL (32-36); MEAN CORPUSCULAR VOLUME 93 FL (80-99); MEAN PLATELET VOLUME 9.4 FL (7.4-10.4); MONOCYTES # (AUTO) 0.7 X 10^3 (0.0-1.0); MONOCYTES % (AUTO) 13 % (0-12); NEUTROPHILS # (AUTO) 3.3 X 10^3 (1.8-7.8); NEUTROPHILS % (AUTO) 66 % (42-75); PLATELET COUNT 171 10^3/uL (130-400)
[2019-11-04 09:18] LABS: BUN/CREATININE RATIO 20; CALCIUM 9.4 MG/DL (8.5-10.1); CARBON DIOXIDE 27 MMOL/L (21-32); CHLORIDE 106 MMOL/L (98-107); CREATININE SERUM 0.91 MG/DL (0.60-1.30); GFR ESTIMATED > 60; GLUCOSE 97 MG/DL (70-105); POTASSIUM 4.3 MMOL/L (3.6-5.0); SODIUM 141 MMOL/L (135-145)
[2019-11-04 09:46] LABS: ERYTHROCYTE SEDIMENTATION RATE 8 MM/HR (0-30)
[2019-11-05] MEDS: CATHETER FLUSH 10 ML SYR IV PRN ×2 (08:36→08:42)
[2019-11-05] MEDS: cefTRIAXone 2,000 MG/SWFI 20 ML IV PUSH IV SCH ×2 (08:39)
[2019-11-05 08:44] VITALS: BP 162/97
[2019-11-06] MEDS: cefTRIAXone 2,000 MG/SWFI 20 ML IV PUSH IV SCH ×2 (08:36)
[2019-11-06 08:37] VITALS: BP 136/82
[2019-11-07] MEDS: cefTRIAXone 2,000 MG/SWFI 20 ML IV PUSH IV SCH ×2 (08:36)
[2019-11-07] MEDS: CATHETER FLUSH 10 ML SYR IV PRN (08:43)
[2019-11-07 08:45] VITALS: BP 142/90
[2019-11-08] MEDS: cefTRIAXone 2,000 MG/SWFI 20 ML IV PUSH IV SCH ×2 (09:03)
[2019-11-08 09:05] VITALS: BP 160/96
[2019-11-08] MEDS: CATHETER FLUSH 10 ML SYR IV PRN (09:05)
[2019-11-09] MEDS: CATHETER FLUSH 10 ML SYR IV PRN (08:37)
[2019-11-09] MEDS: cefTRIAXone 2,000 MG/SWFI 20 ML IV PUSH IV SCH ×2 (08:37)
[2019-11-09 08:43] VITALS: BP 167/102
[2019-11-10 08:36] VITALS: BP 149/91
[2019-11-10] MEDS: CATHETER FLUSH 10 ML SYR IV PRN (08:36)
[2019-11-10] MEDS: cefTRIAXone 2,000 MG/SWFI 20 ML IV PUSH IV SCH ×2 (08:36)
[2019-11-11] MEDS: cefTRIAXone 2,000 MG/SWFI 20 ML IV PUSH IV SCH ×2 (08:35)
[2019-11-11] MEDS: CATHETER FLUSH 10 ML SYR IV PRN (08:36)
[2019-11-11 08:56] LABS: BASOPHILS % (AUTO) 1 % (0-10); EOSINOPHILS # (AUTO) 0.1 10^3/uL (0.0-0.3); EOSINOPHILS % (AUTO) 2 % (0-10); HEMATOCRIT 39 % (40-54); HEMOGLOBIN 12.3 G/DL (13.3-17.7); LYMPHOCYTES # (AUTO) 0.8 X 10^3 (1.0-4.0); LYMPHOCYTES % (AUTO) 16 % (12-44); MEAN CORPUSCULAR HEMOGLOBIN 30 PG (25-34); MEAN CORPUSCULAR HGB CONC 32 G/DL (32-36); MEAN CORPUSCULAR VOLUME 93 FL (80-99); MEAN PLATELET VOLUME 9.5 FL (7.4-10.4); MONOCYTES # (AUTO) 0.6 X 10^3 (0.0-1.0); MONOCYTES % (AUTO) 11 % (0-12); NEUTROPHILS # (AUTO) 3.8 X 10^3 (1.8-7.8); NEUTROPHILS % (AUTO) 70 % (42-75); PLATELET COUNT 156 10^3/uL (130-400); RED CELL DISTRIBUTION WIDTH 13.6 % (10.0-14.5); WHITE BLOOD COUNT 5.3 10^3/uL (4.3-11.0)
[2019-11-11 09:19] LABS: BUN/CREATININE RATIO 18; CALCIUM 9.3 MG/DL (8.5-10.1); CARBON DIOXIDE 24 MMOL/L (21-32); CHLORIDE 105 MMOL/L (98-107); CREATININE SERUM 0.96 MG/DL (0.60-1.30); GFR ESTIMATED > 60; GLUCOSE 137 MG/DL (70-105); POTASSIUM 4.1 MMOL/L (3.6-5.0); SODIUM 138 MMOL/L (135-145)
[2019-11-11 09:32] LABS: ERYTHROCYTE SEDIMENTATION RATE 5 MM/HR (0-30)
[2019-11-11 09:58] VITALS: BP 157/95
[2019-11-12] MEDS: cefTRIAXone 2,000 MG/SWFI 20 ML IV PUSH IV SCH ×2 (08:35)
[2019-11-12] MEDS: CATHETER FLUSH 10 ML SYR IV PRN (08:35)
[2019-11-12 08:40] VITALS: BP 144/89
[2019-11-13] MEDS: cefTRIAXone 2,000 MG/SWFI 20 ML IV PUSH IV SCH ×2 (08:26)
[2019-11-13] MEDS: CATHETER FLUSH 10 ML SYR IV PRN (08:27)
[2019-11-13 08:35] VITALS: BP 149/96
[2019-11-14] MEDS: CATHETER FLUSH 10 ML SYR IV PRN (08:33)
[2019-11-14] MEDS: cefTRIAXone 2,000 MG/SWFI 20 ML IV PUSH IV SCH ×2 (08:33)
[2019-11-14 08:40] VITALS: BP 147/91
[2019-11-15] MEDS: cefTRIAXone 2,000 MG/SWFI 20 ML IV PUSH IV SCH ×2 (08:40)
[2019-11-15] MEDS: CATHETER FLUSH 10 ML SYR IV PRN (08:41)
[2019-11-15 08:47] VITALS: BP 141/79
[2019-11-16] MEDS: CATHETER FLUSH 10 ML SYR IV PRN (08:39)
[2019-11-16] MEDS: cefTRIAXone 2,000 MG/SWFI 20 ML IV PUSH IV SCH ×2 (08:39)
[2019-11-16 08:42] VITALS: BP 132/87
[2019-11-17] MEDS: CATHETER FLUSH 10 ML SYR IV PRN ×2 (08:40→08:46)
[2019-11-17] MEDS: cefTRIAXone 2,000 MG/SWFI 20 ML IV PUSH IV SCH ×2 (08:40)
[2019-11-17 08:47] VITALS: BP 131/85
[2019-11-18] MEDS: cefTRIAXone 2,000 MG/SWFI 20 ML IV PUSH IV SCH ×2 (08:47)
[2019-11-18] MEDS: CATHETER FLUSH 10 ML SYR IV PRN (08:48)
[2019-11-18 08:58] VITALS: BP 142/88
[2019-11-18 08:59] LABS: BASOPHILS % (AUTO) 0 % (0-10); EOSINOPHILS # (AUTO) 0.1 10^3/uL (0.0-0.3); EOSINOPHILS % (AUTO) 1 % (0-10); HEMATOCRIT 40 % (40-54); HEMOGLOBIN 12.6 G/DL (13.3-17.7); LYMPHOCYTES # (AUTO) 0.9 X 10^3 (1.0-4.0); LYMPHOCYTES % (AUTO) 18 % (12-44); MEAN CORPUSCULAR HEMOGLOBIN 29 PG (25-34); MEAN CORPUSCULAR HGB CONC 32 G/DL (32-36); MEAN CORPUSCULAR VOLUME 93 FL (80-99); MEAN PLATELET VOLUME 9.4 FL (7.4-10.4); MONOCYTES # (AUTO) 0.5 X 10^3 (0.0-1.0); MONOCYTES % (AUTO) 9 % (0-12); NEUTROPHILS # (AUTO) 3.7 X 10^3 (1.8-7.8); NEUTROPHILS % (AUTO) 71 % (42-75); PLATELET COUNT 178 10^3/uL (130-400); RED CELL DISTRIBUTION WIDTH 13.8 % (10.0-14.5); WHITE BLOOD COUNT 5.2 10^3/uL (4.3-11.0)
[2019-11-18 09:16] LABS: BUN/CREATININE RATIO 25; CALCIUM 9.4 MG/DL (8.5-10.1); CARBON DIOXIDE 25 MMOL/L (21-32); CHLORIDE 108 MMOL/L (98-107); CREATININE SERUM 1.02 MG/DL (0.60-1.30); GFR ESTIMATED > 60; GLUCOSE 160 MG/DL (70-105); POTASSIUM 3.6 MMOL/L (3.6-5.0); SODIUM 144 MMOL/L (135-145)
[2019-11-18 09:31] LABS: ERYTHROCYTE SEDIMENTATION RATE 11 MM/HR (0-30)
[2019-11-19 08:20] VITALS: BP 133/94
[2019-11-19] MEDS: cefTRIAXone 2,000 MG/SWFI 20 ML IV PUSH IV SCH ×2 (08:37)
[2019-11-20] MEDS: cefTRIAXone 2,000 MG/SWFI 20 ML IV PUSH IV SCH ×2 (08:43)
[2019-11-20] MEDS: CATHETER FLUSH 10 ML SYR IV PRN (08:43)
[2019-11-20 08:55] VITALS: BP 138/86
[2019-11-21 08:23] VITALS: BP 133/89
[2019-11-21] MEDS: cefTRIAXone 2,000 MG/SWFI 20 ML IV PUSH IV SCH ×2 (08:44)
[2019-11-21] MEDS: CATHETER FLUSH 10 ML SYR IV PRN (08:44)
[2019-11-22 08:40] VITALS: BP 131/82
[2019-11-22] MEDS: cefTRIAXone 2,000 MG/SWFI 20 ML IV PUSH IV SCH ×2 (08:40)
[2019-11-22] MEDS: CATHETER FLUSH 10 ML SYR IV PRN (08:43)
[2019-11-23] MEDS: CATHETER FLUSH 10 ML SYR IV PRN (08:23)
[2019-11-23] MEDS: cefTRIAXone 2,000 MG/SWFI 20 ML IV PUSH IV SCH ×2 (08:23)
[2019-11-23 08:28] VITALS: BP_SYST 131; BP_DIAS 1; BP_DIAS 82
[2019-11-24] MEDS: cefTRIAXone 2,000 MG/SWFI 20 ML IV PUSH IV SCH ×2 (08:31)
[2019-11-24] MEDS: CATHETER FLUSH 10 ML SYR IV PRN (08:31)
[2019-11-24 08:37] VITALS: BP 128/77
--- NOTE | 2019-11-25 08:40 | NUR ---
LABS DRAWN FROM [facility].
[2019-11-25] MEDS: cefTRIAXone 2,000 MG/SWFI 20 ML IV PUSH IV SCH ×2 (08:42)
[2019-11-25] MEDS: CATHETER FLUSH 10 ML SYR IV PRN (08:42)
[2019-11-25 08:50] VITALS: BP 142/91
[2019-11-25 09:02] LABS: BASOPHILS % (AUTO) 1 % (0-10); EOSINOPHILS # (AUTO) 0.1 10^3/uL (0.0-0.3); EOSINOPHILS % (AUTO) 3 % (0-10); HEMATOCRIT 40 % (40-54); HEMOGLOBIN 12.4 G/DL (13.3-17.7); LYMPHOCYTES % (AUTO) 20 % (12-44); MEAN CORPUSCULAR HEMOGLOBIN 29 PG (25-34); MEAN CORPUSCULAR HGB CONC 31 G/DL (32-36); MEAN CORPUSCULAR VOLUME 93 FL (80-99); MEAN PLATELET VOLUME 9.2 FL (7.4-10.4); MONOCYTES # (AUTO) 0.6 X 10^3 (0.0-1.0); MONOCYTES % (AUTO) 12 % (0-12); NEUTROPHILS # (AUTO) 3.1 X 10^3 (1.8-7.8); NEUTROPHILS % (AUTO) 65 % (42-75); PLATELET COUNT 168 10^3/uL (130-400); RED CELL DISTRIBUTION WIDTH 13.3 % (10.0-14.5); WHITE BLOOD COUNT 4.8 10^3/uL (4.3-11.0)
[2019-11-25 09:19] LABS: BUN/CREATININE RATIO 21; CALCIUM 9.3 MG/DL (8.5-10.1); CARBON DIOXIDE 28 MMOL/L (21-32); CHLORIDE 107 MMOL/L (98-107); CREATININE SERUM 1.06 MG/DL (0.60-1.30); GFR ESTIMATED > 60; GLUCOSE 131 MG/DL (70-105); POTASSIUM 4.1 MMOL/L (3.6-5.0); SODIUM 143 MMOL/L (135-145)
[2019-11-25 09:40] LABS: ERYTHROCYTE SEDIMENTATION RATE 8 MM/HR (0-30)
[2019-11-26] MEDS: cefTRIAXone 2,000 MG/SWFI 20 ML IV PUSH IV SCH ×2 (08:25)
[2019-11-26] MEDS: CATHETER FLUSH 10 ML SYR IV PRN (08:25)
[2019-11-26 08:30] VITALS: BP 147/92
[2019-11-27 08:30] VITALS: BP 130/84
[2019-11-27] MEDS: cefTRIAXone 2,000 MG/SWFI 20 ML IV PUSH IV SCH ×2 (08:33)
[2019-11-28] MEDS: CATHETER FLUSH 10 ML SYR IV PRN (08:20)
[2019-11-28] MEDS: cefTRIAXone 2,000 MG/SWFI 20 ML IV PUSH IV SCH ×2 (08:20)
[2019-11-28 08:25] VITALS: BP 156/95
[2019-11-29] MEDS: cefTRIAXone 2,000 MG/SWFI 20 ML IV PUSH IV SCH ×2 (08:16)
[2019-11-29] MEDS: CATHETER FLUSH 10 ML SYR IV PRN (08:17)
[2019-11-29 08:20] VITALS: BP 142/93
[2019-11-30 08:25] VITALS: BP 140/85
[2019-11-30] MEDS: cefTRIAXone 2,000 MG/SWFI 20 ML IV PUSH IV SCH ×2 (08:28)
[2019-12-01 08:20] VITALS: BP 151/87
[~2019-12-01 08:21] MED LIST changes: -HOLD METFORMIN - RECEIVED CONTRAST 20 ML VIAL IV SCH; -IOHEXOL 350 MG/ML 100 ML (OMNIPAQUE 350) VIAL IV ONE; -METO-395 PO; +MTP100TCR PO; -NS 100 ML (IVPB) BAG IV ONE; +SIMV40TA25 PO; +WATER (STERILE) FOR INJECTION 20 ML ONE; +cefTRIAXone 2 GM IV (ROCEPHIN) VIAL ONE; +cefTRIAXone 2,000 MG/SWFI 20 ML IV PUSH IV NR
[2019-12-01] MEDS: CATHETER FLUSH 10 ML SYR IV PRN (08:46)
[2019-12-01] MEDS: cefTRIAXone 2,000 MG/SWFI 20 ML IV PUSH IV SCH ×2 (08:46)
--- NOTE | 2019-12-01 08:59 | NUR ---
this rn phoned gavin morrell at dr[facility] office to get verification of length of picc cathether as i have orders to remove today after treatment. petros stated that 41 cm for length. this rn removed catheter at 0905 and 41cm removed, patient tolerated well. pressure held with not any bleeding.
== END 2019-12-01 09:10 | disposition home or self-care (01) ==
LOC: SDC 08:21
PROVIDERS: ATTEND Specialist
DX: M86.9 Osteomyelitis, unspecified (principal)
CPT/HCPCS: 36415; 80048; 85025; 85027; 85652; 86141; 96374; 96375; 99211

== ENCOUNTER → 2020-07-13 | Outpatient (CLI) | payer MEDICARE, OTHER ==
[~2020-07-13] MED LIST changes: +ASPI-1238 PO; -ASPI-983 PO; +CEFD300C3 PO; +HYDR12.56 PO; +LOSA25TA41 PO; +OSLT75C PO; +RIVA20TA PO; +TMSL.4C PO; +VIT1TABL26 PO; -WATER (STERILE) FOR INJECTION 20 ML ONE; -cefTRIAXone 2 GM IV (ROCEPHIN) VIAL ONE; -cefTRIAXone 2,000 MG/SWFI 20 ML IV PUSH IV NR
[2020-07-13 09:20] LABS: BASOPHILS % (AUTO) 0 % (0-10); EOSINOPHILS # (AUTO) 0.1 10^3/uL (0.0-0.3); EOSINOPHILS % (AUTO) 1 % (0-10); HEMATOCRIT 43 % (40-54); HEMOGLOBIN 13.8 g/dL (13.3-17.7); LYMPHOCYTES # (AUTO) 0.8 10^3/uL (1.0-4.0); LYMPHOCYTES % (AUTO) 9 % (12-44); MEAN CORPUSCULAR HEMOGLOBIN 30 pg (25-34); MEAN CORPUSCULAR HGB CONC 32 g/dL (32-36); MEAN CORPUSCULAR VOLUME 92 fL (80-99); MEAN PLATELET VOLUME 9.2 fL (9.0-12.2); MONOCYTES # (AUTO) 0.8 10^3/uL (0.0-1.0); MONOCYTES % (AUTO) 9 % (0-12); NEUTROPHILS # (AUTO) 7.2 10^3/uL (1.8-7.8); NEUTROPHILS % (AUTO) 81 % (42-75); PLATELET COUNT 210 10^3/uL (130-400); WHITE BLOOD COUNT 8.9 10^3/uL (4.3-11.0)
[2020-07-13 09:41] LABS: ALANINE AMINOTRANSFERASE 21 U/L (0-55); ALBUMIN 4.2 GM/DL (3.2-4.5); ALKALINE PHOSPHATASE 60 U/L (40-136); BILIRUBIN,TOTAL 0.8 MG/DL (0.1-1.0); BUN/CREATININE RATIO 31; CALCIUM 9.6 MG/DL (8.5-10.1); CARBON DIOXIDE 23 MMOL/L (21-32); CHLORIDE 107 MMOL/L (98-107); CREATININE SERUM 1.11 MG/DL (0.60-1.30); GFR ESTIMATED > 60; GLUCOSE 129 MG/DL (70-105); POTASSIUM 4.4 MMOL/L (3.6-5.0); SODIUM 141 MMOL/L (135-145); TOTAL PROTEIN 6.8 GM/DL (6.4-8.2)
== END ==
LOC: ONC 08:53
PROVIDERS: ATTEND Internal Medicine Hematology & Oncology
DX: C18.9 Malignant neoplasm of colon, unspecified (principal); I48.91 Unspecified atrial fibrillation; I25.10 Atherosclerotic heart disease of native coronary artery without angina pectoris; E78.00 Pure hypercholesterolemia, unspecified; I12.9 Hypertensive chronic kidney disease with stage 1 through stage 4 chronic kidney disease, or unspecified chronic kidney disease; N18.30 Chronic kidney disease, stage 3 unspecified
CPT/HCPCS: 80053; 82378; 85025; G0463; 99213

== ENCOUNTER 2021-05-13 10:43 | Emergency (ER) | payer MEDICARE, OTHER ==
[~2021-05-13] VITALS: Ht 170 cm; Wt 90.7 kg
[2021-05-13 10:50] VITALS: BP 155/103
--- NOTE | 2021-05-13 11:06 | ED EENT ---
History of Present Illness General Stated Complaint: TONGUE BLEEDING Source: patient Exam Limitations: no limitations History of Present Illness Date Seen by Provider: May 13, 2021 Time Seen by Provider: 11:02 Initial Comments To ER with reports that he is tongue is bleeding. He bit the left side of his tongue about 3 days ago. He has a bruise to that area but this morning the middle of his tongue had some bleeding that was quite brisk. It stopped about 1 hour prior to arrival to ER. He is on Xarelto. Timing/Duration: this morning Severity: moderate Associated Symptoms: denies symptoms Allergies and Home Medications Allergies Coded Allergies: RUSSELLANo Known Allergies (Verified Allergy, Unknown, 05/07/17) Home Medications Acetaminophen 325 Mg Tablet, 650 MG PO BID, (Reported) TAKES 2 (325MG) TABLETS Aspirin 81 Mg Tablet.dr, 162 MG PO DAILY, (Reported) TAKES 2 (81MG) TABLETS Cefdinir 300 Mg Capsule, 300 MG PO BID, (Reported) FILLED 12-08-2019 #14/7 DAY SUPPLY Fenofibrate 54 Mg Tablet, 54 MG PO HS, (Reported) Finasteride 5 Mg Tablet, 5 MG PO HS, (Reported) Gabapentin 300 Mg Capsule, 300 MG PO HS, (Reported) Hydrochlorothiazide 12.5 Mg Tablet, 12.5 MG PO DAILY, (Reported) Losartan Potassium 25 Mg Tablet, 25 MG PO DAILY, (Reported) Metoprolol Tartrate 100 Mg Tablet, 100 MG PO BID, (Reported) Oseltamivir Phosphate 75 Mg Cap, 75 MG PO BID Prescribed by: TEQUILA WEBSTER on 12/16/19 0923 Rivaroxaban 20 Mg Tablet, 20 MG PO HS, (Reported) Simvastatin 40 Mg Tablet, 40 MG PO HS, (Reported) Tamsulosin HCl 0.4 Mg Cap, 0.4 MG PO DAILY, (Reported) LAST FILLED 08-09-2019 #90/90DS Vit A,C & E/Lutein/Minerals 1 Each Tablet, 1 EACH PO DAILY, (Reported) [Arithrimend] TAB, 2 CAP PO DAILY, (Reported) [Shanika Men's Vit] , 1 TAB PO HS, (Reported) Patient Home Medication List Home Medication List Reviewed: Yes Review of Systems Review of Systems Constitutional: see HPI Eyes: No Symptoms Reported Ears: No Symptoms Reported Nose: no symptoms reported Mouth: see HPI Throat: no symptoms reported Respiratory: no symptoms reported Cardiovascular: no symptoms reported Musculoskeletal: no symptoms reported Skin: no symptoms reported Past Egvpntr-Wtpexi-Fcdqyp Hx Immunizations Up To Date Tetanus Booster (TDap): Less than 5yrs PED Vaccines UTD: No Seasonal Allergies Seasonal Allergies: No Past Medical History Surgeries: Yes (hernia repair x 2, rt shoulder ball replaced, lt total shoulder, R foot sx) Bowel Surgery, Coronary Stent, Gallbladder, Orthopedic Respiratory: Yes (CPAP at NOC, SOB WITH EXERTION R/T CARDIAC) Sleep Apnea Currently Using CPAP: Yes Currently Using BIPAP: No Cardiac: Yes (stents in heart, PACEMAKER) Atrial Fibrillation, Coronary Artery Disease, Heart Attack Neurological: No Reproductive Disorders: No Sexually Transmitted Disease: No HIV/AIDS: No Prostate Problems Gastrointestinal: Yes (history of bowel resection from colon cancer. History of colitis.) Diverticulosis Musculoskeletal: Yes Arthritis, Back Injury, Chronic Back Pain Endocrine: No Cataract Cancer: Yes (hx of colon resection) Colon Psychosocial: No Integumentary: No Blood Disorders: No Adverse Reaction/Blood Tranf: No Family Medical History ALS (amyotrophic lateral sclerosis) 19 FATHER G8 BROTHER G8 SISTER Alzheimer's disease 19 FATHER FH: Alzheimers disease 19 FATHER Myocardial infarction 19 MOTHER Heart Disease, Hypertension Physical Exam Height, Weight, BMI Height: 5'6.00" Weight: 223lbs. 5.0oz. [id number]; 34.49 BMI Method:Stated General Appearance: WD/WN, no apparent distress Eyes: bilateral eye normal inspection, bilateral eye PERRL, bilateral eye EOMI Ears: bilateral ear auricle normal, bilateral ear canal normal, bilateral ear TM normal Nose: normal inspection Mouth/Throat: other (Bruising to the left side of the tongue, there is a nonbleeding hematoma to the middle of the time. Since is not bleeding I am not going to do anything about this.) Neck: non-tender, full range of motion Respiratory: no respiratory distress, no accessory muscle use Neurologic/Psychiatric: alert, normal mood/affect, oriented x 3 Skin: normal color, warm/dry Departure Impression Primary Impression: History of hemorrhage of tongue Disposition: 01 HOME, SELF-CARE Condition: Stable Departure-Patient Inst. Decision time for Depature: 11:06 Referrals: TEQUILA WEBSTER MD (PCP/Family) Primary Care Physician Patient Instructions: NO INSTRUCTIONS GIVEN Add. Discharge Instructions: 1. If this begins to bleed again pinch this area firmly for about 20 minutes and if it fails to stop the bleeding then return to the emergency room. LIZY ALEGRIA APRN May 13, 2021 11:06
== END 2021-05-13 11:35 | disposition home or self-care (01) ==
LOC: EDUNIT# 10:43 → ER 10:45
DX: K14.8 Other diseases of tongue (principal); G47.30 Sleep apnea, unspecified; E78.00 Pure hypercholesterolemia, unspecified; I25.2 Old myocardial infarction; I25.10 Atherosclerotic heart disease of native coronary artery without angina pectoris; I48.91 Unspecified atrial fibrillation; Z79.01 Long term (current) use of anticoagulants; Z79.82 Long term (current) use of aspirin; Z79.899 Other long term (current) drug therapy
CPT/HCPCS: 99282

== ENCOUNTER → 2021-07-12 | Outpatient (CLI) | payer MEDICARE, OTHER ==
[2021-07-12 09:06] LABS: BASOPHILS % (AUTO) 1 % (0-10); EOSINOPHILS # (AUTO) 0.1 10^3/uL (0.0-0.3); EOSINOPHILS % (AUTO) 3 % (0-10); HEMATOCRIT 40 % (40-54); HEMOGLOBIN 12.4 g/dL (13.3-17.7); LYMPHOCYTES # (AUTO) 0.7 10^3/uL (1.0-4.0); LYMPHOCYTES % (AUTO) 16 % (12-44); MEAN CORPUSCULAR HEMOGLOBIN 29 pg (25-34); MEAN CORPUSCULAR HGB CONC 31 g/dL (32-36); MEAN CORPUSCULAR VOLUME 94 fL (80-99); MEAN PLATELET VOLUME 8.9 fL (9.0-12.2); MONOCYTES # (AUTO) 0.5 10^3/uL (0.0-1.0); MONOCYTES % (AUTO) 13 % (0-12); NEUTROPHILS # (AUTO) 2.8 10^3/uL (1.8-7.8); NEUTROPHILS % (AUTO) 67 % (42-75); PLATELET COUNT 134 10^3/uL (130-400); WHITE BLOOD COUNT 4.1 10^3/uL (4.3-11.0)
[2021-07-12 09:30] LABS: ALBUMIN 4.2 GM/DL (3.2-4.5); BILIRUBIN,TOTAL 1.1 MG/DL (0.1-1.0); CALCIUM 9.8 MG/DL (8.5-10.1); CREATININE SERUM 1.09 MG/DL (0.60-1.30); POTASSIUM 4.1 MMOL/L (3.6-5.0); TOTAL PROTEIN 6.8 GM/DL (6.4-8.2)
== END ==
LOC: ONC 08:50
PROVIDERS: ATTEND Internal Medicine Hematology & Oncology
DX: C18.6 Malignant neoplasm of descending colon (principal); I10 Essential (primary) hypertension; E66.9 Obesity, unspecified; Z79.01 Long term (current) use of anticoagulants
CPT/HCPCS: 80053; 82378; 85025; G0463; 99213

== ENCOUNTER 2022-03-29 16:17 | Emergency (ER) | payer MEDICARE, OTHER ==
[~2022-03-29] VITALS: Ht 167 cm; Wt 87.0 kg
[~2022-03-29 16:17] MED LIST changes: -BETH25TA PO; +BETH25TA2 PO
--- NOTE | 2022-03-29 16:40 | ED General ---
General Stated Complaint: COUGH, NASAL DRAINAGE Source of Information: Patient History of Present Illness Date Seen by Provider: Mar 29, 2022 Time Seen by Provider: 16:37 Initial Comments Patient is a 86-year-old male who with history of coronary artery disease, hypertension, diabetes who presents to ED with nasal congestion, sneezing and cough. Symptoms started last night. Patient states he started having some nasal congestion with sinus pressure last night. Reports sneezing. Reports a mild dry cough without any shortness of breath. He denies oxygen at home. Denies of any current chest pain, Brady pain, vomiting, diarrhea. He states his tested positive for COVID yesterday. He is up-to-date on his COVID vaccines. No recent travels or surgeries. Currently on Xarelto, simvastatin, metoprolol, furosemide. Allergies and Home Medications Allergies Coded Allergies: RUSSELLANo Known Allergies (Verified Allergy, Unknown, 05/07/17) Patient Home Medication List Home Medication List Reviewed: Yes Acetaminophen (Acetaminophen) 325 Mg Tablet, 650 MG PO BID, (Reported) Entered as Reported by: IGOR SCHUMACHER on 09/04/16 0927 Aspirin (Aspirin EC) 81 Mg Tablet.dr, 162 MG PO DAILY, (Reported) Entered as Reported by: DESHAUN GRIJALVA on 05/07/17 1027 Cefdinir (Cefdinir) 300 Mg Capsule, 300 MG PO BID, (Reported) Entered as Reported by: CANDY RUBIN on 12/15/19 0959 Fenofibrate (Fenofibrate) 54 Mg Tablet, 54 MG PO HS, (Reported) Entered as Reported by: DESHAUN GRIJALVA on 05/07/17 1014 Finasteride (Finasteride) 5 Mg Tablet, 5 MG PO HS, (Reported) Entered as Reported by: SHAINA CASTRO on 05/07/17 0502 Gabapentin (Gabapentin) 300 Mg Capsule, 300 MG PO HS, (Reported) Entered as Reported by: DESHAUN GRIJALVA on 05/07/17 1014 Hydrochlorothiazide (Hydrochlorothiazide) 12.5 Mg Tablet, 12.5 MG PO DAILY, (Reported) Entered as Reported by: CANDY RUBIN on 12/15/19 0954 Losartan Potassium (Losartan Potassium) 25 Mg Tablet, 25 MG PO DAILY, (Reported) Entered as Reported by: CANDY RUBIN on 12/15/19 0954 Metoprolol Tartrate (Metoprolol Tartrate) 100 Mg Tablet, 100 MG PO BID, (Reported) Entered as Reported by: DESHAUN GRIJALVA on 05/07/17 101 Nirmatrelvir/Ritonavir (Paxlovid 150-100 mg Pack (Eua)) 150 Mg-100 Mg Tablet, 1 EACH PO BID Prescribed by: CESARIO HORNER on 03/29/22 1706 Oseltamivir Phosphate (Tamiflu) 75 Mg Cap, 75 MG PO BID Prescribed by: TEQUILA WEBSTER on 12/16/19 0923 Rivaroxaban (Xarelto Tablet) 20 Mg Tablet, 20 MG PO HS, (Reported) Entered as Reported by: SHAINA CASTRO on 05/07/17 0502 Simvastatin (Simvastatin) 40 Mg Tablet, 40 MG PO HS, (Reported) Entered as Reported by: DESHAUN GRIJALVA on 05/07/17 101 Tamsulosin HCl (Flomax) 0.4 Mg Cap, 0.4 MG PO DAILY, (Reported) Entered as Reported by: CANDY RUBIN on 12/15/19 0954 Vit A,C & E/Lutein/Minerals (Ocuvite with Lutein Tablet) 1 Each Tablet, 1 EACH PO DAILY, (Reported) Entered as Reported by: CANDY RUBIN on 12/15/19 09 [Arithrimend] TAB, 2 CAP PO DAILY, (Reported) Entered as Reported by: CANDY RUBIN on 12/15/19 09 [[facility]ley Men's Vit] , 1 TAB PO HS, (Reported) Entered as Reported by: DESHAUN GRIJALVA on 05/07/17 1017 Review of Systems Review of Systems Constitutional: No chills, No diaphoresis, No malaise, No weakness EENTM: nose congestion; No blurred vision, No double vision, No mouth pain, No throat swelling Respiratory: cough; No short of breath, No stridor, No wheezing Cardiovascular: No chest pain Gastrointestinal: No abdominal pain, No diarrhea, No nausea, No vomiting Genitourinary: No decreased output Musculoskeletal: No back pain, No gout Skin: No change in color, No change in hair/nails All Other Systems Reviewed Negative Unless Noted: Yes Past Ntwficn-Kvmijd-Wrqxef Hx Immunizations Up To Date Tetanus Booster (TDap): Less than 5yrs PED Vaccines UTD: No Seasonal Allergies Seasonal Allergies: No Past Medical History Surgeries: Yes (hernia repair x 2, rt shoulder ball replaced, lt total shoulder, R foot sx) Bowel Surgery, Coronary Stent, Gallbladder, Orthopedic Respiratory: Yes (CPAP at NOC, SOB WITH EXERTION R/T CARDIAC) Sleep Apnea Currently Using CPAP: Yes Currently Using BIPAP: No Cardiac: Yes (stents in heart, PACEMAKER) Atrial Fibrillation, Coronary Artery Disease, Heart Attack Neurological: No Reproductive Disorders: No Sexually Transmitted Disease: No HIV/AIDS: No Prostate Problems Gastrointestinal: Yes (history of bowel resection from colon cancer. History of colitis.) Diverticulosis Musculoskeletal: Yes Arthritis, Back Injury, Chronic Back Pain Endocrine: No Cataract Cancer: Yes (hx of colon resection) Colon Psychosocial: No Integumentary: No Blood Disorders: No Adverse Reaction/Blood Tranf: No Family Medical History ALS (amyotrophic lateral sclerosis) 19 FATHER G8 BROTHER G8 SISTER Alzheimer's disease 19 FATHER FH: Alzheimers disease 19 FATHER Myocardial infarction 19 MOTHER Heart Disease, Hypertension Physical Exam Vital Signs Vital Signs - First Documented 03/29/22 16:30 Temp 36.8 Pulse 78 Resp 20 B/P (MAP) 147/76 (99) Pulse Ox 96 O2 Delivery Room Air Capillary Refill : Height, Weight, BMI Height: 5'6.00" Weight: 223lbs. 5.0oz. 101.040962dw; 31.00 BMI Method:Stated General Appearance: No Apparent Distress, WD/WN Eyes: Bilateral Eye Normal Inspection, Bilateral Eye PERRL, Bilateral Eye EOMI HEENT: PERRL/EOMI, TMs Normal, Normal ENT Inspection, Pharynx Normal Neck: Full Range of Motion, Normal Inspection, Non Tender, Supple Respiratory: Chest Non Tender, Lungs Clear, Normal Breath Sounds, No Accessory Muscle Use Cardiovascular: Regular Rate, Rhythm, No Edema, No Gallop, No JVD Gastrointestinal: Normal Bowel Sounds, No Organomegaly Back: Normal Inspection Extremity: Normal Capillary Refill, Normal Inspection, Normal Range of Motion, Non Tender Neurologic/Psychiatric: Alert, Oriented x3, No Motor/Sensory Deficits, Normal 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, 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 as Tested Skin: Normal Color, Warm/Dry Progress/Results/Core Measures Suspected Sepsis SIRS Temperature: Pulse: Respiratory Rate: Blood Pressure / Mean: Results/Orders Lab Results Laboratory Tests Test 03/29/22 16:30 Range/Units Influenza Type A (RT-PCR) Not Detected Not Detecte Influenza Type B (RT-PCR) Not Detected Not Detecte SARS-CoV-2 RNA (RT-PCR) Detected H Not Detecte My Orders Orders - APRIL ROONEY Covid 19 Inhouse Test (03/29/22 16:28) Influenza A And B By Pcr (03/29/22 16:28) Vital Signs/I&O 03/29/22 03/29/22 16:30 17:22 Temp 36.8 36.8 Pulse 78 78 Resp 20 20 B/P (MAP) 147/76 (99) 147/76 Pulse Ox 96 96 O2 Delivery Room Air Room Air Capillary Refill : Departure Communication (PCP) Patient with sneezing, nasal congestion and dry cough. Patient appears in no acute distress. Vital signs stable. tested positive for COVID. COVID- positive here. Patient with comorbidities. Patient is requesting Paxlovid which his was treated with. Patient is on a statin and finasteride which may be a potential reaction. Discussed stopping the medication until finishing with the medication paxlovid. Renal dose paxlovid was ordered. Does have a pulse ox at home. Denies oxygen at home. Denies any current chest pain, abdominal pain, vomiting or diarrhea. Does not appear toxic. If any worsening symptoms return back to ED for further evaluation. Recommend contact your primary care physician for further evaluation as needed. Impression Primary Impression: COVID-19 Disposition: 01 HOME, SELF-CARE Condition: Stable Departure-Patient Inst. Decision time for Depature: 17:03 Referrals: TEQUILA WEBSTER MD (PCP/Family) Primary Care Physician Patient Instructions: COVID-19 ED Scripts Nirmatrelvir/Ritonavir (Paxlovid 150-100 mg Pack (Eua)) 150 Mg-100 Mg Tablet 1 EACH PO BID, #10 TAB Prov: APRIL ROONEY 03/29/22 APRIL ROONEY Mar 29, 2022 16:40
[2022-03-29] MEDS ORDERED: NIRM1TAB5 PO (17:06)
[2022-03-29 17:22] VITALS: BP 147/76
== END 2022-03-29 17:22 | disposition home or self-care (01) ==
LOC: EDUNIT# 16:17 → ER 16:21
DX: U07.1 COVID-19 (principal); I10 Essential (primary) hypertension; I48.91 Unspecified atrial fibrillation; G47.30 Sleep apnea, unspecified; Z99.89 Dependence on other enabling machines and devices; Z79.01 Long term (current) use of anticoagulants; Z79.899 Other long term (current) drug therapy
CPT/HCPCS: 87636; 99283

== ENCOUNTER → 2022-07-12 | Outpatient (CLI) | payer MEDICARE, OTHER ==
[~2022-07-12] MED LIST changes: +NIRM1TAB5 PO
[2022-07-12 09:25] LABS: BASOPHILS # (AUTO) 0.1 10^3/uL (0.0-0.1); BASOPHILS % (AUTO) 1 % (0-10); EOSINOPHILS # (AUTO) 0.1 10^3/uL (0.0-0.3); EOSINOPHILS % (AUTO) 2 % (0-10); HEMATOCRIT 40 % (40-54); HEMOGLOBIN 12.6 g/dL (13.3-17.7); LYMPHOCYTES # (AUTO) 0.7 10^3/uL (1.0-4.0); LYMPHOCYTES % (AUTO) 11 % (12-44); MEAN CORPUSCULAR HEMOGLOBIN 31 pg (25-34); MEAN CORPUSCULAR HGB CONC 32 g/dL (32-36); MEAN CORPUSCULAR VOLUME 98 fL (80-99); MEAN PLATELET VOLUME 8.7 fL (9.0-12.2); MONOCYTES # (AUTO) 0.5 10^3/uL (0.0-1.0); MONOCYTES % (AUTO) 9 % (0-12); NEUTROPHILS # (AUTO) 4.8 10^3/uL (1.8-7.8); NEUTROPHILS % (AUTO) 77 % (42-75); PLATELET COUNT 154 10^3/uL (130-400); WHITE BLOOD COUNT 6.2 10^3/uL (4.3-11.0)
[2022-07-12 09:45] LABS: ALBUMIN 3.8 GM/DL (3.2-4.5); BILIRUBIN,TOTAL 1.1 MG/DL (0.1-1.0); CALCIUM 9.4 MG/DL (8.5-10.1); CREATININE SERUM 1.07 MG/DL (0.60-1.30); POTASSIUM 4.2 MMOL/L (3.6-5.0); TOTAL PROTEIN 6.3 GM/DL (6.4-8.2)
== END ==
LOC: ONC 09:04
PROVIDERS: ATTEND Internal Medicine Hematology & Oncology
DX: C18.6 Malignant neoplasm of descending colon (principal); I12.9 Hypertensive chronic kidney disease with stage 1 through stage 4 chronic kidney disease, or unspecified chronic kidney disease; N18.30 Chronic kidney disease, stage 3 unspecified; I25.10 Atherosclerotic heart disease of native coronary artery without angina pectoris; E78.00 Pure hypercholesterolemia, unspecified; E66.9 Obesity, unspecified
CPT/HCPCS: 80053; 82378; 85025; G0463; 36415; 99213

== ENCOUNTER 2022-12-07 13:04 | Inpatient (IN) | payer MEDICARE, OTHER ==
[~2022-12-07] VITALS: Ht 167 cm; Wt 96.2 kg
[2022-12-07] VITALS (9 sets, daily range): BP systolic 119–164; BP diastolic 80–108
[2022-12-07] MEDS ORDERED: FUROSEMIDE 40 MG/4 ML INJ (LASIX) IVP ONE (13:45)
[2022-12-07] MEDS ORDERED: LIDOCAINE UROJET 2% GEL 10 ML PKG TOP ONE (13:45)
[2022-12-07 13:52] LABS: BASOPHILS % (AUTO) 1 % (0-10); EOSINOPHILS # (AUTO) 0.1 10^3/uL (0.0-0.3); EOSINOPHILS % (AUTO) 1 % (0-10); HEMATOCRIT 35 % (40-54); HEMOGLOBIN 11.1 g/dL (13.3-17.7); LYMPHOCYTES # (AUTO) 0.8 10^3/uL (1.0-4.0); LYMPHOCYTES % (AUTO) 14 % (12-44); MEAN CORPUSCULAR HEMOGLOBIN 29 pg (25-34); MEAN CORPUSCULAR HGB CONC 32 g/dL (32-36); MEAN CORPUSCULAR VOLUME 91 fL (80-99); MEAN PLATELET VOLUME 9.1 fL (9.0-12.2); MONOCYTES # (AUTO) 1.1 10^3/uL (0.0-1.0); MONOCYTES % (AUTO) 19 % (0-12); NEUTROPHILS # (AUTO) 3.9 10^3/uL (1.8-7.8); NEUTROPHILS % (AUTO) 66 % (42-75); PLATELET COUNT 134 10^3/uL (130-400)
--- NOTE | 2022-12-07 13:56 | ED Cardiac General ---
History of Present Illness General Chief Complaint: Chest Pain Stated Complaint: SOB | CHEST PAIN | PAIN BETWEEN SHOULDER BLADES Nursing Triage Note: CHEST PAIN AND SOA STARTING X2 DAYS. SEEN AT [facility] YESTERDAY AND PUT ON LASIX. Source: patient Exam Limitations: no limitations History of Present Illness Date Seen by Provider: Dec 07, 2022 Time Seen by Provider: 13:17 Initial Comments Here with report of increasing shortness of air over the last couple of days. Seen at [facility] yesterday and had evaluation there. Apparently he was given IV Lasix which did help until about 6 PM last night and then stopped working. He has increased his dose of furosemide to 80 mg twice daily right now. He also reports chills. Patient has to self cath twice daily to relieve urine. He has not had that tested. He is not sure what the chills are from. Denies cough but is definitely dyspneic. Does have history of heart failure and does note swelling of his legs. He follows with Dr. Barrett in [place] for cardiology. Timing/Duration: getting worse, 2-3 days Severity: moderate Location: other (No chest pain but does have dyspnea especially with exertion and orthopnea) Activities at Onset: none Prior CP/Workup: cardiac cath, echocardiography Modifying Factors: worse with other (Activity) NTG SL OPENER: No ASA po OPENER: Yes Associated Systoms: No Chest Pain, No Cough, No Diaphoresis, No Nausea/Vomiting; Shortness of Air, Weakness Allergies and Home Medications Allergies Coded Allergies: NKANo Known Allergies (Verified Allergy, Unknown, 05/07/17) Patient Home Medication List Home Medication List Reviewed: Yes Acetaminophen (Acetaminophen) 325 Mg Tablet, 650 MG PO BID, (Reported) Entered as Reported by: IGOR SCHUMACHER on 09/04/16 0927 Aspirin (Aspirin EC) 81 Mg Tablet.dr, 162 MG PO DAILY, (Reported) Entered as Reported by: DESHAUN GRIJALVA on 05/07/17 1027 Cefdinir (Cefdinir) 300 Mg Capsule, 300 MG PO BID, (Reported) Entered as Reported by: CANDY RUBIN on 12/15/19 0959 Fenofibrate (Fenofibrate) 54 Mg Tablet, 54 MG PO HS, (Reported) Entered as Reported by: DESHAUN GRIJALVA on 05/07/17 1014 Finasteride (Finasteride) 5 Mg Tablet, 5 MG PO HS, (Reported) Entered as Reported by: SHAINA CASTRO on 05/07/17 0502 Gabapentin (Gabapentin) 300 Mg Capsule, 300 MG PO HS, (Reported) Entered as Reported by: DESHAUN GRIJALVA on 05/07/17 101 Hydrochlorothiazide (Hydrochlorothiazide) 12.5 Mg Tablet, 12.5 MG PO DAILY, (Reported) Entered as Reported by: CANDY RUBIN on 12/15/19 09 Losartan Potassium (Losartan Potassium) 25 Mg Tablet, 25 MG PO DAILY, (Reported) Entered as Reported by: CANDY RUBIN on 12/15/19953 Metoprolol Tartrate (Metoprolol Tartrate) 100 Mg Tablet, 100 MG PO BID, (Reported) Entered as Reported by: DESHAUN GRIJALVA on 05/07/17 101 Nirmatrelvir/Ritonavir (Paxlovid 150-100 mg Pack (Eua)) 150 Mg-100 Mg Tablet, 1 EACH PO BID Prescribed by: CESARIO HORNER on 03/29/22 1706 Oseltamivir Phosphate (Tamiflu) 75 Mg Cap, 75 MG PO BID Prescribed by: TEQUILA DUVALL on 12/16/19 0923 Rivaroxaban (Xarelto Tablet) 20 Mg Tablet, 20 MG PO HS, (Reported) Entered as Reported by: SHAINA CASTRO on 05/07/17 050 Simvastatin (Simvastatin) 40 Mg Tablet, 40 MG PO HS, (Reported) Entered as Reported by: DESHAUN GRIJALVA on 05/07/17 101 Tamsulosin HCl (Flomax) 0.4 Mg Cap, 0.4 MG PO DAILY, (Reported) Entered as Reported by: CANDY RUBIN on 12/15/19953 Vit A,C & E/Lutein/Minerals (Ocuvite with Lutein Tablet) 1 Each Tablet, 1 EACH PO DAILY, (Reported) Entered as Reported by: CANDY RUBIN on 12/15/19953 [Arithrimend] TAB, 2 CAP PO DAILY, (Reported) Entered as Reported by: CANDY RUBIN on 12/15/19953 [[place] [employer] Men's Vit] , 1 TAB PO HS, (Reported) Entered as Reported by: DESHAUN GRIJALVA on 05/07/17 1017 Review of Systems Review of Systems Constitutional: see HPI, chills; No fever Respiratory: Denies Cough; Orthopnea, Shortness of Air, SOA With Exertion Cardiovascular: Denies Chest Pain; Edema Gastrointestinal: Denies Nausea, Denies Vomiting Genitourinary: No Symptoms Reported Musculoskeletal: no symptoms reported Skin: no symptoms reported Psychiatric/Neurological: No Symptoms Reported All Other Systems Reviewed Negative Unless Noted: Yes Past Krkpvfr-Gqzunw-Ueovne Hx Patient Social History Tobacco Use?: No Substance use?: No Alcohol Use?: No Immunizations Up To Date Tetanus Booster (TDap): Less than 5yrs PED Vaccines UTD: No First/Initial COVID19 Vaccinat: 10/21/2020 Second COVID19 Vaccination Juvenal: 11/18/2020 Third COVID19 Vaccination Date: 10/21/2020 COVID19 Vaccine Business Consultant: UNKNOWN Seasonal Allergies Seasonal Allergies: No Past Medical History Surgery/Hospitalization HX: heart caths, stents, pacemaker, rt foot, hernia, bi lat shoulders Surgeries: Yes (hernia repair x 2, rt shoulder ball replaced, lt total shoulder, R foot sx) Bowel Surgery, Coronary Stent, Gallbladder, Orthopedic Respiratory: Yes (CPAP at NOC, SOB WITH EXERTION R/T CARDIAC) Sleep Apnea Currently Using CPAP: Yes Currently Using BIPAP: No Cardiac: Yes (stents in heart, PACEMAKER) Atrial Fibrillation, Coronary Artery Disease, Heart Attack Neurological: No Reproductive Disorders: No Sexually Transmitted Disease: No HIV/AIDS: No Prostate Problems Gastrointestinal: Yes (history of bowel resection from colon cancer. History of colitis.) Diverticulosis Musculoskeletal: Yes Arthritis, Back Injury, Chronic Back Pain Endocrine: No Cataract Cancer: Yes (hx of colon resection) Colon Psychosocial: No Integumentary: No Blood Disorders: No Adverse Reaction/Blood Tranf: No Family Medical History Reviewed Nursing Family Hx ALS (amyotrophic lateral sclerosis) 19 FATHER G8 BROTHER G8 SISTER Alzheimer's disease 19 FATHER FH: Alzheimers disease 19 FATHER Myocardial infarction 19 MOTHER Heart Disease, Hypertension Physical Exam Vital Signs Vital Signs - First Documented 12/07/22 13:17 Temp 36.3 Pulse 96 Resp 18 B/P (MAP) 167/112 (130) Pulse Ox 98 O2 Delivery Room Air Capillary Refill : Less Than 3 Seconds Height, Weight, BMI Height: 5'6.00" Weight: 223lbs. 5.0oz. 101.233074yl; 36.00 BMI Method:Stated General Appearance: WD/WN, Mild Distress (After moving to bed but improves after rest), Obese HEENT: PERRL/EOMI, Pharynx Normal Neck: Non Tender, Supple Respiratory: Crackles (Bilateral bases); No Wheezing Cardiovascular: No Murmur, Irregularly Irregular Gastrointestinal: Non Tender, Soft Extremity: Normal Range of Motion, Non Tender Neurologic/Psychiatric: Alert, Oriented x3 Skin: Normal Color, Warm/Dry Progress/Results/Core Measures Results/Orders Lab Results Laboratory Tests Test 12/07/22 13:40 12/07/22 14:20 Range/Units White Blood Count 6.0 4.3-11.0 10^3/uL Red Blood Count 3.84 L 4.30-5.52 10^6/uL Hemoglobin 11.1 L 13.3-17.7 g/dL Hematocrit 35 L 40-54 % Mean Corpuscular Volume 91 80-99 fL Mean Corpuscular Hemoglobin 29 25-34 pg Mean Corpuscular Hemoglobin Concent 32 32-36 g/dL Red Cell Distribution Width 14.4 10.0-14.5 % Platelet Count 134 130-400 10^3/uL Mean Platelet Volume 9.1 9.0-12.2 fL Immature Granulocyte % (Auto) 0 % Neutrophils (%) (Auto) 66 42-75 % Lymphocytes (%) (Auto) 14 12-44 % Monocytes (%) (Auto) 19 H 0-12 % Eosinophils (%) (Auto) 1 0-10 % Basophils (%) (Auto) 1 0-10 % Neutrophils # (Auto) 3.9 1.8-7.8 10^3/uL Lymphocytes # (Auto) 0.8 L 1.0-4.0 10^3/uL Monocytes # (Auto) 1.1 H 0.0-1.0 10^3/uL Eosinophils # (Auto) 0.1 0.0-0.3 10^3/uL Basophils # (Auto) 0.0 0.0-0.1 10^3/uL Immature Granulocyte # (Auto) 0.0 0.0-0.1 10^3/uL Neutrophils % (Manual) 65 % Lymphocytes % (Manual) 16 % Monocytes % (Manual) 17 % Eosinophils % (Manual) 2 % Blood Morphology Comment NORMAL Sodium Level 142 135-145 MMOL/L Potassium Level 4.0 3.6-5.0 MMOL/L Chloride Level 109 H 98-107 MMOL/L Carbon Dioxide Level 23 21-32 MMOL/L Anion Gap 10 5-14 MMOL/L Blood Urea Nitrogen 25 H 7-18 MG/DL Creatinine 1.34 H 0.60-1.30 MG/DL Estimat Glomerular Filtration Rate 51 BUN/Creatinine Ratio 19 Glucose Level 127 H 70-105 MG/DL Calcium Level 9.3 8.5-10.1 MG/DL Corrected Calcium 9.5 8.5-10.1 MG/DL Magnesium Level 2.2 1.6-2.4 MG/DL Total Bilirubin 1.2 H 0.1-1.0 MG/DL Aspartate Amino Transf (AST/SGOT) 23 5-34 U/L Alanine Aminotransferase (ALT/SGPT) 17 0-55 U/L Alkaline Phosphatase 63 40-136 U/L Myoglobin 87.3 10.0-92.0 NG/ML Troponin I 0.028 <0.028 NG/ML C-Reactive Protein High Sensitivity 12.75 H 0.00-0.50 MG/DL B-Type Natriuretic Peptide 577.0 H <100.0 PG/ML Total Protein 6.4 6.4-8.2 GM/DL Albumin 3.8 3.2-4.5 GM/DL Urine Color YELLOW Urine Clarity CLEAR Urine pH 6.0 5-9 Urine Specific [place] 1.025 H 1.016-1.022 Urine Protein 1+ H NEGATIVE Urine Glucose (UA) NEGATIVE NEGATIVE Urine Ketones NEGATIVE NEGATIVE Urine Nitrite POSITIVE H NEGATIVE Urine Bilirubin NEGATIVE NEGATIVE Urine Urobilinogen 0.2 < = 1.0 MG/DL Urine Leukocyte Esterase NEGATIVE NEGATIVE Urine RBC (Auto) NEGATIVE NEGATIVE Urine RBC RARE /HPF Urine WBC 2-5 /HPF Urine Crystals NONE /LPF Urine Bacteria LARGE H /HPF Urine Casts NONE /LPF Urine Mucus NEGATIVE /LPF Urine Culture Indicated YES My Orders Orders - SARMAD BETANCOURT MD Bnp [place] (12/07/22 13:44) Cbc With Automated Diff (12/07/22 13:44) Comprehensive Metabolic Panel (12/07/22 13:44) Hs C Reactive Protein (12/07/22 13:44) Magnesium (12/07/22 13:44) Troponin I [place] (12/07/22 13:44) Ua Culture If Indicated (12/07/22 13:44) Myoglobin Serum (12/07/22 13:44) Chest 1 View, Ap/Pa Only (12/07/22 13:44) Ed Iv/Invasive Line Start (12/07/22 13:44) Ekg Tracing (12/07/22 13:44) Catheter(Urinary) Insert & Ass 03,15 (12/07/22 13:44) Lidocaine 2% (Urojet) (Xylocaine Urojet) (12/07/22 13:45) Furosemide Injection (Lasix Injection) (12/07/22 13:45) Manual Differential (12/07/22 13:40) Urine Culture (12/07/22 14:20) Blood Culture (12/07/22 15:18) Vital Signs Adult Sepsis Patie Q15M (12/07/22 15:18) Remove Rings In Anticipation O (12/07/22 15:18) Lactic Acid Analyzer (12/07/22 15:18) Ceftriaxone 1 Gm Pre-Mix (Rocephin 1 Gm (12/07/22 15:18) Echo W Doppler/Color Flow (12/07/22 15:33) Medications Given in ED Current Medications Medications Dose Ordered Sig/Partha Route Start Time Stop Time Status Last Admin Dose Admin Furosemide 80 mg ONCE ONCE IVP 12/07/22 13:45 12/07/22 13:47 DC 12/07/22 14:08 80 MG Lidocaine HCl 10 ml ONCE ONCE TOP 12/07/22 13:45 12/07/22 13:47 DC 12/07/22 14:08 10 ML Vital Signs/I&O 12/07/22 13:17 Temp 36.3 Pulse 96 Resp 18 B/P (MAP) 167/112 (130) Pulse Ox 98 O2 Delivery Room Air Blood Pressure Mean: 130 Progress Progress Note : Progress Note Seen and evaluated. IV, labs including CBC, CMP, troponin, BNP is elevated indicating increased left ventricular end diastolic dilatation which may be seen in CHF. And UA ordered. UA ordered due to the fact that he has to straight cath twice daily and he has been having chills that he is not sure why. Denies cough or upper respiratory symptoms so we will evaluate for urinary tract infection. We will go ahead and place Kumari catheter as we are going to give Lasix 80 mg IV now and he will have to self cath multiple times which is going to increase his risk for infection and we need to monitor output to evaluate for improvement. This was discussed with patient and family who agree. Differential diagnosis includes congestive heart failure acute exacerbation, electrolyte abnormality, UTI 1400: Chest x-ray does show findings concerning for heart failure including cardiomegaly and vascular congestion. 1429: Labs reviewed and show CBC with normal white count and slightly low hemoglobin with normal platelets. CMP essentially normal electrolytes with slight elevated serum creatinine at 1.34 and glucose at 127. Mag is low at 1.2. CRP is elevated at greater than 12 and BNP is elevated at 577. Pending UA. Monitor patient. 1519: I did discuss the case with Dr. Duvall. Given the urinary tract infection findings, we will go ahead and do blood cultures and lactic acid and then initiate Rocephin 1 g IV afterwards. He does not have findings of significant sepsis with normal white count and is not hypotensive. That being said we will cover and have sepsis protocol in process. She accepts patient for admission to the hospital, inpatient status. I did discuss the case with Dr Izquierdo at 1537 and he accepts patient for consult on consult for cardiology. All findings concerns discussed with patient and family who agree with plan. Initial ECG Impression Date: Dec 07, 2022 Initial ECG Impression Time: 13:18 Initial ECG Rate: 1318 Initial ECG Rhythm: A Fib/Flutter Initial ECG Impression: Atrial Fibrillation Comment Atrial fibrillation with controlled rate at 100. Left axis deviation. Left bundle branch block noted. No evidence of ST elevation [place]. Interpreted by me. Diagnostic Imaging Diagonstic Imaging: Xray Plain Films/CT/US/NM/MRI: chest Comments [facility]. [place], [place] NAME: MICHELINE ORTIZ [facility] REC#: [id number] PT STATUS: REG ER : 1935 PHYSICIAN: SARMAD BETANCOURT MD ADMIT DATE: 12/07/22/ER Draft Date of Exam:12/07/22 CHEST 1 VIEW, AP/PA ONLY EXAM: CHEST 1 VIEW, AP/PA ONLY INDICATION: Chest pain. Shortness of air. COMPARISON: 12/15/2019. FINDINGS: Cardiac pacer. Cardiomegaly. Mild bibasilar atelectasis or infiltrate. No pleural effusion or pneumothorax. No acute-appearing osseous findings. IMPRESSION: 1. Cardiomegaly with normal central pulmonary vascularity. 2. Mild atelectasis or infiltrate in the lung bases. This is similar to 12/14/2021. Dictated on workstation # [id number] Dict: 12/07/22 1408 Trans: 12/07/22 1410 [facility] [id number] Interpreted by: FEDE BERRY MD Electronically signed by: Departure Communication (Admissions) Time/Spoke to Admitting Phy: 15:19 Time/Spoke to Consulting Phy: 15:37 Impression Primary Impression: Acute on chronic heart failure Qualified Codes: I50.9 - Heart failure, unspecified Additional Impressions: Urinary tract infection Qualified Codes: N30.00 - Acute cystitis without hematuria Dyspnea on exertion Disposition: ADMITTED INPATIENT Condition: Stable Admissions Decision to Admit Reason: Admit from ER (General) Decision to Admit/Date: Dec 07, 2022 Time/Decision to Admit Time: 15:19 Departure-Patient Inst. Referrals: TEQUILA DUVALL MD (PCP/Family) Primary Care Physician SARMAD BETANCOURT MD Dec 07, 2022 13:56
[2022-12-07 13:58] LABS: ALBUMIN 3.8 GM/DL (3.2-4.5)
[2022-12-07 13:59] LABS: CALCIUM 9.3 MG/DL (8.5-10.1)
[2022-12-07 14:00] LABS: TOTAL PROTEIN 6.4 GM/DL (6.4-8.2)
[2022-12-07 14:02] LABS: BILIRUBIN,TOTAL 1.2 MG/DL (0.1-1.0)
[2022-12-07 14:04] LABS: CREATININE SERUM 1.34 MG/DL (0.60-1.30)
[2022-12-07 14:07] LABS: MAGNESIUM 2.2 MG/DL (1.6-2.4)
--- NOTE | 2022-12-07 14:10 | Diagnostic Imaging Report ---
EXAM: CHEST 1 VIEW, AP/PA ONLY INDICATION: Chest pain. Shortness of air. COMPARISON: 12/15/2019. FINDINGS: Cardiac pacer. Cardiomegaly. Mild bibasilar atelectasis or infiltrate. No pleural effusion or pneumothorax. No acute-appearing osseous findings. IMPRESSION: 1. Cardiomegaly with normal central pulmonary vascularity. 2. Mild atelectasis or infiltrate in the lung bases. This is similar to 12/14/2021. Dictated by: Dictated on workstation # [id number]
[2022-12-07 14:12] LABS: EOSINOPHILS % (MANUAL) 2 %; LYMPHOCYTES % (MANUAL) 16 %; MONOCYTES % (MANUAL) 17 %; NEUTROPHILS % (MANUAL) 65 %; RBC MORPH NORMAL
[2022-12-07 14:35] LABS: BILIRUBIN,URINE NEGATIVE (NEGATIVE); CLARITY,URINE CLEAR; COLOR,URINE YELLOW; GLUCOSE, URINE (UA) NEGATIVE (NEGATIVE); KETONES,URINE NEGATIVE (NEGATIVE); LEUKOCYTE ESTERASE ,URINE NEGATIVE (NEGATIVE); NITRITE,URINE POSITIVE (NEGATIVE); PROTEIN,URINE 1+ (NEGATIVE)
[2022-12-07 14:45] LABS: BACTERIA,URINE LARGE /HPF; RBC,URINE RARE /HPF
[2022-12-07] MEDS ORDERED: cefTRIAXone 1 GM PRE-MIX 50 ML IV STA (15:18)
[2022-12-07] MEDS ORDERED: CATHETER FLUSH 10 ML SYR IVP PRN (16:45)
[2022-12-07] MEDS: RIVAROXABAN 15 MG TABLET (XARELTO) PO SCH (18:32)
[2022-12-07] MEDS: meTOprolol TARTRATE 50 MG (LOPRESSOR) TAB PO SCH (19:44)
[2022-12-07] MEDS: FUROSEMIDE 40 MG/4 ML INJ (LASIX) IV SCH (19:45)
[2022-12-07] MEDS: CATHETER FLUSH 10 ML SYR IVP SCH (19:49)
--- NOTE | 2022-12-07 20:07 | History & Physical ---
History of Present Illness History of Present Illness Reason for visit/HPI Pt is an 87 y/o male who is known to me from clinic. He presented to the hospital today with complaint of chest pain and shortness of breath. He had been having increased swelling and shortness of breath. He went to the [place] ER, was treated with extra lasix and sent home to his [place] apartment, but then his symptoms acutely worsened and family requested transport to [facility]. This evening, Laron states that he is feeling better, tolerating his CPAP without issue, feels as if his swelling has improved Date of Admission Dec 07, 2022 at 16:12 Date Seen by a Provider: Dec 07, 2022 Time Seen by a Provider: 20:00 I consulted on this patient on 12/07/22 20:07 Attending Physician Tequila Duvall MD Admitting Physician Admitting Physician: Tequila Duvall MD Attending Physician: Tequila Duvall MD Consult Allergies and Home Medications Allergies Coded Allergies: Nasra Known Allergies (Verified Allergy, Unknown, 05/07/17) Patient Home Medication List Home Medication List Reviewed: Yes Acetaminophen (Tylenol Extra Strength) 500 Mg Tablet, 1,000 MG PO BID, (Reported) Entered as Reported by: CANDY RUBIN on 12/08/221527 Last Action: New Order Albuterol Sulfate (Ventolin Hfa) 1 Puff Puff, 2 PUFF INH Q4H PRN for SHORTNESS OF BREATH, (Reported) Entered as Reported by: CANDY RUBIN on 12/08/221527 Last Action: New Order Aspirin (Aspirin EC) 81 Mg Tablet.dr, 81 MG PO DAILY, (Reported) Entered as Reported by: DESHAUN GRIJALVA on 05/07/17 1027 Last Action: Edited Cyclosporine (Restasis) 0.05 % Drope[place], 1 DROP OU BID, (Reported) Entered as Reported by: CANDY RUBIN on 12/08/221527 Last Action: New Order Diclofenac Sodium (Diclofenac Sodium) 1 % Gel..gram., 1 APPLIC TP Q6H PRN for PAIN-BREAKTHROUGH, (Reported) Entered as Reported by: CANDY RUIBN on 12/08/221527 Last Action: New Order Docusate Sodium (Docusate Sodium) 100 Mg Capsule, 200 MG PO HS, (Reported) Entered as Reported by: CANDY RUBIN on 12/08/221527 Last Action: New Order Fenofibrate (Fenofibrate) 54 Mg Tablet, 54 MG PO DAILY, (Reported) Entered as Reported by: DESHAUN GRIJALVA on 05/07/171013 Last Action: Edited Finasteride (Finasteride) 5 Mg Tablet, 5 MG PO HS, (Reported) Entered as Reported by: SHAINA CASTRO on 05/07/17501 Last Action: Last Taken Edited Fluticasone Propionate (Fluticasone Propionate) 50 Mcg/Actuation [place].susp, 1 SPRAY NSEACH DAILY PRN for CONGESTION, (Reported) Entered as Reported by: CANDY RUBIN on 12/08/221527 Last Action: New Order Gabapentin (Neurontin) 300 Mg Capsule, 300 MG PO HS, (Reported) Entered as Reported by: CANDY RUBIN on 12/08/221527 Last Action: New Order Levalbuterol Tartrate (Levalbuterol Tartrate Hfa) 45 Mcg/Actuation Hfa.aer.ad, 2 PUFF INH Q6H PRN for SHORTNESS OF BREATH, (Reported) Entered as Reported by: CANDY RUBIN on 12/08/221527 Last Action: New Order Losartan Potassium (Losartan Potassium) 100 Mg Tablet, 100 MG PO DAILY, (Reported) Entered as Reported by: CANDY RUBIN on 12/08/221527 Last Action: New Order Metoprolol Tartrate (Metoprolol Tartrate) 100 Mg Tablet, 100 MG PO BID, (Reported) Entered as Reported by: DESHAUN GRIJALVA on 05/07/171013 Last Action: Last Taken Edited Multivitamin with Minerals (One Daily Plus Minerals) 1 Each Tablet, 1 EACH PO, (Reported) Entered as Reported by: CANDY RUBIN on 12/08/221527 Last Action: New Order Potassium Chloride (K-Tab ER) 10 Meq Tablet.er, 10 MEQ PO DAILY, (Reported) Entered as Reported by: CANDY RUBIN on 12/08/221527 Last Action: New Order Rivaroxaban (Xarelto Tablet) 20 Mg Tablet, 20 MG PO HS, (Reported) Entered as Reported by: SHAINA CASTRO on 05/07/17501 Last Action: Last Taken Edited Simvastatin (Simvastatin) 40 Mg Tablet, 40 MG PO HS, (Reported) Entered as Reported by: DESHAUN GRIJALVA on 05/07/17 1014 Last Action: Last Taken Edited Tamsulosin HCl (Flomax) 0.4 Mg Cap, 0.8 MG PO DAILY, (Reported) Entered as Reported by: CANDY RUBIN on 12/08/221527 Last Action: New Order Vit A,C & E/Lutein/Minerals (Ocuvite with Lutein Tablet) 1 Each Tablet, 1 EACH PO DAILY, (Reported) Entered as Reported by: CANDY RUBIN on 12/15/19953 Last Action: Last Taken Edited [Arithrimend] TAB, 2 CAP PO DAILY, (Reported) Entered as Reported by: CANDY RUBIN on 12/15/19953 Last Action: Last Taken Edited [Mens Multi W/Mineral] , 1 PACKET PO HS, (Reported) Entered as Reported by: CANDY RUBIN on 12/08/221527 Last Action: New Order Discontinued Medications Acetaminophen (Acetaminophen) 325 Mg Tablet, 650 MG PO BID, (Reported) Discontinued Reason: Duplicate Order Entered as Reported by: IGOR SCHUMACHER on 09/04/16926 Last Action: Discontinued Cefdinir (Cefdinir) 300 Mg Capsule, 300 MG PO BID, (Reported) Discontinued Reason: Duplicate Order Entered as Reported by: CANDY RUBIN on 12/15/19958 Last Action: Discontinued Gabapentin (Gabapentin) 300 Mg Capsule, 300 MG PO HS, (Reported) Discontinued Reason: Duplicate Order Entered as Reported by: DESHAUN GRIJALVA on 05/07/17 1014 Last Action: Discontinued Hydrochlorothiazide (Hydrochlorothiazide) 12.5 Mg Tablet, 12.5 MG PO DAILY, (Reported) Discontinued Reason: Duplicate Order Entered as Reported by: CANDY RUBIN on 12/15/19953 Last Action: Discontinued Losartan Potassium (Losartan Potassium) 25 Mg Tablet, 25 MG PO DAILY, (Reported) Discontinued Reason: Duplicate Order Entered as Reported by: CANDY RUBIN on 12/15/19953 Last Action: Discontinued Nirmatrelvir/Ritonavir (Paxlovid 150-100 mg Pack (Eua)) 150 Mg-100 Mg Tablet, 1 EACH PO BID Discontinued Reason: Duplicate Order Prescribed by: CESARIO HORNER on 03/29/22 1706 Last Action: Discontinued Oseltamivir Phosphate (Tamiflu) 75 Mg Cap, 75 MG PO BID Discontinued Reason: Duplicate Order Prescribed by: TEQUILA DUVALL on 12/16/19 0923 Last Action: Discontinued Tamsulosin HCl (Flomax) 0.4 Mg Cap, 0.4 MG PO DAILY, (Reported) Discontinued Reason: Duplicate Order Entered as Reported by: CANDY RUBIN on 12/15/19 0954 Last Action: Discontinued [Seble [facility]ley Men's Vit] , 1 TAB PO HS, (Reported) Discontinued Reason: Duplicate Order Entered as Reported by: DESHAUN GRIJALVA on 05/07/17 1017 Last Action: Discontinued Past Zuacoit-Lnwxiq-Tlxvtk Hx Patient Social History Marrital Status: Living Status: lives at [facility] Employed/Student: retired Tobacco Use?: No Smoking Status: Never a Smoker Smokeless Tobacco Frequency: Never a User Use of E-Cig and/or Vaping dev: No Substance use?: No Alcohol Use?: No Pt feels they are or have been: No Immunizations Up To Date Date of Influenza Vaccine: Jul 01, 2019 First/Initial COVID19 Vaccinat: 10/21/2020 Second COVID19 Vaccination Juvenal: 11/18/2020 Tetanus Booster (TDap): Unknown Hepatitis A: No Hepatitis B: No PED Vaccines UTD: No Date of Pneumonia Vaccine: Jul 15, 2015 Seasonal Allergies Seasonal Allergies: No Current Status Advance Directives: No Primary Language: Maldivian Preferred Spoken Language: Maldivian Is interpretation needed?: No Sensory deficits: Hearing impairment Implanted or Applied Medical D: Pacemaker, Stents Past Medical History Surgeries: Bowel Surgery, Coronary Stent, Gallbladder, Orthopedic Sleep Apnea Currently Using CPAP: Yes Currently Using BIPAP: No Atrial Fibrillation, Coronary Artery Disease, Heart Attack Sexually Transmitted Disease: No HIV/AIDS: No Prostate Problems Diverticulosis Arthritis, Back Injury, Chronic Back Pain Cataract Colon Blood Disorders: No Adverse Reaction/Blood Tranf: No Family Medical History Reviewed Nursing Family Hx ALS (amyotrophic lateral sclerosis) 19 FATHER G8 BROTHER G8 SISTER Alzheimer's disease 19 FATHER FH: Alzheimers disease 19 FATHER Myocardial infarction 19 MOTHER Heart Disease, Hypertension Review of Systems Constitutional: No chills, No fever; malaise, weakness EENTM: No hoarseness, No mouth pain, No throat pain, No throat swelling Respiratory: No cough; dyspnea on exertion, short of breath Cardiovascular: chest pain, edema, Hx of Intervention; No palpitations Gastrointestinal: abdominal pain (RLQ, LLQ) Genitourinary: dysuria, frequency, other (retention - self catheterizes) Skin: no symptoms reported Psychiatric/Neurological: Denies Anxiety, Denies Depressed; Weakness (intermittent) All Other Systems Reviewed Negative Unless Noted: Yes Physical Exam Vital Signs Vital Signs - First Documented 12/07/22 13:17 Temp 36.3 Pulse 96 Resp 18 B/P (MAP) 167/112 (130) Pulse Ox 98 O2 Delivery Room Air Capillary Refill : Less Than 3 Seconds Height, Weight, BMI Height: 5'6.00" Weight: 223lbs. 5.0oz. [id number]; 36.57 BMI Method:Stated General Appearance: No Apparent Distress, WD/WN, Other (cpap in place on pt's face) HEENT: PERRL/EOMI, Pharynx Normal Neck: Full Range of Motion, Supple Respiratory: Chest Non Tender, Lungs Clear, Normal Breath Sounds, No Accessory Muscle Use, No Respiratory Distress Cardiovascular: Regular Rate, Rhythm Gastrointestinal: Normal Bowel Sounds, Soft, Other (ttp over lower abdomen) Extremity: Normal Capillary Refill, Non Tender, No Calf Tenderness Neurologic/Psychiatric: Alert, Oriented x3, No Motor/Sensory Deficits, Normal Mood/Affect Skin: Normal Color, Warm/Dry Lymphatic: No Adenopathy Assessment/Plan Assessment and Plan Urinary tract infection Urinary retention - Chronic Hypertension Dyspnea on Exertion History of CAD with CHF Edema Atrial fibrillation Sleep Apnea Urinary tract infection due to repeated self catheterizations - Urinary rete ntion - Chronic - continue with prn self-cath - rx for rocephin - iv - pt to be monitored, culture report will be pending for the next 24 - 48 hours. Hypertension - resume home regimen Dyspnea on Exertion monitor symptoms History of CAD with CHF - IV lasix - defer to cardiology Edema - pt on iv lasix, edema resolved as of this evening Atrial fibrillation - resume anticoagulation - resume betablocker therapy Sleep Apnea - pt on CPAP dvt prophylaxis with scd's and NOAC gi prophylaxis with ppi Admission Diagnosis Urinary tract infection Urinary retention - Chronic Hypertension Dyspnea on Exertion History of CAD with CHF Edema Atrial fibrillation Sleep Apnea Admission Status: Inpatient Order (span 2 midnights) Reason for Inpatient Admission: inpatient admission for UTI, chest pain, edema - will require at least 48 hours in the hospital for treatment and monitoring of urine culture Clinical Quality Measures AMI/AHF: ASA po Prior to arrival: Yes TEQUILA DUVALL MD Dec 07, 2022 20:07
--- NOTE | 2022-12-07 20:34 | Consultation-Cardiology ---
HPI-Cardiology Cardiology Consultation: Date of Consultation 12/07/22 Time Seen by a Provider: 20:20 Date of Admission Attending Physician Tequila Duvall MD Admitting Physician Admitting Physician: Tequila Duvall MD Attending Physician: Tequila Duvall MD Consulting Physician AILIN JONES MD, MA, FACP, FACC, FSCAI, CCDS Physician requesting consult: Dr Duvall HPI: Chief Complaint: Reason for Card consult: Shortness of breath 87 yo man with increasing shortness of breath for several days to weeks. This has persisted despite increase in oral diuretics. Denies cp or palp or syncope or n/v/d. Notes bilat leg swelling. Has chronic difficulty with urination and self-caths at least twice a day Review of Systems-Cardiology Review of Systems Constitutional: malaise; No weight loss, No weight gain Eyes: No vision change Ears/Nose/Throat: No ear discharge, No nasal drainage, No recent hearing loss Respiratory: As described under HPI Cardiovascular: As described under HPI Gastrointestinal: No diarrhea, No nausea, No vomiting Genitourinary: As described under HPI Musculoskeletal: back pain (chronic) Skin: No rash, No ulcerations Psychiatric/Neurological: No seizure, No focal weakness, No syncope Hematologic: No bleeding abnormalities All Other Systems Reviewed Negative Unless Noted: Yes WFE-Nmtqbl-Wubtqm Hx Patient Social History Smoking Status: Never a Smoker 2nd Hand Smoke Exposure: No Have you traveled recently?: No Alcohol Use?: No Pt feels they are or have been: No Immunizations Up To Date Tetanus Booster (TDap): Less than 5yrs Date of Pneumonia Vaccine: Jul 15, 2015 Date of Influenza Vaccine: Jul 01, 2019 Past Medical History PMH As described under Assessment. Family Medical History Family History: ALS (amyotrophic lateral sclerosis) 19 FATHER G8 BROTHER G8 SISTER Alzheimer's disease 19 FATHER FH: Alzheimers disease 19 FATHER Myocardial infarction 19 MOTHER Allergies and Home Medications Allergies Coded Allergies: NKANo Known Allergies (Verified Allergy, Unknown, 05/07/17) Patient Home Medication List Home Medication List Reviewed: Yes Acetaminophen (Acetaminophen) 325 Mg Tablet, 650 MG PO BID, (Reported) Entered as Reported by: IGOR SCHUMACHER on 09/04/16 0967 Last Action: Continued Aspirin (Aspirin EC) 81 Mg Tablet., 162 MG PO DAILY, (Reported) Entered as Reported by: DESHAUN GRIJALVA on 05/07/17 1027 Last Action: Continued Cefdinir (Cefdinir) 300 Mg Capsule, 300 MG PO BID, (Reported) Entered as Reported by: CANDY RUBIN on 12/15/19 0959 Last Action: Reviewed Fenofibrate (Fenofibrate) 54 Mg Tablet, 54 MG PO HS, (Reported) Entered as Reported by: DESHAUN GRIJALVA on 05/07/17 1014 Last Action: Held Finasteride (Finasteride) 5 Mg Tablet, 5 MG PO HS, (Reported) Entered as Reported by: SHAINA CASTRO on 05/07/17 0502 Last Action: Continued Gabapentin (Gabapentin) 300 Mg Capsule, 300 MG PO HS, (Reported) Entered as Reported by: DESHAUN GRIJALVA on 05/07/17 101 Hydrochlorothiazide (Hydrochlorothiazide) 12.5 Mg Tablet, 12.5 MG PO DAILY, (Reported) Entered as Reported by: CANDY RUBIN on 12/15/19 0954 Last Action: Held Losartan Potassium (Losartan Potassium) 25 Mg Tablet, 25 MG PO DAILY, (Reported) Entered as Reported by: CANDY RUBIN on 12/15/1954 Last Action: Reviewed Metoprolol Tartrate (Metoprolol Tartrate) 100 Mg Tablet, 100 MG PO BID, (Reported) Entered as Reported by: DESHAUN GRIJALVA on 05/07/17 101 Last Action: Converted Nirmatrelvir/Ritonavir (Paxlovid 150-100 mg Pack (Eua)) 150 Mg-100 Mg Tablet, 1 EACH PO BID Prescribed by: CESARIO HORNER on 03/29/22 1706 Oseltamivir Phosphate (Tamiflu) 75 Mg Cap, 75 MG PO BID Prescribed by: TEQUILA DUVALL on 12/16/19 0923 Rivaroxaban (Xarelto Tablet) 20 Mg Tablet, 20 MG PO HS, (Reported) Entered as Reported by: SHAINA CASTRO on 05/07/17 0502 Simvastatin (Simvastatin) 40 Mg Tablet, 40 MG PO HS, (Reported) Entered as Reported by: DESHAUN GRIJALVA on 05/07/17 1014 Last Action: Held Tamsulosin HCl (Flomax) 0.4 Mg Cap, 0.4 MG PO DAILY, (Reported) Entered as Reported by: CANDY RUBIN on 12/15/19953 Vit A,C & E/Lutein/Minerals (Ocuvite with Lutein Tablet) 1 Each Tablet, 1 EACH PO DAILY, (Reported) Entered as Reported by: CANDY RUBIN on 12/15/19953 [Arithrimend] TAB, 2 CAP PO DAILY, (Reported) Entered as Reported by: CANDY RUBIN on 12/15/19953 [Seble Reyna's Vit] , 1 TAB PO HS, (Reported) Entered as Reported by: DESHAUN GRIJALVA on 05/07/17 1017 Physical Exam-Cardiology Physical Exam Vital Signs/I&O 12/07/22 12/07/22 12/07/22 12/07/22 13:17 16:34 17:04 17:29 Temp 36.3 36.4 36.4 37.0 Pulse 96 87 87 92 Resp 18 20 20 20 B/P (MAP) 167/112 (130) 153/94 (113) 157/99 (118) 150/88 (108) Pulse Ox 98 96 95 96 O2 Delivery Room Air Room Air Room Air Room Air 12/07/22 12/07/22 12/07/22 12/07/22 17:31 17:48 18:05 18:18 Temp 36.5 36.1 37.2 36.5 Pulse 86 93 90 98 Resp 20 20 20 20 B/P (MAP) 152/90 (110) 156/95 (115) 148/99 (115) 164/102 (122) Pulse Ox 97 96 95 95 O2 Delivery Room Air Room Air Room Air Room Air 12/07/22 12/07/22 18:19 19:41 Temp 36.4 Pulse 88 Resp 20 B/P (MAP) 145/108 (120) Pulse Ox 96 O2 Delivery Room Air NIV CPAP Capillary Refill : Less Than 3 Seconds Constitutional: AAO x 3, well-developed, well-nourished HEENT: EOMI, hearing is well preserved; No xanthelasmas are seen Neck: carotid pulses are 2 + bilaterally, with good upstrokes Respiratory: No accessory muscle use; chest expansion is symmetric, chest is bilaterally symmetric, other (fair to good, bilateral air entry, diminished at the base, bibasilar rales) Cardiovascular: irregularly irregular, S1 and S2, systolic murmur (soft MU at card base) Gastrointestinal: No tender; soft; No guarding, No rebound; audible bowel sounds Extremities: swelling (mild to mod leg swelling); No clubbing, No cyanosis Neurologic/Psychiatric: oriented x 3, other (moves all limbs) Skin: No rash on exposed areas, No ulcerations on exposed areas Data Review Labs Laboratory Tests 12/07/22 13:40: White Blood Count 6.0, Red Blood Count 3.84L, Hemoglobin 11.1L, Hematocrit 35L, Mean Corpuscular Volume 91, Mean Corpuscular Hemoglobin 29, Mean Corpuscular Hemoglobin Concent 32, Red Cell Distribution Width 14.4, Platelet Count 134, Mean Platelet Volume 9.1, Immature Granulocyte % (Auto) 0, Neutrophils (%) (Auto) 66, Lymphocytes (%) (Auto) 14, Monocytes (%) (Auto) 19H, Eosinophils (%) (Auto) 1, Basophils (%) (Auto) 1, Neutrophils # (Auto) 3.9, Lymphocytes # (Auto) 0.8L, Monocytes # (Auto) 1.1H, Eosinophils # (Auto) 0.1, Basophils # (Auto) 0.0, Immature Granulocyte # (Auto) 0.0, Neutrophils % (Manual) 65, Lymphocytes % (Manual) 16, Monocytes % (Manual) 17, Eosinophils % (Manual) 2, Blood Morphology Comment NORMAL, Sodium Level 142, Potassium Level 4.0, Chloride Level 109H, Carbon Dioxide Level 23, Anion Gap 10, Blood Urea Nitrogen 25H, Creatinine 1.34H , Estimat Glomerular Filtration Rate 51, BUN/Creatinine Ratio 19, Glucose Level 127H, Calcium Level 9.3, Corrected Calcium 9.5, Magnesium Level 2.2, Total Bilirubin 1.2H, Aspartate Amino Transf (AST/SGOT) 23, Alanine Aminotransferase (ALT/SGPT) 17, Alkaline Phosphatase 63, Myoglobin 87.3, Troponin I 0.028, C- Reactive Protein High Sensitivity 12.75H, B-Type Natriuretic Peptide 577.0H, Total Protein 6.4, Albumin 3.8 12/07/22 14:20: Urine Color YELLOW, Urine Clarity CLEAR, Urine pH 6.0, Urine Specific [place] 1.025H, Urine Protein 1+H, Urine Glucose (UA) NEGATIVE, Urine Ketones NEGATIVE, Urine Nitrite POSITIVEH, Urine Bilirubin NEGATIVE, Urine Urobilinogen 0.2, Urine Leukocyte Esterase NEGATIVE, Urine RBC (Auto) NEGATIVE, Urine RBC RARE, Urine WBC 2-5, Urine Crystals NONE, Urine Bacteria LARGEH, Urine Casts NONE, Urine Mucus NEGATIVE, Urine Culture Indicated YES 12/07/22 15:26: Lactic Acid Level 0.96 Laboratory Tests 12/07/22 13:40 A/P-Cardiology Assessment/Admission Diagnosis CHF, acute, etiology undetermined A Fib, apparently chronic - on chronic stroke prophylaxis with rivaroxaban S/p dual chamber pacemaker - followed by Dr Ernst, 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
[2022-12-07] MEDS ORDERED: meTOprolol TARTRATE 50 MG (LOPRESSOR) TAB PO SCH (21:00)
[2022-12-07] MEDS: FINASTERIDE (PROSCAR) 5 MG TAB PO SCH (21:45)
[2022-12-07] MEDS: ACETAMINOPHEN 325 MG TABLET PO SCH (21:46)
[2022-12-08 03:13] VITALS: BP 129/78
[2022-12-08] MEDS: PHENAZOPYRIDINE 100 MG (PYRIDIUM) TABLET PO SCH ×4 (04:00→18:47)
[2022-12-08 05:40] LABS: BASOPHILS % (AUTO) 1 % (0-10); EOSINOPHILS # (AUTO) 0.2 10^3/uL (0.0-0.3); EOSINOPHILS % (AUTO) 4 % (0-10); HEMATOCRIT 35 % (40-54); LYMPHOCYTES % (AUTO) 18 % (12-44); MEAN CORPUSCULAR HEMOGLOBIN 28 pg (25-34); MEAN CORPUSCULAR HGB CONC 32 g/dL (32-36); MEAN CORPUSCULAR VOLUME 90 fL (80-99); MEAN PLATELET VOLUME 9.4 fL (9.0-12.2); MONOCYTES # (AUTO) 0.9 10^3/uL (0.0-1.0); MONOCYTES % (AUTO) 16 % (0-12); NEUTROPHILS # (AUTO) 3.5 10^3/uL (1.8-7.8); NEUTROPHILS % (AUTO) 62 % (42-75); PLATELET COUNT 143 10^3/uL (130-400); WHITE BLOOD COUNT 5.6 10^3/uL (4.3-11.0)
[2022-12-08 06:02] LABS: CALCIUM 9.3 MG/DL (8.5-10.1); CREATININE SERUM 1.24 MG/DL (0.60-1.30); POTASSIUM 3.2 MMOL/L (3.6-5.0)
[2022-12-08] MEDS: CATHETER FLUSH 10 ML SYR IVP SCH ×3 (06:17→22:37)
[2022-12-08] MEDS: FUROSEMIDE 40 MG/4 ML INJ (LASIX) IV SCH ×2 (06:18→15:59)
[2022-12-08 08:00] VITALS: BP 137/73
[2022-12-08] MEDS ORDERED: KCL 20 MEQ TAB (K-DUR) PO ONE (08:30)
--- NOTE | 2022-12-08 08:31 | Progress Note ---
Subjective Subjective Date Seen by Provider: Dec 08, 2022 Time Seen by Provider: 08:15 Pt reports that he is feeling better, he denies chest pain, shortness of breath is better as well - not much beyond his usual. He reports quite a bit of lower abdominal pain last night - has resolved with pyridium Review of Systems General: No Chills; Fatigue, Malaise HEENT: No Dysphasia, No Sinus Congestion Pulmonary: Dyspnea; No Cough Cardiovascular: No: Chest Pain, Palpitations Gastrointestinal: Abdominal Pain (improved from last night); No: Nausea Neurological: Weakness All Other Systems Reviewed All Other Systems Reviewed: Yes Objective Exam Vital Signs Vital Signs Date Time Temp Pulse Resp B/P (MAP) Pulse Ox O2 Delivery O2 Flow Rate FiO2 12/08/22 08:00 36.9 53 18 137/73 (94) 93 Room Air 12/08/22 03:13 36.8 82 18 129/78 (95) 94 Room Air 12/07/22 23:34 36.2 74 18 119/80 (93) 95 NIV CPAP 12/07/22 20:00 Room Air 12/07/22 19:41 36.4 88 20 145/108 (120) 96 NIV CPAP 12/07/22 18:19 Room Air 12/07/22 18:18 36.5 98 20 164/102 (122) 95 Room Air 12/07/22 18:05 37.2 90 20 148/99 (115) 95 Room Air 12/07/22 17:48 36.1 93 20 156/95 (115) 96 Room Air 12/07/22 17:31 36.5 86 20 152/90 (110) 97 Room Air 12/07/22 17:29 37.0 92 20 150/88 (108) 96 Room Air 12/07/22 17:04 36.4 87 20 157/99 (118) 95 Room Air 12/07/22 16:34 36.4 87 20 153/94 (113) 96 Room Air 12/07/22 13:17 36.3 96 18 167/112 (130) 98 Room Air I & O 12/08/22 07:00 Intake Total 1200 ml Output Total 3225 ml Balance -2025 ml General Appearance: No Apparent Distress, WD/WN, Obese HEENT: PERRL/EOMI, Pharynx Normal Neck: Full Range of Motion, Non Tender, Supple Respiratory: Chest Non Tender, Lungs Clear, Normal Breath Sounds, No Accessory Muscle Use; No Wheezing Cardiovascular: No Murmur, Irregularly Irregular Gastrointestinal: Non Tender, Soft Extremity: Normal Range of Motion, Non Tender Neurologic/Psychiatric: Alert, Oriented x3 Skin: Normal Color, Warm/Dry Results Lab Laboratory Tests 12/07/22 13:40: White Blood Count 6.0, Red Blood Count 3.84L, Hemoglobin 11.1L, Hematocrit 35L, Mean Corpuscular Volume 91, Mean Corpuscular Hemoglobin 29, Mean Corpuscular He moglobin Concent 32, Red Cell Distribution Width 14.4, Platelet Count 134, Mean Platelet Volume 9.1, Immature Granulocyte % (Auto) 0, Neutrophils (%) (Auto) 66, Lymphocytes (%) (Auto) 14, Monocytes (%) (Auto) 19H, Eosinophils (%) (Auto) 1, Basophils (%) (Auto) 1, Neutrophils # (Auto) 3.9, Lymphocytes # (Auto) 0.8L, Monocytes # (Auto) 1.1H, Eosinophils # (Auto) 0.1, Basophils # (Auto) 0.0, Immature Granulocyte # (Auto) 0.0, Neutrophils % (Manual) 65, Lymphocytes % (Manual) 16, Monocytes % (Manual) 17, Eosinophils % (Manual) 2, Blood Morphology Comment NORMAL, Sodium Level 142, Potassium Level 4.0, Chloride Level 109H, Carbon Dioxide Level 23, Anion Gap 10, Blood Urea Nitrogen 25H, Creatinine 1.34H , Estimat Glomerular Filtration Rate 51, BUN/Creatinine Ratio 19, Glucose Level 127H, Calcium Level 9.3, Corrected Calcium 9.5, Magnesium Level 2.2, Total Bilirubin 1.2H, Aspartate Amino Transf (AST/SGOT) 23, Alanine Aminotransferase (ALT/SGPT) 17, Alkaline Phosphatase 63, Myoglobin 87.3, Troponin I 0.028, C- Reactive Protein High Sensitivity 12.75H, B-Type Natriuretic Peptide 577.0H, Total Protein 6.4, Albumin 3.8 12/07/22 14:20: Urine Color YELLOW, Urine Clarity CLEAR, Urine pH 6.0, Urine Specific [place] 1.025H, Urine Protein 1+H, Urine Glucose (UA) NEGATIVE, Urine Ketones NEGATIVE, Urine Nitrite POSITIVEH, Urine Bilirubin NEGATIVE, Urine Urobilinogen 0.2, Urine Leukocyte Esterase NEGATIVE, Urine RBC (Auto) NEGATIVE, Urine RBC RARE, Urine WBC 2-5, Urine Crystals NONE, Urine Bacteria LARGEH, Urine Casts NONE, Urine Mucus NEGATIVE, Urine Culture Indicated YES 12/07/22 15:26: Lactic Acid Level 0.96 12/08/22 05:18: White Blood Count 5.6, Red Blood Count 3.87L, Hemoglobin 11.0L, Hematocrit 35L, Mean Corpuscular Volume 90, Mean Corpuscular Hemoglobin 28, Mean Corpuscular Hemoglobin Concent 32, Red Cell Distribution Width 14.3, Platelet Count 143, Mean Platelet Volume 9.4, Immature Granulocyte % (Auto) 1, Neutrophils (%) (Auto) 62, Lymphocytes (%) (Auto) 18, Monocytes (%) (Auto) 16H, Eosinophils (%) (Auto) 4, Basophils (%) (Auto) 1, Neutrophils # (Auto) 3.5, Lymphocytes # (Auto) 1.0, Monocytes # (Auto) 0.9, Eosinophils # (Auto) 0.2, Basophils # (Auto) 0.0, Immature Granulocyte # (Auto) 0.0, Sodium Level 141, Potassium Level 3.2L, Chloride Level 105, Carbon Dioxide Level 24, Anion Gap 12, Blood Urea Nitrogen 24H, Creatinine 1.24, Estimat Glomerular Filtration Rate 56, BUN/Creatinine Ratio 19, Glucose Level 91, Calcium Level 9.3 Assessment/Plan Assessment/Plan Admission Dx Urinary tract infection Urinary retention - Chronic Hypertension Dyspnea on Exertion History of CAD with CHF Edema Atrial fibrillation Sleep Apnea Assessment and Plan Urinary tract infection Urinary retention - Chronic Hypertension Dyspnea on Exertion History of CAD with CHF Edema Atrial fibrillation Sleep Apnea Urinary tract infection due to repeated self catheterizations - Urinary retention - Chronic - continue with prn self-cath - rx for rocephin - iv - pt to be monitored, culture report will be pending for the next 24 - 48 hours. Hypertension - resume home regimen Dyspnea on Exertion monitor symptoms History of CAD with CHF - IV lasix - defer to cardiology Edema - pt on iv lasix, edema resolved - pt will continue on regimen orally when discharged. Atrial fibrillation - resumed anticoagulation - resumed betablocker therapy Sleep Apnea - pt on CPAP dvt prophylaxis with scd's and NOAC gi prophylaxis with ppi Clinical Quality Measures AMI/AHF: ASA po Prior to arrival: Yes DARIN,TEQUILA A MD Dec 08, 2022 08:31
[2022-12-08] MEDS ORDERED: ASPIRIN E.C. 81 MG (ECOTRIN) TAB PO SCH (09:00)
[2022-12-08] MEDS ORDERED: ASPIRIN 81 MG CHEW (CHILDREN'S ASA) PO SCH (09:00)
[2022-12-08] MEDS: ACETAMINOPHEN 325 MG TABLET PO SCH ×2 (09:45→21:02)
[2022-12-08] MEDS: meTOprolol TARTRATE 50 MG (LOPRESSOR) TAB PO SCH ×2 (10:44→21:06)
[2022-12-08] MEDS ORDERED: meTOprolol TARTRATE 50 MG (LOPRESSOR) TAB PO ONE (10:45)
[2022-12-08 11:10] VITALS: BP 112/67
[2022-12-08] MEDS ORDERED: TMSL.4C PO (15:28)
[2022-12-08] MEDS ORDERED: POTA10TA PO (15:28)
[2022-12-08] MEDS ORDERED: RT-ALBUINH INH (15:28)
[2022-12-08] MEDS ORDERED: GABA300C PO (15:28)
[2022-12-08] MEDS ORDERED: LEVA15HF5 INH (15:28)
[2022-12-08] MEDS ORDERED: ACET-2267 PO (15:28)
[2022-12-08] MEDS ORDERED: MULT-422 PO (15:28)
[2022-12-08] MEDS ORDERED: DICL100G13 TP (15:28)
[2022-12-08] MEDS ORDERED: FLUT16SP22 NSEACH (15:28)
[2022-12-08] MEDS ORDERED: DOCU100C37 PO (15:28)
[2022-12-08] MEDS ORDERED: CYCL1DRO OU (15:28)
[2022-12-08] MEDS ORDERED: [UNRECOGNIZED DRUG - OTHER] PO (15:28)
[2022-12-08] MEDS ORDERED: LOSA100T57 PO (15:28)
[2022-12-08] MEDS ORDERED: FURO80TA3 PO (15:34)
[2022-12-08] MEDS: RIVAROXABAN 15 MG TABLET (XARELTO) PO SCH (15:59)
[2022-12-08 16:03] VITALS: BP 152/87
--- NOTE | 2022-12-08 16:38 | Cardiology Progress Note ---
Subjective Date Seen by Provider: Dec 08, 2022 Time Seen by Provider: 15:00 Subjective/Events-last exam No acute issues overnight. Pt states he is still short of breath. Improved but feels like he still has a good way to go. Focused Exam Lactate Level 12/07/22 15:26: Lactic Acid Level 0.96 Objective-Cardiology Exam Last Set of Vital Signs Vital Signs 12/08/22 16:03 Temp 36.4 Pulse 97 Resp 19 B/P (MAP) 152/87 (108) Pulse Ox 94 O2 Delivery Room Air I&O Intake and Output 12/08/22 00:00 Intake Total 600 ml Output Total 2500 ml Balance -1900 ml Intake Oral 600 ml Output Urine Total 2500 ml # Bowel Movements 1 Daily Weight Change No Other physical findings Gen: No acute distress;' A+O x 3, sitting comfortably in the bed Neck: soft supple, no cervical LAD Luns: CTA-bilaterally, no wheezing or rhonchi; + rales 1/3 way up bilaterally CV: nl s1/s2, no m-g-r, RRR Abd: soft nt nd, no HSM, + BS, obese Ext: wwp, no c-c; trace to 1+ BLE edema; 2+ DP and femoral pulses skin: no lesions rashes or ecchymoses are noted. Results Lab Laboratory Tests 12/08/22 05:18 A/P-Cardiology Assessment/Plan 87M with hx of AF, HTN, presents for evaluation of dyspnea, found to have a UTI and CHF. 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
[2022-12-08] MEDS ORDERED: RIVAROXABAN 15 MG TABLET (XARELTO) PO SCH (17:00)
[2022-12-08] MEDS: RIVAROXABAN 20 MG TABLET (XARELTO) PO SCH (17:40)
[2022-12-08] MEDS: cefTRIAXone 1 GM PRE-MIX 50 ML IV SCH (18:46)
[2022-12-08 19:35] VITALS: BP 108/65
[2022-12-08] MEDS: FINASTERIDE (PROSCAR) 5 MG TAB PO SCH (21:02)
[2022-12-08 23:23] VITALS: BP 131/79
[2022-12-09 03:31] VITALS: BP 137/93
[2022-12-09] MEDS: CATHETER FLUSH 10 ML SYR IVP SCH ×3 (05:22→19:45)
[2022-12-09] MEDS: FUROSEMIDE 40 MG/4 ML INJ (LASIX) IV SCH ×2 (05:22→17:59)
[2022-12-09 06:18] LABS: HEMATOCRIT 38 % (40-54); HEMOGLOBIN 12.1 g/dL (13.3-17.7); MEAN CORPUSCULAR HEMOGLOBIN 29 pg (25-34); MEAN CORPUSCULAR HGB CONC 32 g/dL (32-36); MEAN CORPUSCULAR VOLUME 90 fL (80-99); MEAN PLATELET VOLUME 9.4 fL (9.0-12.2); PLATELET COUNT 173 10^3/uL (130-400)
[2022-12-09 06:31] LABS: ALBUMIN 3.7 GM/DL (3.2-4.5); POTASSIUM 3.5 MMOL/L (3.6-5.0)
[2022-12-09 06:32] LABS: CALCIUM 9.6 MG/DL (8.5-10.1)
[2022-12-09 06:34] LABS: TOTAL PROTEIN 6.6 GM/DL (6.4-8.2)
[2022-12-09 06:36] LABS: BILIRUBIN,TOTAL 0.8 MG/DL (0.1-1.0)
[2022-12-09 06:37] LABS: CREATININE SERUM 1.18 MG/DL (0.60-1.30)
[2022-12-09 07:45] VITALS: BP 142/81
[2022-12-09] MEDS: ACETAMINOPHEN 325 MG TABLET PO SCH ×2 (08:11→19:45)
[2022-12-09] MEDS: ASPIRIN E.C. 81 MG (ECOTRIN) TAB PO SCH (08:11)
[2022-12-09] MEDS: PHENAZOPYRIDINE 100 MG (PYRIDIUM) TABLET PO SCH ×3 (08:11→19:44)
[2022-12-09] MEDS: meTOprolol TARTRATE 50 MG (LOPRESSOR) TAB PO SCH ×2 (08:11→19:44)
[2022-12-09 11:21] VITALS: BP 140/68
--- NOTE | 2022-12-09 11:51 | Progress Note ---
Subjective Date Seen by a Provider: Dec 09, 2022 Time Seen by a Provider: 11:47 Subjective/Events-last exam Fwup UTI, CHF with preserved EF, HTN, History of Atrial fibrillation, ANDRES, urinary retention. Feeling better. Still some pain in pelvic area and still some shortness of breath with ambulation. Focused Exam Lactate Level 12/07/22 15:26: Lactic Acid Level 0.96 Objective Exam Vital Signs Date Time Temp Pulse Resp B/P (MAP) Pulse Ox O2 Delivery O2 Flow Rate FiO2 12/09/22 11:21 36.7 73 18 140/68 (92) 95 Room Air 12/09/22 07:45 35.9 93 18 142/81 (101) 93 Room Air 12/09/22 03:31 36.3 52 16 137/93 (108) 96 Room Air 12/08/22 23:23 36.1 65 16 131/79 (96) 96 NIV CPAP 12/08/22 19:35 36.3 74 20 108/65 (79) 93 NIV CPAP 2.00 12/08/22 19:30 NIV CPAP 12/08/22 16:03 36.4 97 19 152/87 (108) 94 Room Air I & O 12/09/22 07:00 Intake Total 1240 ml Output Total 2900 ml Balance -1660 ml Capillary Refill : Less Than 3 Seconds General Appearance: No Apparent Distress Neck: Supple Respiratory: Crackles (bases), Decreased Breath Sounds Cardiovascular: Regular Rate, Rhythm, Systolic Murmur Gastrointestinal: normal bowel sounds, soft, tenderness (suprapubic) Extremity: Non Tender, No Calf Tenderness Neurologic/Psychiatric: Alert, Oriented x3 Skin: Warm/Dry Results Lab Laboratory Tests 12/09/22 05:43: White Blood Count 5.0, Red Blood Count 4.15L, Hemoglobin 12.1L, Hematocrit 38L, Mean Corpuscular Volume 90, Mean Corpuscular Hemoglobin 29, Mean Corpuscular Hemoglobin Concent 32, Red Cell Distribution Width 14.0, Platelet Count 173, Mean Platelet Volume 9.4, Sodium Level 141, Potassium Level 3.5L, Chloride Level 103, Carbon Dioxide Level 25, Anion Gap 13, Blood Urea Nitrogen 27H, Creatinine 1.18, Estimat Glomerular Filtration Rate 59, BUN/Creatinine Ratio 23, Glucose Level 103, Calcium Level 9.6, Corrected Calcium 9.8, Total Bilirubin 0.8, Aspartate Amino Transf (AST/SGOT) 24, Alanine Aminotransferase (ALT/SGPT) 15, Alkaline Phosphatase 71, Total Protein 6.6, Albumin 3.7 Microbiology 12/07/22 Blood Culture - Preliminary, Resulted No growth 12/07/22 Urine Culture - Final, Complete Escherichia coli Assessment/Plan Assessment/Plan Assess & Plan/Chief Complaint 1. UTI with E. coli--continue rocephin 2. Hypertension--stable 3. CHF with preserved EF--continue IV lasix at 80mg BID 4. History of Atrial Fibrillation--on Xarelto 5. ANDRES--using home CPAP 6. Urinary Retention--back on home meds and patient states straight caths twice a day Plan for DC back to [place] tomorrow Clinical Quality Measures AMI/AHF: ASA po Prior to arrival: Yes BRANDEN CARREON DO Dec 09, 2022 11:51
[2022-12-09] MEDS ORDERED: KCL 20 MEQ TAB (K-DUR) PO NR (12:00)
--- NOTE | 2022-12-09 13:12 | Cardiology Progress Note ---
Subjective Date Seen by Provider: Dec 09, 2022 Time Seen by Provider: 12:45 Subjective/Events-last exam No acute events overnight. Breathing improved and similar to baseline of 2 months prior to admission. likely d/c in AM- pt excited. Focused Exam Lactate Level 12/07/22 15:26: Lactic Acid Level 0.96 Objective-Cardiology Exam Last Set of Vital Signs Vital Signs 12/08/22 12/09/22 19:35 11:21 Temp 36.7 Pulse 73 Resp 18 B/P (MAP) 140/68 (92) Pulse Ox 95 O2 Delivery Room Air O2 Flow Rate 2.00 I&O Intake and Output 12/09/22 00:00 Intake Total 1540 ml Output Total 3375 ml Balance -1835 ml Intake Oral 1540 ml Output Urine Total 3375 ml Other physical findings Gen: No acute distress;' A+O x 3, sitting comfortably in the bed Neck: soft supple, no cervical LAD Luns: CTA-bilaterally, no wheezing or rhonchi; + rales 1/[address] up bilaterally CV: nl s1/s2, no m-g-r, RRR Abd: soft nt nd, no HSM, + BS, obese Ext: wwp, no c-c; trace to 1+ BLE edema; 2+ DP and femoral pulses skin: no lesions rashes or ecchymoses are noted. Results Lab Laboratory Tests 12/09/22 05:43 A/P-Cardiology Assessment/Plan 87M with hx of AF, HTN, presents for evaluation of dyspnea, found to have a UTI and CHF. 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 AMANDA ISRAEL MD Dec 09, 2022 13:12
[2022-12-09 15:34] VITALS: BP 128/73
[2022-12-09] MEDS: RIVAROXABAN 20 MG TABLET (XARELTO) PO SCH (17:58)
[2022-12-09] MEDS: cefTRIAXone 1 GM PRE-MIX 50 ML IV SCH (17:59)
[2022-12-09 19:42] VITALS: BP 126/80
[2022-12-09] MEDS: FINASTERIDE (PROSCAR) 5 MG TAB PO SCH (19:44)
[2022-12-09] MEDS: KCL 20 MEQ TAB (K-DUR) PO SCH (19:45)
[2022-12-09 23:26] VITALS: BP 121/77
[2022-12-09] MEDS ORDERED: ACETAMINOPHEN 325 MG TABLET ONE (23:26)
[2022-12-09] MEDS ORDERED: ACETAMINOPHEN 325 MG TABLET PO PRN (23:30)
[2022-12-10 03:16] VITALS: BP 107/73
[2022-12-10] MEDS: FUROSEMIDE 40 MG/4 ML INJ (LASIX) IV SCH (05:25)
[2022-12-10] MEDS: CATHETER FLUSH 10 ML SYR IVP SCH (05:25)
[2022-12-10 05:30] LABS: POTASSIUM 3.6 MMOL/L (3.6-5.0)
[2022-12-10 05:31] LABS: CALCIUM 9.5 MG/DL (8.5-10.1)
[2022-12-10 05:36] LABS: CREATININE SERUM 1.15 MG/DL (0.60-1.30)
[2022-12-10 08:13] VITALS: BP 123/76
[2022-12-10] MEDS: meTOprolol TARTRATE 50 MG (LOPRESSOR) TAB PO SCH (08:28)
[2022-12-10] MEDS: KCL 20 MEQ TAB (K-DUR) PO SCH (08:28)
[2022-12-10] MEDS: ASPIRIN E.C. 81 MG (ECOTRIN) TAB PO SCH (08:28)
[2022-12-10] MEDS: ACETAMINOPHEN 325 MG TABLET PO SCH (08:29)
[2022-12-10] MEDS ORDERED: POTA-51 PO (09:41)
[2022-12-10] MEDS ORDERED: CEFD300C3 PO (09:43)
--- NOTE | 2022-12-10 10:57 | Discharge Summary ---
Diagnosis/Chief Complaint Date of Admission Dec 07, 2022 at 16:12 Date of Discharge Discharge Date: Dec 10, 2022 Discharge Diagnosis 1. UTI with E. coli-improved 2. Hypertension--stable 3. CHF with preserved EF--improved 4. History of Atrial Fibrillation--on Xarelto 5. ANDRES--using home CPAP 6. Urinary Retention--back on home meds and patient states straight caths twice a day 7. Hypokalemia--improved Discharge Summary Hospital Course Was the Problem List Reviewed?: Yes Hospital Course This is a 87 year old female of Dr. Duvall's who resides at [facility] in [place]. He was brought to the [facility] emergency room with shortness of breath and worsening edema. He was found to have an acute UTI as well as decompensated con gestive heart failure. He has a history of chronic atrial fibrillation. He was admitted to the medical floor and started on IV rocephin for his UTI. His urine culture did grow out E. coli which was sensitive to the rocephin. He was given IV lasix at 80mg BID. He diuresed well with the IV lasix and his BUN and creatinine improved with the diuresis. His edema of his LEs is much improved and he is down about 6kg in weight. His shortness of breath also improved with the IV lasix. His heart rate was well controlled. He has been up ambulating in the halls and is feeling good and feels ready to be discharged back to the [facility] facility. He states he has a follow up appointment this coming week with cardiology and pulmonology and a pending appointment with Dr. Duvall in 8 days so he will keep all these appointments as scheduled. He will be sent home on 1 week of cefdinir then have a repeat urine culture 48hrs after he completes his antibiotic course. He will also have a repeat Chem 7 in 5 days to assess his potassium and BUN/Cr. He will resume all his previous home meds, his home CPAP and his routine straight catheterization as per previous orders. Labs Laboratory Tests 12/07/22 13:40: Red Blood Count 3.84L, Hemoglobin 11.1L, Hematocrit 35L, Monocytes (%) (Auto) 19H, Lymphocytes # (Auto) 0.8L, Monocytes # (Auto) 1.1H, Chloride Level 109H, Blood Urea Nitrogen 25H, Creatinine 1.34H, Glucose Level 127H, Total Bilirubin 1 .2H, C-Reactive Protein High Sensitivity 12.75H, B-Type Natriuretic Peptide 577.0H 12/07/22 14:20: Urine Specific [place] 1.025H, Urine Protein 1+H, Urine Nitrite POSITIVEH, Urine Bacteria LARGEH 12/07/22 15:26: 12/08/22 05:18: Red Blood Count 3.87L, Hemoglobin 11.0L, Hematocrit 35L, Monocytes (%) (Auto) 16H, Blood Urea Nitrogen 24H, Potassium Level 3.2L 12/09/22 05:43: Red Blood Count 4.15L, Hemoglobin 12.1L, Hematocrit 38L, Potassium Level 3.5L, Blood Urea Nitrogen 27H 12/10/22 05:03: Blood Urea Nitrogen 28H, Glucose Level 107H Procedures None. Discharge Physical Examination Allergies: Coded Allergies: NKANo Known Allergies (Verified Allergy, Unknown, 05/07/17) Vitals & I&Os Vital Signs Date Time Temp Pulse Resp B/P (MAP) Pulse Ox O2 Delivery O2 Flow Rate FiO2 12/10/22 08:13 36.5 72 18 123/76 (92) 94 Room Air 12/09/22 19:17 2.00 General Appearance: Alert, Oriented X3 Respiratory: Clear to Auscultation Cardiovascular: Other (irregular) Abdominal: Normal Bowel Sounds, Soft, No Tenderness Extremities: No Edema Psych/Mental Status: Mental Status NL, Mood NL Discharge Home Medications Reviewed and agree with Discharge Medication list on patient's Discharge Instruction sheet Instructions to Patient/Family Please see electronic discharge instructions given to patient. Clinical Quality Measures AMI/AHF: ASA po Prior to arrival: Yes BRANDEN CARREON DO Dec 10, 2022 10:57
[2022-12-10 11:15] VITALS: BP 123/76
[2022-12-11] MEDS ORDERED: KCL 20 MEQ TAB (K-DUR) PO SCH (07:00)
[2022-12-11] MEDS ORDERED: FUROSEMIDE 40 MG (LASIX) TAB PO SCH (09:00)
== END 2022-12-15 08:36 | disposition home or self-care (01) | DRG 698 ==
LOC: EDUNIT# 13:04 → ER 13:07 → 4TH 16:12
PROVIDERS: ADMIT Family Medicine; ATTEND Family Medicine
DX: T83.518A Infection and inflammatory reaction due to other urinary catheter, initial encounter (principal); I50.31 Acute diastolic (congestive) heart failure; N39.0 Urinary tract infection, site not specified; I48.20 Chronic atrial fibrillation, unspecified; I13.0 Hypertensive heart and chronic kidney disease with heart failure and stage 1 through stage 4 chronic kidney disease, or unspecified chronic kidney disease; R33.9 Retention of urine, unspecified; I25.10 Atherosclerotic heart disease of native coronary artery without angina pectoris; M19.90 Unspecified osteoarthritis, unspecified site; G89.29 Other chronic pain; M54.9 Dorsalgia, unspecified; I25.2 Old myocardial infarction; Z79.82 Long term (current) use of aspirin; Z79.899 Other long term (current) drug therapy; I11.0 Hypertensive heart disease with heart failure; G47.33 Obstructive sleep apnea (adult) (pediatric); Z95.0 Presence of cardiac pacemaker; N18.2 Chronic kidney disease, stage 2 (mild); B96.20 Unspecified Escherichia coli [E. coli] as the cause of diseases classified elsewhere; Z95.5 Presence of coronary angioplasty implant and graft
CPT/HCPCS: 36415; 51702; 71045; 80048; 80053; 81000; 83605; 83735; 83874; 83880; 84484; 85007; 85025; 85027; 86141; 87040; 87077; 87088; 87186; 93005; 93306

== ENCOUNTER 2023-08-08 14:30 | Emergency (ER) | payer MEDICARE, OTHER ==
[~2023-08-08 14:30] MED LIST changes: +ACET-2267 PO; +CYCL1DRO OU; +DICL100G60 TP; +DOCU100C37 PO; +FLUT16SP22 NSEACH; +FURO80TA3 PO; +GABA300C PO; +LEVA15HF5 INH; +LOSA100T58 PO; +MULT-422 PO; +POTA-185 PO; +POTA-330 PO; +RT-ALBUINH INH; +[UNRECOGNIZED DRUG - OTHER] PO
[2023-08-08] MEDS ORDERED: ASPIRIN 81 MG CHEWABLE TABLET PO ONE (14:45)
[2023-08-08] MEDS ORDERED: NITROGLYCERIN 2% OINT 1 GM UNIT DOSE PACKET TOP ONE (14:45)
--- NOTE | 2023-08-08 14:45 | ED Cardiac General ---
History of Present Illness General Chief Complaint: Chest Pain Stated Complaint: CHEST PAINS Nursing Triage Note: PT TO RM 3 PER W/C PT STATES HAS HAD CHEST PAIN SINCE THIS AM. STATES PAIN EALIER 8/10 AT THIS X 5/10 AFTER 3 NITRO APPROX LAST ONE AT 1400. STATES MOSTLY HURTS ON R SIDE OF CHEST AND BACK. Source: patient, old records Exam Limitations: no limitations History of Present Illness Date Seen by Provider: Aug 08, 2023 Time Seen by Provider: 14:29 Initial Comments 88-year-old male with past medical history of CHF, hypertension, A-fib coming in due to chest pain. Started this morning, center of his chest, constant, better with nitro. Now it is mostly hurting on the right side of his chest. Denies any shortness of breath, vomiting, weakness, numbness, or any other concerns. He has held his Xarelto and aspirin because of a potential skin procedure today which was canceled. ASA po CORRECTION OFFICER: No Allergies and Home Medications Allergies Coded Allergies: NKANo Known Allergies (Verified Allergy, Unknown, 05/07/17) Patient Home Medication List Home Medication List Reviewed: Yes Acetaminophen (Tylenol Extra Strength) 500 Mg Tablet, 1,000 MG PO BID, (Reported) Entered as Reported by: CANDY RUBIN on 12/08/22 1528 Albuterol Sulfate (Ventolin Hfa) 1 Puff Puff, 2 PUFF INH Q4H PRN for SHORTNESS OF BREATH, (Reported) Entered as Reported by: CANDY RUBIN on 12/08/22 1528 Aspirin (Aspirin EC) 81 Mg Tablet.dr, 81 MG PO DAILY, (Reported) Entered as Reported by: DESHAUN GRIJALVA on 05/07/17 1027 Cefdinir (Cefdinir) 300 Mg Capsule, 300 MG PO BID Prescribed by: BRANDEN CARREON on 12/10/22 0943 Cyclosporine (Restasis) 0.05 % Drope[place], 1 DROP OU BID, (Reported) Entered as Reported by: CANDY RUBIN on 12/08/22 1528 Diclofenac Sodium (Diclofenac Sodium) 1 % Gel..gram., 1 APPLIC TP Q6H PRN for PAIN-BREAKTHROUGH, (Reported) Entered as Reported by: CANDY RUBIN on 12/08/22 1528 Docusate Sodium (Docusate Sodium) 100 Mg Capsule, 200 MG PO HS, (Reported) Entered as Reported by: CANDY RUBIN on 12/08/22 152 Doxycycline Hyclate (Doxycycline Hyclate) 100 Mg Tablet, 100 MG PO BID Prescribed by: APRIL SHINE on 08/08/23 1542 Fenofibrate (Fenofibrate) 54 Mg Tablet, 54 MG PO DAILY, (Reported) Entered as Reported by: DESHAUN GRIJALVA on 05/07/17 101 Finasteride (Finasteride) 5 Mg Tablet, 5 MG PO HS, (Reported) Entered as Reported by: SHAINA CASTRO on 05/07/17 0502 Fluticasone Propionate (Fluticasone Propionate) 50 Mcg/Actuation [place].susp, 1 SPRAY NSEACH DAILY PRN for CONGESTION, (Reported) Entered as Reported by: CANDY RUBIN on 12/08/22 152 Furosemide (Furosemide) 80 Mg Tablet, 80 MG PO DAILY, (Reported) Entered as Reported by: CANDY RUBIN on 12/08/22 153 Levalbuterol Tartrate (Levalbuterol Tartrate Hfa) 45 Mcg/Actuation Hfa.aer.ad, 2 PUFF INH Q6H PRN for SHORTNESS OF BREATH, (Reported) Entered as Reported by: CANDY RUBIN on 12/08/22 152 Metoprolol Tartrate (Metoprolol Tartrate) 100 Mg Tablet, 100 MG PO BID, (Reported) Entered as Reported by: DESHAUN GRIJALVA on 05/07/17 101 Potassium Chloride (Potassium Chloride) 20 Meq Tablet.er, 20 MEQ PO BID Prescribed by: BRANDEN CARREON on 12/10/22 0941 Rivaroxaban (Xarelto Tablet) 20 Mg Tablet, 20 MG PO HS, (Reported) Entered as Reported by: SHAINA CASTRO on 05/07/17 0502 Simvastatin (Simvastatin) 40 Mg Tablet, 40 MG PO HS, (Reported) Entered as Reported by: DESHAUN GRIJALVA on 05/07/17 1014 Tamsulosin HCl (Flomax) 0.4 Mg Cap, 0.8 MG PO DAILY, (Reported) Entered as Reported by: CANDY RUBIN on 12/08/22 152 Vit A,C & E/Lutein/Minerals (Ocuvite with Lutein Tablet) 1 Each Tablet, 1 EACH PO DAILY, (Reported) Entered as Reported by: CANDY RUBIN on 12/15/19 0954 [Arithrimend] TAB, 2 CAP PO DAILY, (Reported) Entered as Reported by: CANDY RUBIN on 12/15/19 0954 [Mens Multi W/Mineral] , 1 PACKET PO HS, (Reported) Entered as Reported by: ACNDY RUBIN on 12/08/22 1528 Review of Systems Review of Systems Constitutional: No fever EENTM: No Symptoms Reported Respiratory: No Symptoms Reported Cardiovascular: See HPI Gastrointestinal: No Symptoms Reported Genitourinary: No Symptoms Reported Musculoskeletal: no symptoms reported Skin: no symptoms reported Psychiatric/Neurological: No Symptoms Reported Endocrine: No Symptoms Reported Hematologic/Lymphatic: No Symptoms Reported Past Khvyzix-Dewgjl-Nwvmrt Hx Patient Social History Tobacco Use?: No Substance use?: No Alcohol Use?: No Pt feels they are or have been: No Immunizations Up To Date Tetanus Booster (TDap): Less than 5yrs PED Vaccines UTD: No First/Initial COVID19 Vaccinat: UNKNOWN Second COVID19 Vaccination Juvenal: UNKNOWN Third COVID19 Vaccination Date: UNKNOWN Seasonal Allergies Seasonal Allergies: No Past Medical History Surgery/Hospitalization HX: heart caths, stents, pacemaker, rt foot, hernia, bi lat shoulders Surgeries: Yes (hernia repair x 2, rt shoulder ball replaced, lt total shoulder, R foot sx) Bowel Surgery, Coronary Stent, Gallbladder, Orthopedic Respiratory: Yes (CPAP at NOC, SOB WITH EXERTION R/T CARDIAC) Sleep Apnea Currently Using CPAP: Yes Currently Using BIPAP: No Cardiac: Yes (stents in heart, PACEMAKER) Atrial Fibrillation, Coronary Artery Disease, Heart Attack Neurological: No Reproductive Disorders: No Sexually Transmitted Disease: No HIV/AIDS: No Prostate Problems Gastrointestinal: Yes (history of bowel resection from colon cancer. History of colitis.) Diverticulosis Musculoskeletal: Yes Arthritis, Back Injury, Chronic Back Pain Endocrine: No Cataract Cancer: Yes (hx of colon resection) Colon Psychosocial: No Integumentary: No Blood Disorders: No Adverse Reaction/Blood Tranf: No Family Medical History ALS (amyotrophic lateral sclerosis) 19 FATHER G8 BROTHER G8 SISTER Alzheimer's disease 19 FATHER FH: Alzheimers disease 19 FATHER Myocardial infarction 19 MOTHER Heart Disease, Hypertension Physical Exam Vital Signs Vital Signs - First Documented 08/08/23 14:30 Pulse 82 Resp 21 B/P (MAP) 130/89 (103) Pulse Ox 92 Capillary Refill : Less Than 3 Seconds Height, Weight, BMI Height: 5'6.00" Weight: 223lbs. 5.0oz. 101.055344xg; 34.49 BMI Method:Stated General Appearance: No Apparent Distress, WD/WN HEENT: PERRL/EOMI, Normal ENT Inspection, Pharynx Normal Neck: Full Range of Motion, Normal Inspection, Non Tender, Supple Respiratory: Chest Non Tender, Lungs Clear, Normal Breath Sounds, No Accessory Muscle Use, No Respiratory Distress Cardiovascular: Regular Rate, Rhythm, Normal Peripheral Pulses Gastrointestinal: Normal Bowel Sounds, Non Tender, Soft Extremity: Normal Capillary Refill, Normal Inspection, Normal Range of Motion, Non Tender, No Calf Tenderness Neurologic/Psychiatric: Alert, No Motor/Sensory Deficits, Normal Mood/Affect Skin: Normal Color, Warm/Dry Progress/Results/Core Measures Results/Orders Lab Results Laboratory Tests Test 08/08/23 14:35 Range/Units White Blood Count 7.3 4.3-11.0 10^3/uL Red Blood Count 3.72 L 4.30-5.52 10^6/uL Hemoglobin 11.1 L 13.3-17.7 g/dL Hematocrit 35 L 40-54 % Mean Corpuscular Volume 94 80-99 fL Mean Corpuscular Hemoglobin 30 25-34 pg Mean Corpuscular Hemoglobin Concent 32 32-36 g/dL Red Cell Distribution Width 14.0 10.0-14.5 % Platelet Count 141 130-400 10^3/uL Mean Platelet Volume 8.5 L 9.0-12.2 fL Immature Granulocyte % (Auto) 0 % Neutrophils (%) (Auto) 78 H 42-75 % Lymphocytes (%) (Auto) 7 L 12-44 % Monocytes (%) (Auto) 13 H 0-12 % Eosinophils (%) (Auto) 1 0-10 % Basophils (%) (Auto) 0 0-10 % Neutrophils # (Auto) 5.7 1.8-7.8 10^3/uL Lymphocytes # (Auto) 0.5 L 1.0-4.0 10^3/uL Monocytes # (Auto) 0.9 0.0-1.0 10^3/uL Eosinophils # (Auto) 0.1 0.0-0.3 10^3/uL Basophils # (Auto) 0.0 0.0-0.1 10^3/uL Immature Granulocyte # (Auto) 0.0 0.0-0.1 10^3/uL Neutrophils % (Manual) 82 % Lymphocytes % (Manual) 3 % Monocytes % (Manual) 12 % Eosinophils % (Manual) 3 % Basophils % (Manual) 0 % Band Neutrophils 0 % Percent Immature Platelet Fraction 1.3 0.0-7.6 % Blood Morphology Comment NORMAL Prothrombin Time 15.4 H 12.2-14.7 SEC INR Comment 1.2 0.8-1.4 Activated Partial Thromboplast Time 37 H 24-35 SEC Sodium Level 136 135-145 MMOL/L Potassium Level 4.0 3.6-5.0 MMOL/L Chloride Level 101 98-107 MMOL/L Carbon Dioxide Level 25 21-32 MMOL/L Anion Gap 10 5-14 MMOL/L Blood Urea Nitrogen 16 7-18 MG/DL Creatinine 1.03 0.60-1.30 MG/DL Estimat Glomerular Filtration Rate 69 BUN/Creatinine Ratio 16 Glucose Level 146 H 70-105 MG/DL Calcium Level 9.2 8.5-10.1 MG/DL Corrected Calcium 9.3 8.5-10.1 MG/DL Magnesium Level 1.9 1.6-2.4 MG/DL Total Bilirubin 1.3 H 0.1-1.0 MG/DL Aspartate Amino Transf (AST/SGOT) 26 5-34 U/L Alanine Aminotransferase (ALT/SGPT) 20 0-55 U/L Alkaline Phosphatase 128 40-136 U/L Troponin I < 0.028 <0.028 NG/ML B-Type Natriuretic Peptide 913.0 H <100.0 PG/ML Total Protein 6.6 6.4-8.2 GM/DL Albumin 3.9 3.2-4.5 GM/DL Lipase 28 8-78 U/L My Orders Orders - APRIL SHINE MD Cbc And Automated Diff (08/08/23 14:39) Magnesium (08/08/23 14:39) Chest 1 View, Ap/Pa Only (08/08/23 14:39) Ekg Tracing (08/08/23 14:39) Comprehensive Metabolic Panel (08/08/23 14:39) Protime With Inr (08/08/23 14:39) Partial Thromboplastin Time (08/08/23 14:39) O2 (08/08/23 14:39) Monitor-Rhythm Ecg Trace Only (08/08/23 14:39) Ed Iv/Invasive Line Start (08/08/23 14:39) Lipase (08/08/23 14:39) Bnp [place] (08/08/23 14:39) Troponin I [place] (08/08/23 14:39) Aspirin Chewable Tablet (Aspirin Chewabl (08/08/23 14:45) Nitroglycerin Ointment (Nitroglycerin (08/08/23 14:45) Manual Differential (08/08/23 14:35) Furosemide Injection (Furosemide Injec (08/08/23 15:45) Doxycycline Hyclate Tablet (Doxycycline (08/08/23 15:42) Potassium Chloride (Tablet) (Potassium C (08/08/23 15:43) Medications Given in ED Current Medications Medications Dose Ordered Sig/Partha Route Start Time Stop Time Status Last Admin Dose Admin Aspirin 324 mg ONCE ONCE PO 08/08/23 14:45 08/08/23 14:46 DC 08/08/23 14:48 324 MG Nitroglycerin 1 inch ONCE ONCE TOP 08/08/23 14:45 08/08/23 14:46 DC 08/08/23 14:48 1 INCH Vital Signs/I&O 08/08/23 14:30 Pulse 82 Resp 21 B/P (MAP) 130/89 (103) Pulse Ox 92 Blood Pressure Mean: 103 Progress Progress Note : Progress Note 88-year-old male with above history coming in due to chest pain. ABCs were intact and vitals were stable on presentation. Physical exam reassuring with no acute abnormalities. EKG ordered and interpreted by me showing a paced rhythm with no STEMI. Chest x-ray ordered and interpreted by me showing some central vascular congestion. The radiologist also read potential opacity versus atelectasis. We will go ahead and treat him with doxycycline. His BNP is elevated, troponin normal, creatinine normal. He did receive nitro and aspirin on arrival. I will go ahead and give him some IV Lasix as well. Very unlikely to be ACS given his constant pain for many hours with a negative troponin. He is also low risk for PE especially given he is on Xarelto. We will write a prescription for antibiotics. I believe he is stable for discharge with outpatient follow-up. He was sent home with strict return precautions. Diagnostic Imaging Diagonstic Imaging: Xray (chest) Comments [facility]. [place], [place] NAME: MICHELINE ORTIZ [facility] REC#: [id number] PT STATUS: REG ER : 1935 PHYSICIAN: APRIL SHINE MD ADMIT DATE: 08/08/23/ER Draft Date of Exam:08/08/23 CHEST 1 VIEW, AP/PA ONLY INDICATION: Chest pain. TECHNIQUE/COMPARISON: A frontal chest was obtained at 2:54 PM and compared with 12/07/2022. FINDINGS: There is cardiomegaly. There is no change in the pacemaker device. There is mild central vascular congestion. There is a minimal right basilar infiltrate versus atelectasis. There is no pneumothorax or pleural fluid. IMPRESSION: Cardiomegaly and mild central vascular congestion with mild right basilar infiltrate versus atelectasis. Dictated on workstation # [id number] Dict: 08/08/23 1503 Trans: 08/08/23 1507 [id number] Interpreted by: SONYA KRISHNA MD Electronically signed by: Departure Impression Primary Impression: CHF exacerbation Qualified Codes: I50.23 - Acute on chronic systolic (congestive) heart fail ure Disposition: 01 HOME, SELF-CARE Condition: Stable Departure-Patient Inst. Decision time for Depature: 16:00 Referrals: TEQUILA WEBSTER MD (PCP/Family) Primary Care Physician Patient Instructions: Heart Failure ED Add. Discharge Instructions: There does appear to be a little extra fluid on your lungs. We gave you extra dose of Lasix in the ER today. Take an extra dose tomorrow as well and double up on your potassium tomorrow as well. We also sent in for an antibiotic as there may be a developing infection in your lung as well. You are not having any obvious heart attack in the ER which is reassuring. If symptoms are not improving, please call your salesperson shoes. Scripts Doxycycline Hyclate (Doxycycline Hyclate) 100 Mg Tablet 100 MG PO BID for 7 Days, #14 TAB 0 Refills Prov: APRIL SHINE MD 08/08/23 APRIL SHINE MD Aug 08, 2023 14:45
[2023-08-08 14:46] LABS: BASOPHILS % (AUTO) 0 % (0-10); HEMOGLOBIN 11.1 g/dL (13.3-17.7)
[2023-08-08 14:48] LABS: EOSINOPHILS # (AUTO) 0.1 10^3/uL (0.0-0.3); EOSINOPHILS % (AUTO) 1 % (0-10); HEMATOCRIT 35 % (40-54); LYMPHOCYTES # (AUTO) 0.5 10^3/uL (1.0-4.0); LYMPHOCYTES % (AUTO) 7 % (12-44); MEAN CORPUSCULAR HEMOGLOBIN 30 pg (25-34); MEAN CORPUSCULAR HGB CONC 32 g/dL (32-36); MEAN CORPUSCULAR VOLUME 94 fL (80-99); MEAN PLATELET VOLUME 8.5 fL (9.0-12.2); MONOCYTES # (AUTO) 0.9 10^3/uL (0.0-1.0); MONOCYTES % (AUTO) 13 % (0-12); NEUTROPHILS # (AUTO) 5.7 10^3/uL (1.8-7.8); NEUTROPHILS % (AUTO) 78 % (42-75); PLATELET COUNT 141 10^3/uL (130-400); WHITE BLOOD COUNT 7.3 10^3/uL (4.3-11.0)
[2023-08-08 14:59] LABS: ALBUMIN 3.9 GM/DL (3.2-4.5); INR 1.2 (0.8-1.4); PROTHROMBIN TIME PATIENT 15.4 SEC (12.2-14.7)
[2023-08-08 15:00] LABS: CHLORIDE 101 MMOL/L (98-107); SODIUM 136 MMOL/L (135-145)
[2023-08-08 15:01] LABS: CALCIUM 9.2 MG/DL (8.5-10.1)
[2023-08-08 15:02] LABS: BAND NEUTROPHILS 0 %; BASOPHILS % (MANUAL) 0 %; EOSINOPHILS % (MANUAL) 3 %; GLUCOSE 146 MG/DL (70-105); LYMPHOCYTES % (MANUAL) 3 %; MONOCYTES % (MANUAL) 12 %; NEUTROPHILS % (MANUAL) 82 %; RBC MORPH NORMAL; TOTAL PROTEIN 6.6 GM/DL (6.4-8.2)
[2023-08-08 15:03] LABS: CARBON DIOXIDE 25 MMOL/L (21-32)
[2023-08-08 15:04] LABS: BILIRUBIN,TOTAL 1.3 MG/DL (0.1-1.0)
[2023-08-08 15:05] LABS: ALKALINE PHOSPHATASE 128 U/L (40-136)
[2023-08-08 15:06] LABS: CREATININE SERUM 1.03 MG/DL (0.60-1.30); GFR ESTIMATED 69
[2023-08-08 15:07] LABS: BUN/CREATININE RATIO 16
[2023-08-08 15:08] LABS: ALANINE AMINOTRANSFERASE 20 U/L (0-55); MAGNESIUM 1.9 MG/DL (1.6-2.4)
--- NOTE | 2023-08-08 15:08 | Diagnostic Imaging Report ---
INDICATION: Chest pain. TECHNIQUE/COMPARISON: A frontal chest was obtained at 2:54 PM and compared with 12/07/2022. FINDINGS: There is cardiomegaly. There is no change in the pacemaker device. There is mild central vascular congestion. There is a minimal right basilar infiltrate versus atelectasis. There is no pneumothorax or pleural fluid. IMPRESSION: Cardiomegaly and mild central vascular congestion with mild right basilar infiltrate versus atelectasis. Dictated by: Dictated on workstation # [id number]
[2023-08-08 15:09] LABS: LIPASE 28 U/L (8-78)
[2023-08-08] MEDS ORDERED: DOXY100T2 PO ×2 (15:42→15:51)
[2023-08-08] MEDS ORDERED: POTASSIUM CHLORIDE 10 MEQ TABLET PO STA (15:43)
[2023-08-08] MEDS ORDERED: FUROSEMIDE INJECTION 40 MG/4 ML VIAL IVP ONE (15:45)
[2023-08-08 16:05] VITALS: BP 144/101
== END 2023-08-08 16:10 | disposition home or self-care (01) ==
LOC: ER 14:30
DX: I50.9 Heart failure, unspecified (principal); G47.30 Sleep apnea, unspecified; Z99.89 Dependence on other enabling machines and devices; Z95.5 Presence of coronary angioplasty implant and graft; Z95.0 Presence of cardiac pacemaker
CPT/HCPCS: 36415; 71045; 80053; 83690; 83735; 83880; 84484; 85007; 85027; 85610; 85730; 93005; 93041; 96374

== ENCOUNTER → 2023-09-10 | Outpatient (CLI) | payer MEDICARE, OTHER ==
[~2023-09-10] MED LIST changes: +DOXY100T2 PO
--- NOTE | 2023-09-10 18:32 | Diagnostic Imaging Report ---
INDICATION: COPD exacerbation. Comparison is made with prior exam of 12/16/2019. FINDINGS: There is some bibasilar atelectasis and/or pneumonitis. There is cardiomegaly and mild venous congestion. No pleural effusion or pneumothorax. Mediastinum is unremarkable. Pacemaker overlies left hemithorax. IMPRESSION: Bibasilar atelectasis and/or pneumonitis. Cardiomegaly and mild central pulmonary venous congestion. Dictated by: Dictated on workstation # [id number]
== END ==
LOC: RAD 17:59
PROVIDERS: ATTEND Physician Assistant
DX: J44.1 Chronic obstructive pulmonary disease with (acute) exacerbation (principal); I51.7 Cardiomegaly
CPT/HCPCS: 71046